=== PATIENT | female | born 1945 | race Caucasian/White ===

== ENCOUNTER 2016-08-09 09:58 | Inpatient (IN) | payer BC, OTHER ==
[~2016-08-09] VITALS: Ht 172.7 cm; Wt 69.5 kg
[~2016-08-09 09:58] MED LIST: ALBU1AER9 INH; ALBUAER2 INH; CHOL100010 PO; CLRD/12 PO; DSY/150 PO; EPP3/2 IM; FLUO0.05 TOP; FLUO20CA37 PO; FLUT0.0529 NAE; MAGN250T22 PO; MELA1TAB3 PO; RANI300T PO; RIZA10TA19 PO; SIMV20TA5 PO; ZAFI1TAB10 PO
[2016-08-09] MEDS ORDERED: SODIUM CHLORIDE 0.9% 1000ML 1,000 ML IV STA (10:13)
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
[2016-08-09 10:23] LABS: HEMATOCRIT 36.3 % (37-47); MEAN CELL VOLUME 74.8 fL (80-100); MEAN CORPUSCULAR HEMOGLOBIN 27.8 pg (25-34); MEAN CORPUSCULAR HGB CONC 37.2 g/dl (32-36); MEAN PLATELET VOLUME 9.5 fL (7.4-10.4); PLATELET COUNT 260 K/uL (130-400); RED BLOOD COUNT 4.85 M/uL (4.2-5.4); WHITE BLOOD COUNT 10.18 K/uL (4.8-10.8)
[2016-08-09] MEDS ORDERED: VNTHFA/IN INH (10:29)
--- NOTE | 2016-08-09 10:31 | DIAGNOSTIC IMAGING REPORT ---
CHEST ONE VIEW PORTABLE CLINICAL HISTORY: Weakness. Lightheaded. COMPARISON STUDY: Chest radiograph August 12, 2015. FINDINGS: No pneumothorax or pleural effusion is present. Pulmonary vascularity is normal. Cardiac size is normal. Mediastinal contours are normal. The appearance of the chest is unchanged. IMPRESSION: No acute cardiopulmonary findings. Electronically signed by: Wild Barreto M.D. 08/09/2016 10:29 AM Dictated Date/Time: 08/09/2016 10:29 AM
[2016-08-09 10:34] LABS: PROTHROMBIN TIME (PATIENT) 11.1 SECONDS (9.0-12.0)
[2016-08-09 10:39] LABS: CREATININE 2.7 mg/dl (0.60-1.20)
[2016-08-09 10:40] LABS: BUN/CREATININE RATIO 17.8 (10-20); CALCIUM 10.7 mg/dl (8.5-10.1); POTASSIUM 2.2 mmol/L (3.5-5.1)
[2016-08-09 10:46] LABS: ALB/GLOB RATIO 0.7 (0.9-2)
[2016-08-09] MEDS ORDERED: POTASSIUM CHLR 20 MEQ / WTR 20 MEQ in PREMIXED WATER 100 ML IV SCH (11:00)
[2016-08-09] MEDS ORDERED: POTASSIUM CHLORIDE 10 MEQ / 100ML WTR IV ONE (11:14)
[2016-08-09] MEDS ORDERED: MAGNESIUM HYDROXIDE SUSP 30 ML UDC PO PRN (13:30)
[2016-08-09] MEDS ORDERED: RIZATRIPTAN BENZOATE 10 MG TAB PO PRN (13:30)
[2016-08-09] MEDS: POTASSIUM CHLORIDE 10 MEQ / 100ML WTR IV SCH ×2 (13:30→13:31)
[2016-08-09] MEDS ORDERED: ONDANSETRON INJ 2 MG/ML 2 ML VIAL IV PRN (13:30)
[2016-08-09] MEDS ORDERED: ACETAMINOPHEN 325 MG TAB PO PRN (13:30)
[2016-08-09] MEDS ORDERED: ALBUTEROL 0.083% NEBU SOLN 3 ML VIAL INH PRN (13:30)
[2016-08-09] MEDS ORDERED: POLYETHYLENE (MIRALAX) 17 GM PACK PO PRN (13:30)
[2016-08-09] MEDS ORDERED: ALUMINUM/MAGNESIUM/SIMETH (MAALOX MAX) 30 ML UDC PO PRN (13:30)
[2016-08-09] MEDS ORDERED: NITROGLYCERIN 0.4 MG SL PER TAB CHARGE SL PRN (13:30)
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
[2016-08-09] MEDS: POTASSIUM CHLORIDE INJ 40 MEQ in SODIUM CHLORIDE 0.9% 1000ML 1,000 ML IV SCH (15:34)
[2016-08-09 17:27] VITALS: BP 111/75; PULSE 77; TEMP 37; O2SAT 97; Ht 172.7 cm; Wt 69.5 kg
[2016-08-09 18:49] VITALS: BP 118/73; PULSE 75; TEMP 36.9; O2SAT 100
[2016-08-09 20:00] VITALS: O2SAT 100
[2016-08-09] MEDS: BUDESONIDE/FORMOTEROL FUMARATE 80/4.5 60 PUFFS/INHALER INH SCH (21:00)
[2016-08-09] MEDS ORDERED: SIMVASTATIN 20 MG TAB PO SCH (21:00)
[2016-08-09] MEDS: HEPARIN SOD 5000 UNIT/0.5 ML CARP SQ SCH (21:06)
[2016-08-09 23:16] VITALS: BP 123/72; PULSE 75; TEMP 36.4; O2SAT 100
[2016-08-10] VITALS (10 sets, daily range): BP systolic 92–119; BP diastolic 55–70; PULSE 71–79; TEMP 36.6–37.1; O2SAT 98–100
[2016-08-10] MEDS: POTASSIUM CHLORIDE INJ 40 MEQ in SODIUM CHLORIDE 0.9% 1000ML 1,000 ML IV SCH (01:34)
[2016-08-10 06:16] LABS: BUN/CREATININE RATIO 18.1 (10-20); CREATININE 2.2 mg/dl (0.60-1.20); MAGNESIUM 2.3 mg/dl (1.8-2.4); POTASSIUM 2.4 mmol/L (3.5-5.1)
[2016-08-10] MEDS ORDERED: POTASSIUM CHLR 20 MEQ / WTR 40 MEQ in PREMIXED WATER 100 ML IV STA (06:20)
[2016-08-10] MEDS: POTASSIUM CHLR 10MEQ / WTR IV SCH ×4 (06:39→13:07)
[2016-08-10 07:20] LABS: HEMATOCRIT 27.6 % (37-47); MEAN CELL VOLUME 76.7 fL (80-100); MEAN CORPUSCULAR HEMOGLOBIN 27.5 pg (25-34); MEAN CORPUSCULAR HGB CONC 35.9 g/dl (32-36); MEAN PLATELET VOLUME 9.9 fL (7.4-10.4); PLATELET COUNT 179 K/uL (130-400); WHITE BLOOD COUNT 7.01 K/uL (4.8-10.8)
[2016-08-10 08:32] LABS: CALCIUM 8.6 mg/dl (8.5-10.1)
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
[2016-08-10] MEDS: BUDESONIDE/FORMOTEROL FUMARATE 80/4.5 60 PUFFS/INHALER INH SCH ×2 (09:38→20:54)
[2016-08-10] MEDS: PANTOprazole SOD 40 MG TAB PO SCH (09:39)
[2016-08-10] MEDS: FLUOXETINE HCL 20 MG CAP PO SCH (09:39)
[2016-08-10] MEDS: HEPARIN SOD 5000 UNIT/0.5 ML CARP SQ SCH ×2 (09:44→20:54)
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
[2016-08-10] MEDS: SODIUM BICARBONATE IV SCH ×2 (10:45→20:52)
[2016-08-10] MEDS: [UNRECOGNIZED DRUG - OTHER] IV SCH ×2 (10:45→20:52)
[2016-08-10] MEDS: POTASSIUM CHLORIDE IV SCH ×2 (10:45→20:52)
[2016-08-10 12:41] LABS: URINE APPEARANCE CLEAR (CLEAR); URINE BILIRUBIN NEG (NEG); URINE COLOR YELLOW; URINE EPITHELIAL CELL AUTO 20-30 /lpf (0-5); URINE NITRITE NEG (NEG); URINE SPECIFIC GRAVITY 1.005 (1.000-1.030); UROBILINOGEN NEG (NEG)
[2016-08-10 13:01] LABS: MANUAL MICROSCOPIC REQUIRED? NO; REVIEW REQ? NO
[2016-08-10 14:45] LABS: BUN/CREATININE RATIO 15.9 (10-20); CALCIUM 8.4 mg/dl (8.5-10.1); CREATININE 2.2 mg/dl (0.60-1.20); MAGNESIUM 2.2 mg/dl (1.8-2.4); POTASSIUM 2.5 mmol/L (3.5-5.1)
[2016-08-10 14:46] LABS: PHOSPHORUS 0.4 mg/dl (2.5-4.9)
[2016-08-10] MEDS ORDERED: POTASSIUM CHLORIDE 20 MEQ TABCR PO ONE (20:00)
[2016-08-10] MEDS ORDERED: NURSING VERBAL MED ORDER ONE (20:00)
[2016-08-11] VITALS (9 sets, daily range): BP systolic 93–111; BP diastolic 54–68; PULSE 72–78; TEMP 36.8–37; O2SAT 96–100
[2016-08-11 07:00] LABS: CALCIUM 9.1 mg/dl (8.5-10.1); CREATININE 2.2 mg/dl (0.60-1.20); MAGNESIUM 2.2 mg/dl (1.8-2.4); POTASSIUM 2.7 mmol/L (3.5-5.1)
[2016-08-11 07:13] LABS: HEMATOCRIT 25.5 % (37-47); MEAN CELL VOLUME 75.4 fL (80-100); MEAN CORPUSCULAR HEMOGLOBIN 28.1 pg (25-34); MEAN CORPUSCULAR HGB CONC 37.3 g/dl (32-36); MEAN PLATELET VOLUME 9.8 fL (7.4-10.4); PLATELET COUNT 186 K/uL (130-400); RED BLOOD COUNT 3.38 M/uL (4.2-5.4); WHITE BLOOD COUNT 6.76 K/uL (4.8-10.8)
[2016-08-11] MEDS: FLUOXETINE HCL 20 MG CAP PO SCH (07:29)
[2016-08-11] MEDS: BUDESONIDE/FORMOTEROL FUMARATE 80/4.5 60 PUFFS/INHALER INH SCH ×2 (07:30→20:43)
[2016-08-11] MEDS: PANTOprazole SOD 40 MG TAB PO SCH (07:30)
[2016-08-11] MEDS: HEPARIN SOD 5000 UNIT/0.5 ML CARP SQ SCH ×2 (07:31→20:44)
[2016-08-11] MEDS: POTASSIUM CHLORIDE IV SCH (07:33)
[2016-08-11] MEDS: SODIUM BICARBONATE IV SCH (07:33)
[2016-08-11] MEDS: [UNRECOGNIZED DRUG - OTHER] IV SCH (07:33)
[2016-08-11] MEDS ORDERED: POTASSIUM CHLORIDE 10 MEQ TABCR PO ONE (07:45)
[2016-08-11] MEDS ORDERED: POTASSIUM PHOS 3 MMOL/1 ML INFUSION IV STA (07:45)
[2016-08-11] MEDS ORDERED: POTASSIUM PHOSPHATE INJ 30 MMOL in SODIUM CHLORIDE 0.9% 500ML 500 ML IV ONE (08:15)
[2016-08-11 08:57] LABS: C-REACTIVE PROTEIN 0.38 mg/dl (0-0.29); THYROID STIMULATING HORMONE 2.03 uIu/ml (0.300-4.500)
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
[2016-08-11] MEDS ORDERED: POTASSIUM CHLORIDE 10 MEQ TABCR PO SCH (12:00)
[2016-08-11 15:57] LABS: BUN/CREATININE RATIO 9.4 (10-20); CALCIUM 8.5 mg/dl (8.5-10.1); CREATININE 2.2 mg/dl (0.60-1.20); PHOSPHORUS 2.1 mg/dl (2.5-4.9); POTASSIUM 3.2 mmol/L (3.5-5.1)
[2016-08-11] MEDS: SODIUM BICARBONATE 650 MG TAB PO SCH (20:44)
[2016-08-12 03:46] VITALS: BP 99/59; PULSE 73; TEMP 37; O2SAT 98
[2016-08-12 06:19] LABS: HEMATOCRIT 23.9 % (37-47); MEAN CELL VOLUME 75.9 fL (80-100); MEAN CORPUSCULAR HEMOGLOBIN 27.3 pg (25-34); MEAN PLATELET VOLUME 9.1 fL (7.4-10.4); PLATELET COUNT 148 K/uL (130-400); RED BLOOD COUNT 3.15 M/uL (4.2-5.4); WHITE BLOOD COUNT 5.01 K/uL (4.8-10.8)
[2016-08-12 06:57] LABS: BUN/CREATININE RATIO 10.2 (10-20); CALCIUM 8.3 mg/dl (8.5-10.1); MAGNESIUM 2.1 mg/dl (1.8-2.4); PHOSPHORUS 2.1 mg/dl (2.5-4.9); POTASSIUM 2.7 mmol/L (3.5-5.1)
[2016-08-12] MEDS ORDERED: POTASSIUM CHLORIDE 10 MEQ TABCR PO STA ×2 (07:10→08:01)
[2016-08-12 07:37] VITALS: BP 105/60; PULSE 79; TEMP 36.8; O2SAT 100
[2016-08-12] MEDS: BUDESONIDE/FORMOTEROL FUMARATE 80/4.5 60 PUFFS/INHALER INH SCH ×2 (08:24→20:48)
[2016-08-12] MEDS: PANTOprazole SOD 40 MG TAB PO SCH (08:24)
[2016-08-12] MEDS: FLUOXETINE HCL 20 MG CAP PO SCH (08:25)
[2016-08-12] MEDS: SODIUM BICARBONATE 650 MG TAB PO SCH ×2 (08:26→20:45)
[2016-08-12] MEDS: HEPARIN SOD 5000 UNIT/0.5 ML CARP SQ SCH ×2 (08:27→20:49)
[2016-08-12] MEDS: POTASSIUM CITRATE 10 MEQ TAB PO SCH ×2 (09:06→20:47)
[2016-08-12] MEDS: DEXTROSE 5% 1000ML 1,000 ML IV SCH ×2 (09:11→20:44)
[2016-08-12] MEDS ORDERED: POTASSIUM CHLORIDE 10 MEQ TABCR PO SCH (09:45)
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
--- NOTE | 2016-08-12 12:35 | Clinical Documentation Query ---
CLINICAL DOCUMENTATION QUERY Ms. DICKENS, In your clinical opinion is this patient being managed for: ( x ) Metabolic encephalopathy, treated and improving ( ) Other explanation of clinical findings (Please Explain) ( ) Unable to determine (Please Define) ( ) Need to Discuss ( ) Not Agree The medical record reflects the following clinical findings, treatment, and risk factors. Clinical Indicators: Progress note on 08/12 indicates pt with short term memory problems but appears more lucid compared to initial presentation-acute confusion related to electrolyte abnormalities Cr 2.70, K 2.3, phos 0.4, CO2 11 Treatment: IV K riders, IV bicarb, serial electrolytes q 12 hr initially, nephrology consult, sodium bicarb tabs, oral KCL, IV fluids, tele Risk Factors: metabolic acidosis, KENNEDY, hypokalemia Please clarify and document your clinical opinion in the progress notes and discharge summary. Terms such as "probable", "suspected", "likely", "questionable", "possible", or "still to be ruled out" are acceptable. IF IN AGREEMENT, YOU MUST DOCUMENT ABOVE DIAGNOSTIC STATEMENT IN DAILY PROGRESS NOTES AND DISCHARGE SUMMARY. This document is not part of the patient's record. Thank You, Verenice Acuna, RN [phone]
--- NOTE | 2016-08-12 12:36 | Clinical Documentation Query ---
CLINICAL DOCUMENTATION QUERY Dr. SUAREZ, In your clinical opinion is this patient being managed for: ( x ) Metabolic encephalopathy-treated and improving ( ) Other explanation of clinical findings (Please Explain) ( ) Unable to determine (Please Define) ( ) Need to Discuss ( ) Not Agree The medical record reflects the following clinical findings, treatment, and risk factors. Clinical Indicators: Progress note on 08/12 indicates pt with short term memory problems but appears more lucid compared to initial presentation-acute confusion related to electrolyte abnormalities Cr 2.70, K 2.3, phos 0.4, CO2 11 Treatment: IV K riders, IV bicarb, serial electrolytes q 12 hr initially, nephrology consult, sodium bicarb tabs, oral KCL, IV fluids, tele Risk Factors: metabolic acidosis, KENNEDY, hypokalemia Please clarify and document your clinical opinion in the progress notes and discharge summary. Terms such as "probable", "suspected", "likely", "questionable", "possible", or "still to be ruled out" are acceptable. IF IN AGREEMENT, YOU MUST DOCUMENT ABOVE DIAGNOSTIC STATEMENT IN DAILY PROGRESS NOTES AND DISCHARGE SUMMARY. This document is not part of the patient's record. Thank You, Verenice Acuna, RN [phone]
[2016-08-12 12:39] VITALS: BP 112/67; PULSE 73; TEMP 36.8; O2SAT 100
[2016-08-12 14:34] LABS: BUN/CREATININE RATIO 9.5 (10-20); POTASSIUM 3.1 mmol/L (3.5-5.1)
[2016-08-12 15:01] LABS: PHOSPHORUS 1.1 mg/dl (2.5-4.9)
[2016-08-12 15:27] VITALS: BP 136/76; PULSE 87; TEMP 37; O2SAT 100
[2016-08-12] MEDS ORDERED: POTASSIUM PHOS 3 MMOL/1 ML INFUSION IV STA (15:35)
[2016-08-12] MEDS ORDERED: POTASSIUM CHLORIDE 20 MEQ TABCR PO ONE (16:30)
[2016-08-12] MEDS ORDERED: POTASSIUM PHOSPHATE INJ 30 MMOL in SODIUM CHLORIDE 0.9% 500ML 500 ML IV SCH (16:30)
[2016-08-12 18:54] VITALS: BP 112/71; PULSE 82; TEMP 37.2; O2SAT 97
[2016-08-12 23:18] VITALS: BP 120/73; PULSE 83; TEMP 36.6; O2SAT 99
[2016-08-13 07:59] VITALS: BP 104/63; PULSE 75; TEMP 36.9; O2SAT 97
[2016-08-13 08:16] LABS: BUN/CREATININE RATIO 11.5 (10-20); CALCIUM 8.1 mg/dl (8.5-10.1); CREATININE 1.7 mg/dl (0.60-1.20); MAGNESIUM 1.8 mg/dl (1.8-2.4); POTASSIUM 3.5 mmol/L (3.5-5.1)
[2016-08-13 08:38] LABS: PHOSPHORUS 2.9 mg/dl (2.5-4.9)
[2016-08-13] MEDS: SODIUM BICARBONATE 650 MG TAB PO SCH ×2 (08:41→20:55)
[2016-08-13] MEDS: PANTOprazole SOD 40 MG TAB PO SCH (08:41)
[2016-08-13] MEDS: BUDESONIDE/FORMOTEROL FUMARATE 80/4.5 60 PUFFS/INHALER INH SCH ×2 (08:41→21:32)
[2016-08-13] MEDS: POTASSIUM CITRATE 10 MEQ TAB PO SCH ×2 (08:42→20:54)
[2016-08-13] MEDS: FLUOXETINE HCL 20 MG CAP PO SCH (08:42)
[2016-08-13] MEDS: HEPARIN SOD 5000 UNIT/0.5 ML CARP SQ SCH ×2 (08:44→20:54)
[2016-08-13] MEDS ORDERED: NURSING VERBAL MED ORDER ONE (11:00)
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
[2016-08-13 15:34] LABS: BUN/CREATININE RATIO 10.2 (10-20); CALCIUM 7.7 mg/dl (8.5-10.1); CREATININE 1.9 mg/dl (0.60-1.20); PHOSPHORUS 1.8 mg/dl (2.5-4.9); POTASSIUM 3.6 mmol/L (3.5-5.1)
[2016-08-13 16:15] VITALS: BP 130/81; PULSE 80; TEMP 36.8; O2SAT 95
[2016-08-13] MEDS ORDERED: SODIUM PHOSPHATE 3 MMOL/1 ML INFUSION IV STA (18:35)
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
[2016-08-13] MEDS ORDERED: SODIUM PHOSPHATE INJ 9 MMOL in SODIUM CHLORIDE 0.9% 250ML 250 ML IV ONE (19:00)
[2016-08-13 23:21] VITALS: BP 102/62; PULSE 73; TEMP 36.9; O2SAT 98
[2016-08-14 07:36] VITALS: BP 113/72; PULSE 68; TEMP 36.7; O2SAT 100
[2016-08-14 07:40] LABS: CALCIUM 8.2 mg/dl (8.5-10.1); CREATININE 1.8 mg/dl (0.60-1.20)
[2016-08-14] MEDS: PANTOprazole SOD 40 MG TAB PO SCH (08:04)
[2016-08-14] MEDS: BUDESONIDE/FORMOTEROL FUMARATE 80/4.5 60 PUFFS/INHALER INH SCH ×2 (08:04→22:04)
[2016-08-14] MEDS: FLUOXETINE HCL 20 MG CAP PO SCH (08:05)
[2016-08-14] MEDS: SODIUM BICARBONATE 650 MG TAB PO SCH ×2 (08:06→22:03)
[2016-08-14] MEDS: POTASSIUM CITRATE 10 MEQ TAB PO SCH ×2 (08:06→22:03)
[2016-08-14] MEDS: HEPARIN SOD 5000 UNIT/0.5 ML CARP SQ SCH ×2 (08:11→22:08)
[2016-08-14 08:14] LABS: FERRITIN 277.1 ng/ml (8.0-388.0); PHOSPHORUS 2.5 mg/dl (2.5-4.9)
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
[2016-08-14 15:37] VITALS: BP 118/75; PULSE 77; TEMP 36.6; O2SAT 99
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
[2016-08-14] MEDS ORDERED: ZCR20 PO (15:48)
[2016-08-14] MEDS ORDERED: SYMIN8045 INH (15:48)
[2016-08-14] MEDS ORDERED: URC10 PO (15:48)
[2016-08-14] MEDS ORDERED: SODI650T9 PO (15:48)
[2016-08-14] MEDS ORDERED: FLUO20CA36 PO (15:48)
[2016-08-14] MEDS ORDERED: MRLP17X PO (15:48)
[2016-08-14] MEDS ORDERED: RIZA10TA21 PO (15:48)
--- NOTE | 2016-08-14 15:50 | Discharge Instructions ---
Discharge Instructions Date of Service Aug 14, 2016. Admission Reason for Admission: Hypokalemia Discharge Discharge Diagnosis / Problem: ARF and hypokalemia Discharge Goals Goal(s): Diagnostic testing, Therapeutic intervention Activity Recommendations Activity Level: Assistance Required Therapies: Physical Therapy, Occupational Therapy . Additional Information Patient informed of condition: Yes Advance Directives: No DNR: No Level of Care: Acute Rehab Communicable Disease: Yes Prognosis: Improving Instructions / Follow-Up Instructions / Follow-Up Please check bi-weekly basic metabolic panel, magnesium, and phosphorus starting on 08/18/16. Results to Dr Mcfarlane, [facility] re: ARF, hypokalemia, suspicion of RTA. Fax results to Dr. Mcfarlane and Dr. Betancourt at [phone]. PATIENT WILL NEED TO SEE DR. MCFARLANE (OR DR. BETANCOURT IF DR. MCFARLANE IS NOT AVAILABLE ) WITHIN 10-14 DAYS. LASTLY, UPON DISCHARGE FROM [facility], PATIENT NEEDS A NEW PRIMARY CARE PHYSICIAN (PREVIOUS MD WAS DR. BERNADINE RINCON). Current Hospital Diet Patient's current hospital diet: AHA Diet (Heart Healthy) Discharge Diet Recommended Diet: AHA Diet (Heart Healthy) Pending Studies Studies pending at discharge: no Physician Orders On Transfer POLST Discussion: Not Applicable Laboratory Results Last 24 Hours Test 08/14/16 00:00 08/14/16 06:57 Urine Osmolality 206 mOms/kg Sodium Level 144 mmol/L Potassium Level 4.0 mmol/L Chloride Level 113 mmol/L Carbon Dioxide Level 24 mmol/L Anion Gap 7.0 mmol/L Blood Urea Nitrogen 18 mg/dl Creatinine 1.80 mg/dl Est Creatinine Clear Calc Drug Dose 29.7 ml/min Estimated GFR () 32.7 Estimated GFR (Non- 28.2 BUN/Creatinine Ratio 10.0 Random Glucose 96 mg/dl Calcium Level 8.2 mg/dl Phosphorus Level 2.5 mg/dl Magnesium Level 2.0 mg/dl Iron Level 49 mcg/dl Total Iron Binding Capacity 177 mcg/dl Transferrin 146 mg/dl Transferrin % Saturation 24 % Ferritin 277.1 ng/ml Albumin 2.9 gm/dl Medical Emergencies . Who to Call and When: Medical Emergencies: If at any time you feel your situation is an emergency, please call 911 immediately. . Non-Emergent Contact Non-Emergency issues call your: Primary Care Provider Call Non-Emergent contact if: temperature is above 100.5, your pain is concerning you, you have any medication questions . . "Provider Documentation" section prepared by Adebayo Melgar. Core Measure Problem Core Measures: None
[2016-08-14 16:00] VITALS: O2SAT 99
[2016-08-15 00:04] VITALS: BP 127/63; PULSE 77; TEMP 36.6; O2SAT 99
[2016-08-15 07:43] VITALS: BP 106/63; PULSE 73; TEMP 37.1; O2SAT 99
[2016-08-15 07:53] LABS: BUN/CREATININE RATIO 10.3 (10-20); CALCIUM 8.3 mg/dl (8.5-10.1); CREATININE 1.8 mg/dl (0.60-1.20); MAGNESIUM 2.1 mg/dl (1.8-2.4); PHOSPHORUS 2.4 mg/dl (2.5-4.9); POTASSIUM 3.9 mmol/L (3.5-5.1)
[2016-08-15] MEDS: BUDESONIDE/FORMOTEROL FUMARATE 80/4.5 60 PUFFS/INHALER INH SCH (08:27)
[2016-08-15] MEDS: FLUOXETINE HCL 20 MG CAP PO SCH (08:28)
[2016-08-15] MEDS: PANTOprazole SOD 40 MG TAB PO SCH (08:28)
[2016-08-15] MEDS: SODIUM BICARBONATE 650 MG TAB PO SCH (08:29)
[2016-08-15] MEDS: POTASSIUM CITRATE 10 MEQ TAB PO SCH (08:30)
[2016-08-15] MEDS: HEPARIN SOD 5000 UNIT/0.5 ML CARP SQ SCH (08:35)
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
[2016-08-15 13:49] VITALS: BP 106/63; PULSE 73; TEMP 37.1; O2SAT 99
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
== END 2016-08-15 14:25 | DRG 640 ==
LOC: ENRESERVDT → ENRESERVTM → EDBD 09:58 → C.EDB 09:59 → C.EDINP 13:37 → EDBEDREQ 14:25 → C.2T 17:15 → C.MED 08-12 18:35
PROVIDERS: ADMIT Internal Medicine; ATTEND Internal Medicine
DX: E87.6 Hypokalemia (principal); G93.41 Metabolic encephalopathy; N17.9 Acute kidney failure, unspecified; N18.4 Chronic kidney disease, stage 4 (severe); J45.909 Unspecified asthma, uncomplicated; G43.909 Migraine, unspecified, not intractable, without status migrainosus; E87.2 Acidosis; E78.00 Pure hypercholesterolemia, unspecified; G31.84 Mild cognitive impairment of uncertain or unknown etiology; Z51.5 Encounter for palliative care; E83.39 Other disorders of phosphorus metabolism

== ENCOUNTER → 2016-09-21 | Outpatient (CLI) | payer BC ==
[~2016-09-21] MED LIST changes: -ALBU1AER9 INH; -ALBUAER2 INH; -CHOL100010 PO; -CLRD/12 PO; -DSY/150 PO; -EPP3/2 IM; -FLUO0.05 TOP; +FLUO20CA36 PO; -FLUO20CA37 PO; -FLUT0.0529 NAE; -MAGN250T22 PO; -MELA1TAB3 PO; +MRLP17X PO; -RANI300T PO; -RIZA10TA19 PO; +RIZA10TA21 PO; -SIMV20TA5 PO; +SODI650T9 PO; +SYMIN8045 INH; +URC10 PO; -ZAFI1TAB10 PO; +ZCR20 PO
[2016-09-21 15:14] LABS: BLOOD UREA NITROGEN 19 mg/dl (7-18); BUN/CREATININE RATIO 12.9 (10-20); CALCIUM 8.5 mg/dl (8.5-10.1); CARBON DIOXIDE 19 mmol/L (21-32); CHLORIDE 117 mmol/L (98-107); GLUCOSE 97 mg/dl (70-99); MAGNESIUM 2.6 mg/dl (1.8-2.4); PHOSPHORUS 2.8 mg/dl (2.5-4.9); POTASSIUM 3.1 mmol/L (3.5-5.1); SODIUM 144 mmol/L (136-145)
--- NOTE | 2016-09-26 10:46 | CODING QUERY MEDICAL NECESSITY ---
SUPPORTING DIAGNOSIS NEEDED Dr. Betancourt, A supporting diagnosis is required for the test/procedure performed on this patient in order for us to be reimbursed by the patient's insurance. Please provide a supporting diagnosis for the following test/procedure listed below next to the test name along with your signature. *If there is no additional diagnosis for this patient that would support the following test/procedure please document that below next to the test/procedure. Test(s)/Procedure(s) that require a supporting diagnosis: * ([id number]) VITAMIN D ASSAY DIAGNOSIS: DATE OF SERVICE: 09/21/16 Provider Signature: Date: Thank you Nigel Goodman [facility] Information Management Once completed, please kindly fax back to [phone] For questions please call [phone]
== END | disposition home or self-care (01) ==
LOC: C.LAB1850 12:11
PROVIDERS: ATTEND Internal Medicine Nephrology
DX: E87.8 Other disorders of electrolyte and fluid balance, not elsewhere classified (principal); E55.9 Vitamin D deficiency, unspecified

== ENCOUNTER → 2016-10-27 | Outpatient (CLI) | payer BC, OTHER ==
[2016-10-27 14:03] LABS: BLOOD UREA NITROGEN 18 mg/dl (7-18); CARBON DIOXIDE 17 mmol/L (21-32); CHLORIDE 116 mmol/L (98-107); GLUCOSE 85 mg/dl (70-99); MAGNESIUM 2.9 mg/dl (1.8-2.4); POTASSIUM 2.8 mmol/L (3.5-5.1); SODIUM 143 mmol/L (136-145)
[2016-10-27 14:04] LABS: PHOSPHORUS 2.9 mg/dl (2.5-4.9)
== END | disposition home or self-care (01) ==
LOC: C.LAB1850 12:13
PROVIDERS: ATTEND Internal Medicine Nephrology
DX: E87.8 Other disorders of electrolyte and fluid balance, not elsewhere classified (principal)

== ENCOUNTER → 2016-11-22 | Outpatient (CLI) | payer BC, OTHER ==
[~2016-11-22] MED LIST changes: +MXL10 PO; -RIZA10TA21 PO
[2016-11-22 14:00] LABS: BLOOD UREA NITROGEN 17 mg/dl (7-18); BUN/CREATININE RATIO 11.6 (10-20); CALCIUM 9.6 mg/dl (8.5-10.1); CARBON DIOXIDE 22 mmol/L (21-32); CHLORIDE 112 mmol/L (98-107); GLUCOSE 80 mg/dl (70-99); MAGNESIUM 2.6 mg/dl (1.8-2.4); PHOSPHORUS 2.8 mg/dl (2.5-4.9); POTASSIUM 3.7 mmol/L (3.5-5.1); SODIUM 140 mmol/L (136-145)
== END | disposition home or self-care (01) ==
LOC: C.LAB1850 11:52
PROVIDERS: ATTEND Internal Medicine Nephrology
DX: E87.8 Other disorders of electrolyte and fluid balance, not elsewhere classified (principal)

== ENCOUNTER → 2016-12-23 | Outpatient (CLI) | payer BC, OTHER ==
[2016-12-23 16:36] LABS: BASO % 0.6 %; BASO ABS # 0.02 K/uL (0-0.2); COMPLETE YES; HEMATOCRIT 37.3 % (37-47); IG% 0.3 %; LYMPH % 18.4 %; LYMPH ABS # 0.59 K/uL (1.2-3.4); MEAN CELL VOLUME 91.2 fL (80-100); MEAN CORPUSCULAR HEMOGLOBIN 28.9 pg (25-34); MEAN CORPUSCULAR HGB CONC 31.6 g/dl (32-36); MEAN PLATELET VOLUME 10.6 fL (7.4-10.4); MONO % 12.5 %; NEUT % 64.2 %; PLATELET COUNT 191 K/uL (130-400); RED BLOOD COUNT 4.09 M/uL (4.2-5.4); WHITE BLOOD COUNT 3.21 K/uL (4.8-10.8)
[2016-12-23 16:45] LABS: ALT/SGPT 18 U/L (12-78); AST/SGOT 20 U/L (15-37); BLOOD UREA NITROGEN 16 mg/dl (7-18); BUN/CREATININE RATIO 11.5 (10-20); CALCIUM 9.4 mg/dl (8.5-10.1); CARBON DIOXIDE 30 mmol/L (21-32); CHLORIDE 106 mmol/L (98-107); GLUCOSE 81 mg/dl (70-99); POTASSIUM 4.5 mmol/L (3.5-5.1); SODIUM 139 mmol/L (136-145)
[2016-12-23 16:55] LABS: ALKALINE PHOSPHATASE 102 U/L (45-117)
[2016-12-23 17:01] LABS: CHOLESTEROL/HDL RATIO 2.9
[2016-12-23 17:18] LABS: LYME DISEASE AB IGG NEG (NEG); LYME DISEASE AB IGM NEG (NEG)
--- NOTE | 2017-01-03 08:12 | CODING QUERY MEDICAL NECESSITY ---
CQSUPPORTING DIAGNOSIS NEEDED A supporting diagnosis is required for the test/procedure performed on this patient in order for us to be reimbursed by the patient's insurance. Please provide a supporting diagnosis for the following test/procedure listed below next to the test name along with your signature. *If there is no additional diagnosis for this patient that would support the following test/procedure please document that below next to the test/procedure. Test(s)/Procedure(s) that require a supporting diagnosis: DOS 12/23/16 VITAMIN B12 TEST VITAMIN D TEST Provider Signature: Date: Thank you Jeny Martin [facility] Information Management Once completed, please kindly fax back to [phone] For questions please call [phone]
== END | disposition home or self-care (01) ==
LOC: C.LABBC 12:06
PROVIDERS: ATTEND Psychiatry & Neurology Neurology
DX: E78.00 Pure hypercholesterolemia, unspecified (principal); F03.90 Unspecified dementia, unspecified severity, without behavioral disturbance, psychotic disturbance, mood disturbance, and anxiety; R41.2 Retrograde amnesia; R41.3 Other amnesia

== ENCOUNTER → 2017-01-05 | Outpatient (CLI) | payer BC, OTHER ==
[~2017-01-05] MED LIST changes: +GADAVIST IV PRN
--- NOTE | 2017-01-05 11:19 | DIAGNOSTIC IMAGING REPORT ---
MRI OF THE BRAIN WITHOUT AND WITH IV CONTRAST CLINICAL HISTORY: F03.90 Dementia without behavioral disturbance, unspecified kirit COMPARISON STUDY: CT scan dated 05/05/2014 TECHNIQUE: MRI of the brain was performed from the vertex to the skull base utilizing various T1 and T2 weighted sequences. Following the IV administration of 6.5 mL of Gadavist contrast, additional enhanced images were obtained. FINDINGS: Sagittal T1, axial diffusion, proton density and T2 weighted axial, coronal FLAIR, and pre and post axial T1-weighted images were acquired. These were supplemented with post gadolinium coronal T1 weighted images. No intra or extra-axial mass lesions are visualized. Axial diffusion-weighted images reveal no evidence of acute or subacute infarction. There is no evidence of ventricular dilatation. Proton density T2-weighted and FLAIR images reveal scattered foci of increased T2 signal within the white matter, likely on a small vessel basis. There are also foci of increased T2 and FLAIR signal within the stella, likely a small vessel basis. There are no abnormal flow voids. There is no evidence of pathologic enhancement. There is a partially empty sella. IMPRESSION: 1. No evidence of intracranial mass 2. No evidence of acute or subacute infarction 3. Scattered foci of increased T2 signal within the white matter likely on a small vessel basis Electronically signed by: Venkat Rodriguez M.D. 01/05/2017 11:18 AM Dictated Date/Time: 01/05/2017 11:16 AM
== END | disposition home or self-care (01) ==
LOC: C.MRI 10:27
PROVIDERS: ATTEND Psychiatry & Neurology Neurology
DX: F03.90 Unspecified dementia, unspecified severity, without behavioral disturbance, psychotic disturbance, mood disturbance, and anxiety (principal)

== ENCOUNTER → 2017-02-16 | Outpatient (CLI) | payer BC, OTHER ==
[~2017-02-16] MED LIST changes: -GADAVIST IV PRN
[2017-02-16 12:28] LABS: BASO % 0.3 %; BASO ABS # 0.01 K/uL (0-0.2); COMPLETE YES; EOS % 3.5 %; HEMATOCRIT 37.1 % (37-47); LYMPH % 13.8 %; LYMPH ABS # 0.43 K/uL (1.2-3.4); MEAN CELL VOLUME 89.2 fL (80-100); MEAN CORPUSCULAR HEMOGLOBIN 27.9 pg (25-34); MEAN CORPUSCULAR HGB CONC 31.3 g/dl (32-36); MEAN PLATELET VOLUME 9.5 fL (7.4-10.4); MONO % 10.3 %; NEUT % 72.1 %; PLATELET COUNT 176 K/uL (130-400); RED BLOOD COUNT 4.16 M/uL (4.2-5.4); WHITE BLOOD COUNT 3.11 K/uL (4.8-10.8)
[2017-02-16 13:05] LABS: BLOOD UREA NITROGEN 24 mg/dl (7-18); BUN/CREATININE RATIO 18.7 (10-20); CALCIUM 9.2 mg/dl (8.5-10.1); CARBON DIOXIDE 28 mmol/L (21-32); CHLORIDE 104 mmol/L (98-107); GLUCOSE 82 mg/dl (70-99); MAGNESIUM 2.5 mg/dl (1.8-2.4); PHOSPHORUS 2.9 mg/dl (2.5-4.9); SODIUM 138 mmol/L (136-145)
== END | disposition home or self-care (01) ==
LOC: C.LAB1850 11:17
PROVIDERS: ATTEND Internal Medicine Nephrology
DX: E87.6 Hypokalemia (principal); D64.9 Anemia, unspecified

== ENCOUNTER 2022-08-19 15:24 | Inpatient (IN) ==
[2022-08-19] MEDS ORDERED: SODIUM CHLORIDE 0.9% 1000ML 1,000 ML IV SCH (15:45)
[2022-08-19 16:15] LABS: Basophils # (auto) 0.02 K/uL (0-0.2); Basophils % (auto) 0.2 %; Eosinophils # (auto) 0.02 K/uL (0-0.50); Eosinophils % (auto) 0.2 %; Hematocrit (blood only) 32.9 % (37.0-47.0); Hemoglobin 10.7 g/dl (12.0-16.0); Immature Granulocytes # (auto) 0.05 K/uL (0.01-0.20); Immature Granulocytes % (auto) 0.6 %; Lymphocytes # (auto) 0.33 K/uL (1.2-3.4); Lymphocytes % (auto) 3.9 %; Mean Corpuscular Hemoglobin 27.9 pg (25.0-34.0); Mean Corpuscular Hgb Conc 32.5 g/dL (32.0-36.0); Mean Corpuscular Volume 85.7 fL (80.0-100.0); Mean Platelet Volume 10.1 fL (9.4-12.4); Monocytes # (auto) 0.58 K/uL (0.11-0.59); Monocytes % (auto) 6.8 %; Neutrophils # (auto) 7.47 K/uL (1.40-6.50); Neutrophils % (auto) 88.3 %; Platelet Count 187 K/uL (130-400); RDW Coefficient of Variation 13.5 % (11.5-14.5); Red Blood Count 3.84 M/uL (4.20-5.40); White Blood Count 8.47 K/ul (4.8-10.8)
--- NOTE | 2022-08-19 16:16 | Emergency Department Note ---
Impression & Plan Weakness, Major neurocognitive disorder, LLL pneumonia, Cough ED Provider Note Provider: Blair Flower MD DATE OF SERVICE: 08/19/2022 CHIEF COMPLAINT: Weak HISTORY OF PRESENT ILLNESS: Patient is a 76-year-old female past medical history including CKD, GERD, migraine, neurocognitive disorder presenting here via ambulance from her home. Report the patient's more confused and weak than norm al. Patient states she just feels she does not have energy today. Reports a slight cough. Denies significant headache, chest pain, or abdominal pain. Denies falling. Unsure if she is the best historian. Later talked with the patient's brother via phone who reports that she has had decline in the last several years. Did review recent PCPs note with concerns for her safety at home. PAST MEDICAL HISTORY: As noted above MEDICATIONS: Reviewed home medication list SOCIAL HISTORY: Resides at home by her report PHYSICAL EXAM: GENERAL: alert in no acute distress on stretcher but not the best historian Head: normocephalic and atraumatic EYES: No injection, discharge or icterus. NECK: Trachea midline. Supple. ENT: Mucous membranes pink and moist. LUNGS: Airway patent. No retractions. Breath sounds clear HEART: Regular rate and rhythm. No chest wall tenderness ABDOMEN: Soft and non-tender, without guarding or rebound. SKIN: Acyanotic, warm, dry, without rashes EXTREMITIES: Without swelling, tenderness or deformity NEUROLOGICAL: No focal deficits. No aphasia. No facial droop or slurred speech. Normal strength and tone in the extremities. Sensation to gross touch normal. P oor memory EK bpm normal sinus rhythm. No PVC or PAC. No acute ST segment elevation or depression with a QTc of 418. CONTINUOUS CARDIAC MONITORING: was ordered and showed a heart rate of 70s-80s bpm in normal sinus rhythm Patient's laboratory studies and imaging reviewed. Differential includes Infection, dehydration, metabolic abnormality, hypo/hyperglycemia, electrolyte disturbance, anemia, hypoxia, cardiac sources, intracerebral event, toxicologic, neurologic, as well as other pathologies. IMPRESSION/MEDICAL DECISION MAKING: Patient with some increased weakness or confusion. Not the best historian has a history of some memory issues at baseline. No trauma reported. No evidence of trauma on her person. Basic blood work obtained here. CT of the head obtained given reported increased confusion. Slight anemia. No leukocytosis. No severe electrolyte abnormalities noted. Normal CK and normal troponin. No evidence of acute hepatitis. TSH within normal limits. CT head per radiology without acute intracranial bleed noted. Chest x-ray however questions possible left lung base finding and she does report a bit of a cough. On reassessment the patient resting in bed. She is unsure why she is here or what is going on. Seems to have some significant short-term memory issues. Discussed with her brother via phone reports that she is currently in an apartment with assistance several hours a day but that things have been declining recently. Reports that she is more confused and does not eat and drink well. Does not appear significantly dehydrated on exam here. Sons are around but live in [place] in [place]. Brother believes she likely needs placement services. Discussion with the patient she is not so sure on this given that she has a dog. She does however state that she would like treatment. Do not feel she safe for discharge home alone at this time. Mother is of advanced age as well and has limited ability provide significant assistance. Discussed with hospitalist. Did discuss with pharmacist and given her history of pseudomonal infection in the past recommended starting on cefepime and doxycycline pending sputum and MRSA testing DIAGNOSIS: Left lower lobe pneumonia, weak, memory issues DISPOSITION: Hospitalist will evaluate Patient was agreeable with this plan. Patient will likely need placement services. Past Med/Surg History Medical History Anxiety Asthma Contusion of left forearm Depression Facial laceration Facial laceration Metabolic acidosis with normal anion gap and failure of bicarbonate regeneration Right hip pain Right lumbar radiculitis Short-term memory loss Surgical History S/P hysterectomy with oophorectomy S/P shoulder surgery S/P total knee arthroplasty Family History Mother Congestive heart failure Diabetes Heart disease Other Family history non-contributory Denies family history of Ovarian cancer Prostate cancer Myocardial infarction Breast cancer Colorectal cancer Social History Smoking Status: Unknown if ever smoked Second Hand Exposure: No; Hx Alcohol Use: Yes (social) Alcohol Intake Frequency: Monthly or Less Hx Substance Use: No Preferred Language: Slovak Hearing Ability: Normal marital status: Current Living Situation: Alone current occupational status: retired Feels Safe at Home: Yes Childhood Exposure to Second-Hand Smoke: No Dental Care, Regularly: No Physical Activity Frequency: 3-4 Times per Week Seatbelt Use: always Sunscreen Use: Yes Allergies Allergies Allergy/AdvReac Type Severity Reaction Status Date / Time Bactrim Allergy Severe SHORTNESS Verified 08/11/16 07:44 OF BREATH blue dye Allergy Severe UNKNOWN Verified 06/27/22 08:11 duloxetine Allergy Severe UNKNOWN Verified 06/27/22 08:11 erythromycin base Allergy Severe UNKNOWN Verified 06/27/22 08:11 naproxen Allergy Severe Verified 06/27/22 08:11 quetiapine Allergy Severe UNKNOWN Verified 06/27/22 08:11 shellfish derived Allergy Severe UNKNOWN Verified 06/27/22 08:11 Sulfa (Sulfonamide Allergy Severe Shortness Verified 06/27/22 08:11 Antibiotics) of Breath sulfamethoxazole Allergy Severe SHORTNESS Verified 06/27/22 08:11 OF BREATH trimethoprim Allergy Severe SHORTNESS Verified 06/27/22 08:11 OF BREATH venlafaxine Allergy Severe UNKNOWN Verified 06/27/22 08:11 zolpidem Allergy Severe UNKNOWN Verified 06/27/22 08:11 Penicillins Allergy Mild Verified 06/27/22 08:11 bee venom protein (honey bee) Allergy Unknown ANAPHYLAXIS Verified 06/27/22 08:11 hornet venom Allergy Unknown ANAPHYLAXIS Verified 06/27/22 08:11 Iodinated Contrast Media Allergy Unknown UNKNOWN Verified 06/27/22 08:11 NSAIDS (Non-Steroidal Allergy Unknown UNKNOWN Verified 06/27/22 08:11 Anti-Inflamma Home Meds Home Medications Medication Instructions Recorded Confirmed Calma Capsules 0 cap PO UD 02/22/20 06/27/22 acetaminophen 650 mg 650 mg PO Q8H PRN Pain 02/22/20 06/27/22 tablet,extended release (Tylenol 8 Hour) diphenhydramine HCl 25 mg capsule 25 mg PO HS PRN . 02/22/20 06/27/22 (Benadryl) multivitamin 1 tab PO DAILY 02/22/20 06/27/22 Previous Rx's Medication Instructions Recorded Saccharomyces boulardii 250 mg 250 mg PO BID #20 caps 12/29/20 capsule (Florastor) aspirin 81 mg tablet,delayed 81 mg PO DAILY #90 tabs 06/27/22 release fluoxetine 20 mg capsule 40 mg PO DAILY 30 days #60 caps 06/27/22 potassium citrate 15 mEq (1,620 15 meq PO BID #60 tabs 06/27/22 mg) tablet,extended release simvastatin 20 mg tablet 20 mg PO DAILY #90 tabs 06/27/22 Results & Data (ED) Vital Signs Vital Signs - 24 hr 08/19/22 15:33 08/19/22 15:44 08/19/22 16:06 Temperature 38.3 C H Temperature Source Oral Pulse Rate 89 84 Pulse Rate from SpO2 Sensor Pulse Rhythm Regular Respiratory Rate 19 Respiratory Effort / Characteristics Non-Labored Spontaneous Respiratory Depth Normal Blood Pressure 137/67 Blood Pressure Mean 90 Blood Pressure Position Sitting Pulse Oximetry 99 96 Oxygen Delivery Method Room Air Room Air Sepsis Recent Fever Within 48 Hours Yes Sepsis New/Unexplained Change in Mental Status Yes Sepsis Action Taken by Nursing No Action Required 08/19/22 15:38 08/19/22 16:00 08/19/22 16:00 Temperature Temperature Source Pulse Rate 83 83 Pulse Rate from SpO2 Sensor 83 83 Pulse Rhythm Respiratory Rate 20 21 Respiratory Effort / Characteristics Respiratory Depth Blood Pressure 123/70 Blood Pressure Mean 87 Blood Pressure Position Pulse Oximetry 98 98 Oxygen Delivery Method Sepsis Recent Fever Within 48 Hours Sepsis New/Unexplained Change in Mental Status Sepsis Action Taken by Nursing 08/19/22 16:30 08/19/22 16:30 08/19/22 17:00 Temperature Temperature Source Pulse Rate 85 Pulse Rate from SpO2 Sensor 84 Pulse Rhythm Respiratory Rate 20 Respiratory Effort / Characteristics Respiratory Depth Blood Pressure 137/69 128/70 Blood Pressure Mean 91 89 Blood Pressure Position Pulse Oximetry 98 Oxygen Delivery Method Sepsis Recent Fever Within 48 Hours Sepsis New/Unexplained Change in Mental Status Sepsis Action Taken by Nursing 08/19/22 17:00 08/19/22 17:39 08/19/22 18:00 Temperature Temperature Source Pulse Rate 82 92 H Pulse Rate from SpO2 Sensor Pulse Rhythm Respiratory Rate 20 12 Respiratory Effort / Characteristics Respiratory Depth Blood Pressure 137/88 Blood Pressure Mean 104 Blood Pressure Position Pulse Oximetry Oxygen Delivery Method Sepsis Recent Fever Within 48 Hours Sepsis New/Unexplained Change in Mental Status Sepsis Action Taken by Nursing 08/19/22 18:00 08/19/22 19:23 Temperature Temperature Source Pulse Rate 83 83 Pulse Rate from SpO2 Sensor 83 Pulse Rhythm Respiratory Rate 20 19 Respiratory Effort / Characteristics Respiratory Depth Blood Pressure 131/64 Blood Pressure Mean 86 Blood Pressure Position Pulse Oximetry 99 97 Oxygen Delivery Method Room Air Sepsis Recent Fever Within 48 Hours Sepsis New/Unexplained Change in Mental Status Sepsis Action Taken by Nursing Laboratory Data 08/19/22 15:39 08/19/22 15:39 Lab Results 08/19/22 08/19/22 08/19/22 Range/Units 15:39 15:39 15:39 WBC 8.47 (4.8-10.8) K/ul RBC 3.84 L (4.20-5.40) M/uL Hgb 10.7 L (12.0-16.0) g/dl Hct 32.9 L (37.0-47.0) % MCV 85.7 (80.0-100.0) fL MCH 27.9 (25.0-34.0) pg MCHC 32.5 (32.0-36.0) g/dL RDW Std Deviation 42.0 (36.4-46.3) fL RDW Coeff of Alycia 13.5 (11.5-14.5) % Plt Count 187 (130-400) K/uL MPV 10.1 (9.4-12.4) fL Immature Gran % (Auto) 0.6 % Neut % (Auto) 88.3 % Lymph % (Auto) 3.9 % Chambers % (Auto) 6.8 % Eos % (Auto) 0.2 % Baso % (Auto) 0.2 % Neut # (Auto) 7.47 H (1.40-6.50) K/uL Lymph # (Auto) 0.33 L (1.2-3.4) K/uL Chambers # (Auto) 0.58 (0.11-0.59) K/uL Eos # (Auto) 0.02 (0-0.50) K/uL Baso # (Auto) 0.02 (0-0.2) K/uL Immature Gran # (Auto) 0.05 (0.01-0.20) K/uL Sodium 134 L (136-145) mmol/L Potassium 3.5 (3.5-5.1) mmol/L Chloride 106 (98-107) mmol/L Carbon Dioxide 23 (21-32) mmol/L Anion Gap 5 (3-11) BUN 17 (6-23) mg/dl Creatinine 1.01 (0.6-1.2) mg/dl Est Cr Clr Drug Dosing 44.4 ml/min Est GFR ( Amer) 63.1 ml/min Est GFR (Non-Af Amer) 54.4 ml/min BUN/Creatinine Ratio 16.8 (10-20) Glucose 112 H (70-99(Fasting)) mg/dl Lactate (0.4-2.0) mmol/L Calcium 8.9 (8.6-10.3) mg/dl Magnesium 2.0 (1.7-2.4) mg/dl Total Bilirubin 1.6 H (0.2-1.0) mg/dl AST 17 (13-39) U/L ALT 9 (7-52) U/L Alkaline Phosphatase 103 (34-104) U/L Total Creatine Kinase 50 (26-192) U/L Troponin I High Sens 7.3 (0-14) pg/ml Total Protein 8.3 (6.0-8.3) gm/dl Albumin 3.9 (3.4-5.0) gm/dl Globulin 4.4 H (2.5-4.0) gm/dl Albumin/Globulin Ratio 0.9 (0.9-2) TSH 1.260 (0.300-4.500) uIu/ml Urine Color Urine Appearance (Clear) Urine pH (4.5-7.5) Ur Specific Redfield (1.000-1.030) Urine Protein (Negative) Urine Glucose (UA) (Negative) Urine Ketones (Negative) Urine Blood (Negative) Urine Nitrite (Negative) Urine Bilirubin (Negative) Urine Urobilinogen (Negative) Ur Leukocyte Esterase (Negative) Urine WBC (Auto) (0-5) /hpf Urine RBC (Auto) (0-4) /hpf U Hyaline Cast (Auto) (0-5) /lpf U Epithel Cells (Auto) (0-5) /lpf Urine Bacteria (Auto) (Negative) Nasal Screen MRSA (PCR) (Negative) 08/19/22 08/19/22 08/19/22 Range/Units 16:23 16:42 18:17 WBC (4.8-10.8) K/ul RBC (4.20-5.40) M/uL Hgb (12.0-16.0) g/dl Hct (37.0-47.0) % MCV (80.0-100.0) fL MCH (25.0-34.0) pg MCHC (32.0-36.0) g/dL RDW Std Deviation (36.4-46.3) fL RDW Coeff of Alycia (11.5-14.5) % Plt Count (130-400) K/uL MPV (9.4-12.4) fL Immature Gran % (Auto) % Neut % (Auto) % Lymph % (Auto) % Chambers % (Auto) % Eos % (Auto) % Baso % (Auto) % Neut # (Auto) (1.40-6.50) K/uL Lymph # (Auto) (1.2-3.4) K/uL Chambers # (Auto) (0.11-0.59) K/uL Eos # (Auto) (0-0.50) K/uL Baso # (Auto) (0-0.2) K/uL Immature Gran # (Auto) (0.01-0.20) K/uL Sodium (136-145) mmol/L Potassium (3.5-5.1) mmol/L Chloride (98-107) mmol/L Carbon Dioxide (21-32) mmol/L Anion Gap (3-11) BUN (6-23) mg/dl Creatinine (0.6-1.2) mg/dl Est Cr Clr Drug Dosing ml/min Est GFR ( Amer) ml/min Est GFR (Non-Af Amer) ml/min BUN/Creatinine Ratio (10-20) Glucose (70-99(Fasting)) mg/dl Lactate 0.7 (0.4-2.0) mmol/L Calcium (8.6-10.3) mg/dl Magnesium (1.7-2.4) mg/dl Total Bilirubin (0.2-1.0) mg/dl AST (13-39) U/L ALT (7-52) U/L Alkaline Phosphatase (34-104) U/L Total Creatine Kinase (26-192) U/L Troponin I High Sens (0-14) pg/ml Total Protein (6.0-8.3) gm/dl Albumin (3.4-5.0) gm/dl Globulin (2.5-4.0) gm/dl Albumin/Globulin Ratio (0.9-2) TSH (0.300-4.500) uIu/ml Urine Color Yellow Urine Appearance Clear (Clear) Urine pH 7.0 (4.5-7.5) Ur Specific Redfield 1.017 (1.000-1.030) Urine Protein 1+ H (Negative) Urine Glucose (UA) Negative (Negative) Urine Ketones Negative (Negative) Urine Blood Negative (Negative) Urine Nitrite Negative (Negative) Urine Bilirubin Negative (Negative) Urine Urobilinogen Negative (Negative) Ur Leukocyte Esterase Negative (Negative) Urine WBC (Auto) 1-5 (0-5) /hpf Urine RBC (Auto) 0-4 (0-4) /hpf U Hyaline Cast (Auto) 0 (0-5) /lpf U Epithel Cells (Auto) 5-10 H (0-5) /lpf Urine Bacteria (Auto) 1+ H (Negative) Nasal Screen MRSA (PCR) Negative (Negative) Administered Medications Discontinued Medications Acetaminophen (Acetaminophen 325 Mg Tab) 650 mg PO NOW STA Stop: 08/19/22 19:12 Last Admin: 08/19/22 19:25 Dose: 650 mg Documented By: NEPTALI Doxycycline Hyclate (Doxycycline Hyclate 100 Mg Cap) 100 mg PO NOW STA Stop: 08/19/22 19:12 Last Admin: 08/19/22 19:25 Dose: 100 mg Documented By: NEPTALI Sodium Chloride (Nss 1000ml) 1,000 mls @ 999 mls/hr IV .Q1H1M DUYEN Stop: 08/19/22 16:45 Last Infusion: 08/19/22 19:25 Dose: 0 mls/hr Documented By: Admin: 08/19/22 16:17 Dose: 999 mls/hr Documented By: JUDAH Cefepime HCl (Maxipime) 2,000 mg in 20 mls @ 5 mls/min IV NOW STA; Protocol Stop: 08/19/22 19:14 Last Admin: 08/19/22 19:25 Dose: 5 mls/min Documented By: NEPTALI Imaging Data Radiologist's Impression: Chest X-Ray 08/19/22 15:45 SINGLE VIEW CHEST CLINICAL HISTORY: Generalized weakness. FINDINGS: An AP, portable, upright chest radiograph is compared to study dated 07/06/2022. The cardiomediastinal silhouette is unremarkable. Chronic interstitial thickening similar to previous. Question mild airspace consolidation at the left lung base. No large pleural effusion or pneumothorax is seen. The skeletal structures are osteopenic. The bony thorax is grossly intact. IMPRESSION: Question mild airspace consolidation at the left lung base. Correlate clinically for evidence of an infectious/inflammatory pneumonitis. A PA and lateral examination is recommended for further assessment. ACT 112: Negative or not required by law. Electronically signed by: Galindo Lopez M.D. 08/19/2022 4:[address] 08/19/22 15:[address] DOSE: 691.05 mGy.cm HISTORY: weak, confused TECHNIQUE: Multiaxial CT images of the head were performed without the use of intravenous contrast. Automated exposure control was utilized for this study. A dose lowering technique was utilized adhering to the principles of ALARA. Comparison: Head CT 12/28/2020. Findings: Moderate mucosal thickening within the left maxillary sinus and left ethmoid air cells. The mastoid air cells are clear. The calvarium and skull base are intact. There is no mass, hematoma, midline shift, acute infarct. White matter hypodensity is nonspecific but suggestive of microvascular ischemic change. The ventricles and sulci demonstrate mild age-related involutional changes. Impression: No acute intracranial abnormality. Atrophy and microvascular ischemic changes. ACT 112: Negative or not required by law. Electronically signed by: Reese Connors M.D. 08/19/2022 5:00 PM Discharge Plan Visit Data Chief Complaint: Altered Mental Status ED Provider: Blair Flower Discharge Problem: Weakness, Major neurocognitive disorder, LLL pneumonia, Cough Patient Disposition: Being Evaluated by Hospitalist Forms Stand Alone Forms: My [facility] Prescriptions Prescriptions: No Action simvastatin 20 mg tablet 20 mg PO DAILY Qty: 90 3RF potassium citrate 15 mEq tablet extended release 15 meq PO BID Qty: 60 0RF fluoxetine 20 mg capsule 40 mg PO DAILY 30 Days Qty: 60 4RF aspirin 81 mg tablet,delayed release (DR/EC) 81 mg PO DAILY Qty: 90 1RF multivitamin Tablet 1 tab PO DAILY acetaminophen [Tylenol 8 Hour] 650 mg Tablet Extended Release 650 mg PO Q8H PRN (Reason: Pain) diphenhydramine HCl [Benadryl] 25 mg Capsule 25 mg PO HS PRN (Reason: .) Calma Capsules 0 cap PO UD Saccharomyces boulardii [Florastor] 250 mg capsule 250 mg PO BID Qty: 20 0RF Rx Instructions: swallow whole Referrals Referrals: Yamil Zimmerman MD [Primary Care Provider] - [facility] pneumonia Qualifiers: Pneumonia type: due to unspecified organism Qualified Code(s): J18.9 - Pneumonia, unspecified organism
--- NOTE | 2022-08-19 16:23 | XRay Report ---
SINGLE VIEW CHEST CLINICAL HISTORY: Generalized weakness. FINDINGS: An AP, portable, upright chest radiograph is compared to study dated 07/06/2022. The cardiome diastinal silhouette is unremarkable. Chronic interstitial thickening similar to previous. Question m ild airspace consolidation at the left lung base. No large pleural effusion or pneumothorax is seen. The skeletal structures are osteopenic. The bony thorax is grossly intact. IMPRESSION: Question mild airspace consolidation at the left lung base. Correlate clinically for evid ence of an infectious/inflammatory pneumonitis. A PA and lateral examination is recommended for [facility] assessment. ACT 112: Negative or not required by law. Electronically signed by: Galindo Lopez M.D. 08/19/2022 4:21 PM
[2022-08-19 16:32] LABS: Albumin Globulin Ratio 0.9 (0.9-2); Albumin Level 3.9 gm/dl (3.4-5.0); BUN Creatinine Ratio 16.8 (10-20); Bilirubin,Total 1.6 mg/dl (0.2-1.0); Calcium 8.9 mg/dl (8.6-10.3); Creatinine Clr Calc Pharmacy 44.4 ml/min; Est GFR (African American) 63.1 ml/min; Est GFR (Non-African American) 54.4 ml/min; Globulin 4.4 gm/dl (2.5-4.0); Potassium 3.5 mmol/L (3.5-5.1); Total Protein 8.3 gm/dl (6.0-8.3)
[2022-08-19 16:40] LABS: Troponin I High Sensitivity 7.3 pg/ml (0-14)
[2022-08-19 16:58] LABS: Appearance Urine Clear (Clear); Bacteria Urine Automated 1+ (Negative); Bilirubin Urine Negative (Negative); Blood Urine Negative (Negative); Cast Urine Automated 0 /lpf (0-5); Color Urine Yellow; Glucose Urine UA Negative (Negative); Ketones Urine Negative (Negative); Leukocyte Esterase Urine Negative (Negative); Nitrite Urine Negative (Negative); Protein Urine 1+ (Negative); RBC Urine Automated 0-4 /hpf (0-4); Specific Gravity Urine 1.017 (1.000-1.030); Urobilinogen Urine Negative (Negative)
--- NOTE | 2022-08-19 17:01 | CT Scan Report ---
HEAD CT NONCONTRAST CT DOSE: 691.05 mGy.cm HISTORY: weak, confused TECHNIQUE: Multiaxial CT images of the head were performed without the use of intravenous contrast. A utomated exposure control was utilized for this study. A dose lowering technique was utilized adheri ng to the principles of ALARA. Comparison: Head CT 12/28/2020. Findings: Moderate mucosal thickening within the left maxillary sinus and left ethmoid air cells. The mastoid air cells are clear. The calvarium and skull base are intact. There is no mass, hematoma, mi dline shift, acute infarct. White matter hypodensity is nonspecific but suggestive of microvascular i schemic change. The ventricles and sulci demonstrate mild age-related involutional changes. Impression: No acute intracranial abnormality. Atrophy and microvascular ischemic changes. ACT 112: Negative or not required by law. Electronically signed by: Reese Connors M.D. 08/19/2022 5:00 PM
[2022-08-19] MEDS ORDERED: ACETAMINOPHEN 325 MG TAB PO STA (19:11)
[2022-08-19] MEDS ORDERED: CEFEPIME 2,000 MG/20 ML VIAL IV STA (19:11)
[2022-08-19] MEDS ORDERED: DOXYCYCLINE HYCLATE 100 MG CAP PO STA (19:11)
--- NOTE | 2022-08-19 20:34 | History & Physical Report ---
Date of Service August 19, 2022 Assessment & Plan (1) Weakness: (2) LLL pneumonia: (3) Unsatisfactory living conditions: (4) Poor personal hygiene: (5) At risk for unsafe behavior: (6) Anxiety: (7) Asthma: (8) Depression: (9) Major neurocognitive disorder: (10) Hypercholesterolemia: (11) Chronic cerebral ischemia: (12) Depression: (13) GERD without esophagitis: (14) Vitamin D deficiency: (15) Short-term memory loss: Plan Left lower lobe pneumonia with hypoxia- Patient febrile in ED with temperature 38.3 Admit to monitored bed Cefepime 2 g IV every 12 hours Azithromycin 500 mg IV daily Albuterol HFA 2 puffs 4 times daily as needed Guaifenesin extended release 600 mg p.o. twice daily Methylprednisolone 20 mg IV every 8 hours Does not appear to be an aspiration issue Short-term memory loss/major cognitive disorder/unsatisfactory living conditions/poor personal hygiene/at risk for unsafe behavior- Noted his issues in the outpatient setting Patient has had maximum of 80 hours and home health, and is still needing further assistance She should be considered for a SNF Anxiety with depression- Continue fluoxetine 40 mg daily Hyperlipidemia- Continue simvastatin 20 mg daily DVT prophylaxis- SCDs, Lovenox subcu History of Present Illness Chief Complaint: The patient is brought to the emergency department via EMS, due to concerns regarding increased confusion, worsening generalized weakness, worsening cough, and generalized malaise. Primary Care Provider: Yamil Zimmerman MD The patient is a 76-year-old female with a past medical history including unsatisfactory living conditions, poor personal hygiene, high risk for unsafe behavior, progressive major neurocognitive disorder, anxiety, asthma, depression, right lumbar radiculitis, CKD, chronic cerebral ischemia, GERD, vitamin D deficiency and short-term memory loss. The patient presents to the emergency department with symptoms as noted above. There have been attempts in the outpatient setting to maximize patient's assistance within the home care, however, the max has been 80 hours/week, and the patient needs more than that. Allergies Allergy/AdvReac Type Severity Reaction Status Date / Time Bactrim Allergy Severe SHORTNESS Verified 08/11/16 07:44 OF BREATH blue dye Allergy Severe UNKNOWN Verified 06/27/22 08:11 duloxetine Allergy Severe UNKNOWN Verified 06/27/22 08:11 erythromycin base Allergy Severe UNKNOWN Verified 06/27/22 08:11 naproxen Allergy Severe Verified 06/27/22 08:11 quetiapine Allergy Severe UNKNOWN Verified 06/27/22 08:11 shellfish derived Allergy Severe UNKNOWN Verified 06/27/22 08:11 Sulfa (Sulfonamide Allergy Severe Shortness Verified 06/27/22 08:11 Antibiotics) of Breath sulfamethoxazole Allergy Severe SHORTNESS Verified 06/27/22 08:11 OF BREATH trimethoprim Allergy Severe SHORTNESS Verified 06/27/22 08:11 OF BREATH venlafaxine Allergy Severe UNKNOWN Verified 06/27/22 08:11 zolpidem Allergy Severe UNKNOWN Verified 06/27/22 08:11 Penicillins Allergy Mild Verified 06/27/22 08:11 bee venom protein (honey bee) Allergy Unknown ANAPHYLAXIS Verified 06/27/22 08:11 hornet venom Allergy Unknown ANAPHYLAXIS Verified 06/27/22 08:11 Iodinated Contrast Media Allergy Unknown UNKNOWN Verified 06/27/22 08:11 NSAIDS (Non-Steroidal Allergy Unknown UNKNOWN Verified 06/27/22 08:11 Anti-Inflamma Home Medications Medication Instructions Recorded Confirmed Type Calma Capsules 0 cap PO UD 02/22/20 06/27/22 History acetaminophen 650 mg 650 mg PO Q8H PRN Pain 02/22/20 06/27/22 History tablet,extended release (Tylenol 8 Hour) diphenhydramine HCl 25 mg capsule 25 mg PO HS PRN . 02/22/20 06/27/22 History (Benadryl) multivitamin 1 tab PO DAILY 02/22/20 06/27/22 History Saccharomyces boulardii 250 mg 250 mg PO BID #20 caps 12/29/20 06/27/22 Rx capsule (Florastor) aspirin 81 mg tablet,delayed 81 mg PO DAILY #90 tabs 06/27/22 06/27/22 Rx release fluoxetine 20 mg capsule 40 mg PO DAILY 30 days #60 caps 06/27/22 06/27/22 Rx potassium citrate 15 mEq (1,620 15 meq PO BID #60 tabs 06/27/22 06/27/22 Rx mg) tablet,extended release simvastatin 20 mg tablet 20 mg PO DAILY #90 tabs 06/27/22 06/27/22 Rx Past Med/Surg History Medical History Anxiety Asthma Contusion of left forearm Depression Facial laceration Facial laceration Metabolic acidosis with normal anion gap and failure of bicarbonate regeneration Right hip pain Right lumbar radiculitis Short-term memory loss Surgical History S/P hysterectomy with oophorectomy S/P shoulder surgery S/P total knee arthroplasty Family History Mother Congestive heart failure Diabetes Heart disease Other Family history non-contributory Denies family history of Ovarian cancer Prostate cancer Myocardial infarction Breast cancer Colorectal cancer Social History Smoking Status: Unknown if ever smoked Second Hand Exposure: No; Hx Alcohol Use: Yes (social) Alcohol Intake Frequency: Monthly or Less Hx Substance Use: No Preferred Language: Thai Hearing Ability: Normal marital status: Current Living Situation: Alone current occupational status: retired Feels Safe at Home: Yes Childhood Exposure to Second-Hand Smoke: No Dental Care, Regularly: No Physical Activity Frequency: 3-4 Times per Week Seatbelt Use: always Sunscreen Use: Yes Review of Systems Review of Systems: The patient denies chest pain, palpitations, lower extremity swelling, sore throat, fevers, chills, sweats, nausea, vomiting, diarrhea , constipation, abdominal pain, pelvic pain, blood in urine or stool, dysuria, urinary frequency or urgency, lightheadedness, dizziness, headache, loss of consciousness, rash, abnormal bruising or bleeding, imbalance, focal weakness, numbness or tingling in arms or legs, back or neck pain, or night sweats. The review of systems is otherwise negative other than for that already noted above, and at least 10 systems have been reviewed. Physical Exam Physical Exam: The patient is awake, alert, normocephalic and atraumatic, lying in bed and in no acute distress. HEENT--PERRL, EOMI, mucous membranes and oropharynx dry. Neck--supple. No JVD. No bruits. Thyroid normal, trachea midline, no adenopathy. Heart--normal S1 and S2. No murmurs, rubs or gallops. Lungs--coarse breath sounds left base. No respiratory distress, no accessory muscle use. Abdomen--normal bowel sounds and soft. Nontender. Nondistended, no hernias or masses, no organomegaly. Extremities--no cyanosis or clubbing. No edema. Dermatologic--normal skin turgor, normal color, no abnormal lymph nodes, no rash. Neurologic--cranial nerves II through XII grossly intact. Rheumatologic--normal range of motion. Psychiatric--normal affect. Results & Data Results & Data Vital Signs (Past 12 Hours) Vital Signs Temp Pulse Resp BP Pulse Ox O2 Del Method 08/19/22 19:23 83 19 131/64 97 Room Air 08/19/22 18:00 83 20 99 08/19/22 18:00 137/88 08/19/22 17:39 92 H 12 08/19/22 17:00 82 20 08/19/22 17:00 128/70 08/19/22 16:30 85 20 98 08/19/22 16:30 137/69 08/19/22 16:00 83 21 98 08/19/22 16:00 123/70 08/19/22 15:38 83 20 98 08/19/22 16:06 96 Room Air 08/19/22 15:44 84 08/19/22 15:33 38.3 C H 89 19 137/67 99 Room Air Laboratory Results Laboratory Results WBC 8.47 K/ul (4.8-10.8) 08/19/22 15:39 RBC 3.84 M/uL (4.20-5.40) L 08/19/22 15:39 Hgb 10.7 g/dl (12.0-16.0) L 08/19/22 15:39 Hct 32.9 % (37.0-47.0) L 08/19/22 15:39 MCV 85.7 fL (80.0-100.0) 08/19/22 15:39 MCH 27.9 pg (25.0-34.0) 08/19/22 15:39 MCHC 32.5 g/dL (32.0-36.0) 08/19/22 15:39 RDW Std Deviation 42.0 fL (36.4-46.3) 08/19/22 15:39 RDW Coeff of Alycia 13.5 % (11.5-14.5) 08/19/22 15:39 Plt Count 187 K/uL (130-400) 08/19/22 15:39 MPV 10.1 fL (9.4-12.4) 08/19/22 15:39 Immature Gran % (Auto) 0.6 % 08/19/22 15:39 Neut % (Auto) 88.3 % 08/19/22 15:39 Lymph % (Auto) 3.9 % 08/19/22 15:39 Aiken % (Auto) 6.8 % 08/19/22 15:39 Eos % (Auto) 0.2 % 08/19/22 15:39 Baso % (Auto) 0.2 % 08/19/22 15:39 Neut # (Auto) 7.47 K/uL (1.40-6.50) H 08/19/22 15:39 Lymph # (Auto) 0.33 K/uL (1.2-3.4) L 08/19/22 15:39 Aiken # (Auto) 0.58 K/uL (0.11-0.59) 08/19/22 15:39 Eos # (Auto) 0.02 K/uL (0-0.50) 08/19/22 15:39 Baso # (Auto) 0.02 K/uL (0-0.2) 08/19/22 15:39 Immature Gran # (Auto) 0.05 K/uL (0.01-0.20) 08/19/22 15:39 Sodium 134 mmol/L (136-145) L 08/19/22 15:39 Potassium 3.5 mmol/L (3.5-5.1) 08/19/22 15:39 Chloride 106 mmol/L (98-107) 08/19/22 15:39 Carbon Dioxide 23 mmol/L (21-32) 08/19/22 15:39 Anion Gap 5 (3-11) 08/19/22 15:39 BUN 17 mg/dl (6-23) 08/19/22 15:39 Creatinine 1.01 mg/dl (0.6-1.2) 08/19/22 15:39 Est Cr Clr Drug Dosing 44.4 ml/min 08/19/22 15:39 Est GFR ( Amer) 63.1 ml/min 08/19/22 15:39 Est GFR (Non-Af Amer) 54.4 ml/min 08/19/22 15:39 BUN/Creatinine Ratio 16.8 (10-20) 08/19/22 15:39 Glucose 112 mg/dl (70-99(Fasting)) H 08/19/22 15:39 Lactate 0.7 mmol/L (0.4-2.0) 08/19/22 16:23 Calcium 8.9 mg/dl (8.6-10.3) 08/19/22 15:39 Magnesium 2.0 mg/dl (1.7-2.4) 08/19/22 15:39 Total Bilirubin 1.6 mg/dl (0.2-1.0) H 08/19/22 15:39 AST 17 U/L (13-39) 08/19/22 15:39 ALT 9 U/L (7-52) 08/19/22 15:39 Alkaline Phosphatase 103 U/L (34-104) 08/19/22 15:39 Total Creatine Kinase 50 U/L (26-192) 08/19/22 15:39 Troponin I High Sens 7.3 pg/ml (0-14) 08/19/22 15:39 Total Protein 8.3 gm/dl (6.0-8.3) 08/19/22 15:39 Albumin 3.9 gm/dl (3.4-5.0) 08/19/22 15:39 Globulin 4.4 gm/dl (2.5-4.0) H 08/19/22 15:39 Albumin/Globulin Ratio 0.9 (0.9-2) 08/19/22 15:39 TSH 1.260 uIu/ml (0.300-4.500) 08/19/22 15:39 Urine Color Yellow 08/19/22 16:42 Urine Appearance Clear (Clear) 08/19/22 16:42 Urine pH 7.0 (4.5-7.5) 08/19/22 16:42 Ur Specific Celina 1.017 (1.000-1.030) 08/19/22 16:42 Urine Protein 1+ (Negative) H 08/19/22 16:42 Urine Glucose (UA) Negative (Negative) 08/19/22 16:42 Urine Ketones Negative (Negative) 08/19/22 16:42 Urine Blood Negative (Negative) 08/19/22 16:42 Urine Nitrite Negative (Negative) 08/19/22 16:42 Urine Bilirubin Negative (Negative) 08/19/22 16:42 Urine Urobilinogen Negative (Negative) 08/19/22 16:42 Ur Leukocyte Esterase Negative (Negative) 08/19/22 16:42 Urine WBC (Auto) 1-5 /hpf (0-5) 08/19/22 16:42 Urine RBC (Auto) 0-4 /hpf (0-4) 08/19/22 16:42 U Hyaline Cast (Auto) 0 /lpf (0-5) 08/19/22 16:42 U Epithel Cells (Auto) 5-10 /lpf (0-5) H 08/19/22 16:42 Urine Bacteria (Auto) 1+ (Negative) H 08/19/22 16:42 Nasal Screen MRSA (PCR) Negative (Negative) 08/19/22 18:17 SARS-CoV-2, RNA, NAAT NEGATIVE (NEGATIVE) 08/19/22 16:17 Impressions Chest X-Ray 08/19/22 15:45 SINGLE VIEW CHEST CLINICAL HISTORY: Generalized weakness. FINDINGS: An AP, portable, upright chest radiograph is compared to study dated 07/06/2022. The cardiomediastinal silhouette is unremarkable. Chronic interstitial thickening similar to previous. Question mild airspace consolidation at the left lung base. No large pleural effusion or pneumothorax is seen. The skeletal structures are osteopenic. The bony thorax is grossly intact. IMPRESSION: Question mild airspace consolidation at the left lung base. Correlate clinically for evidence of an infectious/inflammatory pneumonitis. A PA and lateral examination is recommended for further assessment. ACT 112: Negative or not required by law. Electronically signed by: Galindo Lopez M.D. 08/19/2022 4:[address] 08/19/22 15:[address] DOSE: 691.05 mGy.cm HISTORY: weak, confused TECHNIQUE: Multiaxial CT images of the head were performed without the use of intravenous contrast. Automated exposure control was utilized for this study. A dose lowering technique was utilized adhering to the principles of ALARA. Comparison: Head CT 12/28/2020. Findings: Moderate mucosal thickening within the left maxillary sinus and left ethmoid air cells. The mastoid air cells are clear. The calvarium and skull base are intact. There is no mass, hematoma, midline shift, acute infarct. White matter hypodensity is nonspecific but suggestive of microvascular ischemic change. The ventricles and sulci demonstrate mild age-related involutional changes. Impression: No acute intracranial abnormality. Atrophy and microvascular ischemic changes. ACT 112: Negative or not required by law. Electronically signed by: Reese Connors M.D. 08/19/2022 5:00 PM Code Status & VTE Plan Code Status Full code VTE Prophylaxis Plan VTE Prophylaxis will be ordered: Yes PG Care Time/CCT Total # of Minutes Spent Total Time Spent with Patient: Total time spent is greater than 50% in coordination of care (as documented) at patient's floor/unit and/or counseling patient: Coding Level of Care Code 97338 INT INP/OBS CARE 3/75MIN Diagnoses Weakness R53.1 LLL pneumonia J18.9 Pneumonia type: due to unspecified organism Unsatisfactory living conditions Z59.1 Poor personal hygiene R46.0 At risk for unsafe behavior Z91.89 Anxiety F41.9 Asthma J45.909 Depression F32.9 Major neurocognitive disorder F01.50 Hypercholesterolemia E78.00 Chronic cerebral ischemia I67.82 GERD without esophagitis K21.9 Vitamin D deficiency E55.9 Short-term memory loss R41.3 (2) LLL pneumonia Pneumonia type: due to unspecified organism Qualified Code(s): J18.9 - Pneumonia, unspecified organism
[2022-08-19] MEDS ORDERED: NSS + 20MEQ KCL 20 MEQ/1,000 ML BAG IV SCH (22:08)
[2022-08-19] MEDS ORDERED: NON-FORMULARY MEDICATION (Acetaminophen [Tylenol 8 Hour] 650 mg Tablet Extended Release) PO PRN (22:08)
[2022-08-19] MEDS ORDERED: ALBUTEROL HFA 8 GM INHALER INH PRN (22:08)
[2022-08-19] MEDS ORDERED: ONDANSETRON INJ 2 MG/ML 2 ML VIAL IV PRN (22:08)
[2022-08-20] MEDS: guaiFENesin 600 MG TABCR PO SCH ×3 (00:57→20:00)
[2022-08-20] MEDS: POTASSIUM CITRATE 10 MEQ TAB PO SCH ×3 (00:58→20:00)
[2022-08-20] MEDS: methylPREDNISolone 20 MG in SYRINGE 0 ML IV SCH ×5 (00:59→22:07)
[2022-08-20] MEDS: ENOXAPARIN INJ 30 MG/0.3 ML SYR SQ SCH ×2 (00:59→20:00)
[2022-08-20] MEDS: SACCHAROMYCES BOULARDII 250 MG CAP PO SCH ×3 (00:59→20:00)
--- NOTE | 2022-08-20 07:43 | Electrocardiogram Report ---
Test Reason : Blood Pressure : / mmHG Vent. Rate : 083 BPM Atrial Rate : 083 BPM P-R Int : 178 ms QRS Dur : 078 ms QT Int : 356 ms P-R-T Axes : 079 047 063 degrees QTc Int : 418 ms Normal sinus rhythm When compared with ECG of 06-JUL-2022 10:13, Premature atrial complexes are no longer Present Inverted T waves have replaced nonspecific T wave abnormality in Anterior leads Confirmed by Simon Schmidt ([id number] on 08/20/2022 7:43:37 AM Referred By: REFERRED SELF Confirmed By:Zaid Schmidt
[2022-08-20 07:53] LABS: Hematocrit (blood only) 35.2 % (37.0-47.0); Hemoglobin 11.2 g/dl (12.0-16.0); Mean Corpuscular Hemoglobin 27.8 pg (25.0-34.0); Mean Corpuscular Hgb Conc 31.8 g/dL (32.0-36.0); Mean Corpuscular Volume 87.3 fL (80.0-100.0); Mean Platelet Volume 10.3 fL (9.4-12.4); Platelet Count 161 K/uL (130-400); RDW Coefficient of Variation 13.3 % (11.5-14.5); RDW Standard Deviation 42.6 fL (36.4-46.3); Red Blood Count 4.03 M/uL (4.20-5.40)
[2022-08-20 08:10] LABS: Albumin Level 3.8 gm/dl (3.4-5.0); Basophils # (auto) 0.01 K/uL (0-0.2); Basophils % (auto) 0.1 %; Calcium 9.2 mg/dl (8.6-10.3); Creatinine Clr Calc Pharmacy 53.4 ml/min; Est GFR (African American) 78.8 ml/min; Immature Granulocytes # (auto) 0.06 K/uL (0.01-0.20); Immature Granulocytes % (auto) 0.6 %; Lymphocytes # (auto) 0.28 K/uL (1.2-3.4); Lymphocytes % (auto) 2.8 %; Magnesium 2.2 mg/dl (1.7-2.4); Monocytes # (auto) 0.18 K/uL (0.11-0.59); Monocytes % (auto) 1.8 %; Neutrophils # (auto) 9.37 K/uL (1.40-6.50); Neutrophils % (auto) 94.7 %; Phosphorus 2.8 mg/dl (2.5-4.9); Potassium 3.7 mmol/L (3.5-5.1); RBC Morphology Unremarkable
--- NOTE | 2022-08-20 08:43 | Hospitalist Progress Note ---
Date of Service August 20, 2022 Assessment & Plan (1) LLL pneumonia: Plan: acute pneumonia with systemic complications Left lower lobe pneumonia with acute hypoxic resppiratory failrue-consider CAP Cefepime 2 g IV every 12 hours,Azithromycin 500 mg IV daily Albuterol HFA 2 puffs 4 times daily as needed Guaifenesin extended release 600 mg p.o. twice daily Methylprednisolone 20 mg IV every 8 hours, taper to po prednisone (2) Depression: Plan: chronic unclear if unstable (3) Major neurocognitive disorder: Plan: chronic progressive moderate risk Short-term memory loss/major cognitive disorder/unsatisfactory living conditions/poor personal hygiene/at risk for unsafe behavior- Noted his issues in the outpatient setting Patient has had maximum of 80 hours and home health, and is still needing further assistance She should be considered for a SNF (4) Unsatisfactory living conditions: (5) GERD without esophagitis: (6) Vitamin D deficiency: Plan DVT prophylaxis- SCDs, Lovenox subcu Admission and Anticipated Discharge Date Admission Date: August 19, 2022 Subjective Patient is pleasant and conversant she is oriented x2 very clear documentation she is unable to care for herself at home however she is very stable and doing well at the present time Physical Exam Physical Exam: Awake alert appropriate casual conversation but only oriented x2 Lung exam shows likely changes of COPD no focal deficits wheezes or air loss Cardiac exam is regular Results & Data Results & Data Vital Signs (Past 12 Hours) Vital Signs Temp Pulse Pulse Resp BP BP Pulse Ox 08/20/22 07:00 66 08/20/22 07:54 97.7 F 65 18 127/71 96 08/20/22 03:14 97.9 F 87 18 128/74 97 08/20/22 01:25 71 08/19/22 23:08 98.2 F 68 18 117/70 97 08/19/22 22:00 78 21 103/58 L 98 08/19/22 21:30 81 22 123/63 98 08/19/22 21:00 21 113/60 97 O2 Del Method 08/20/22 07:00 08/20/22 07:54 Room Air 08/20/22 03:14 Room Air 08/20/22 01:25 08/19/22 23:08 Room Air 08/19/22 22:00 08/19/22 21:30 08/19/22 21:00 Laboratory Results Reviewed CBC reviewed PRP PG Care Time/CCT Total # of Minutes Spent Total Time Spent with Patient: Total time spent is greater than 50% in coordination of care (as documented) at patient's floor/unit and/or counseling patient: Coding Level of Care Code 62373 SUB INP/OBS CARE 2/35MIN Diagnoses LLL pneumonia J18.9 Pneumonia type: due to unspecified organism Depression F32.9 Major neurocognitive disorder F01.50 Unsatisfactory living conditions Z59.1 GERD without esophagitis K21.9 Vitamin D deficiency E55.9 (1) LLL pneumonia Pneumonia type: due to unspecified organism Qualified Code(s): J18.9 - Pneumonia, unspecified organism
[2022-08-20] MEDS ORDERED: SIMVASTATIN 20 MG TAB PO SCH (09:00)
[2022-08-20] MEDS: AZITHROMYCIN 500 MG in DEXTROSE 5% 250 ML IV SCH (09:35)
[2022-08-20] MEDS: CEFEPIME 2,000 MG in SYRINGE 0 ML IV SCH ×2 (09:36→19:49)
[2022-08-20] MEDS: FLUoxetine HCL 20 MG CAP PO SCH (09:43)
[2022-08-20] MEDS: ASPIRIN 81 MG ECTAB PO SCH (09:43)
[2022-08-20] MEDS: MULTIVITAMIN TAB PO SCH (09:43)
[2022-08-20] MEDS: SIMVASTATIN 20 MG TAB PO SCH (20:00)
[2022-08-21 07:28] LABS: Basophils # (auto) 0.01 K/uL (0-0.2); Basophils % (auto) 0.1 %; Hematocrit (blood only) 35.3 % (37.0-47.0); Hemoglobin 11.6 g/dl (12.0-16.0); Immature Granulocytes # (auto) 0.07 K/uL (0.01-0.20); Immature Granulocytes % (auto) 0.5 %; Lymphocytes # (auto) 0.65 K/uL (1.2-3.4); Mean Corpuscular Hemoglobin 27.8 pg (25.0-34.0); Mean Corpuscular Hgb Conc 32.9 g/dL (32.0-36.0); Mean Corpuscular Volume 84.7 fL (80.0-100.0); Mean Platelet Volume 10.2 fL (9.4-12.4); Monocytes # (auto) 0.88 K/uL (0.11-0.59); Monocytes % (auto) 6.8 %; Neutrophils # (auto) 11.31 K/uL (1.40-6.50); Neutrophils % (auto) 87.6 %; Platelet Count 243 K/uL (130-400); RDW Coefficient of Variation 13.4 % (11.5-14.5); RDW Standard Deviation 41.4 fL (36.4-46.3); Red Blood Count 4.17 M/uL (4.20-5.40); White Blood Count 12.92 K/ul (4.8-10.8)
[2022-08-21 07:49] LABS: Albumin Level 3.8 gm/dl (3.4-5.0); BUN Creatinine Ratio 25.3 (10-20); Calcium 9.5 mg/dl (8.6-10.3); Creatinine Clr Calc Pharmacy 45.3 ml/min; Est GFR (African American) 64.6 ml/min; Est GFR (Non-African American) 55.7 ml/min; Magnesium 2.2 mg/dl (1.7-2.4); Phosphorus 2.1 mg/dl (2.5-4.9); Potassium 3.9 mmol/L (3.5-5.1)
--- NOTE | 2022-08-21 08:06 | Hospitalist Progress Note ---
Date of Service August 21, 2022 Assessment & Plan (1) LLL pneumonia: Plan: acute pneumonia with systemic complications Left lower lobe pneumonia with acute hypoxic resppiratory failrue-consider CAP Cefepime 2 g IV every 12 hours,Azithromycin 500 mg IV daily, changed to azithromycin po Albuterol HFA 2 puffs 4 times daily as needed Guaifenesin extended release 600 mg p.o. twice daily Methylprednisolone 20 mg IV every 8 hours, taper to po prednisone, reduce dose to 20 mg (2) Depression: Plan: chronic unclear if unstable (3) Major neurocognitive disorder: Plan: chronic progressive moderate risk Short-term memory loss/major cognitive disorder/unsatisfactory living conditions/poor personal hygiene/at risk for unsafe behavior- Noted his issues in the outpatient setting Patient has had maximum of 80 hours and home health, and is still needing further assistance She should be considered for a SNF (4) Unsatisfactory living conditions: (5) GERD without esophagitis: (6) Vitamin D deficiency: Plan DVT prophylaxis- SCDs, Lovenox subcu Admission and Anticipated Discharge Date Admission Date: August 19, 2022 Subjective Patient is pleasant and conversant she is oriented x2 very clear documentation she is unable to care for herself at home however she is very stable and doing well at the present time Physical Exam Physical Exam: Awake alert appropriate casual conversation but only oriented x2 Lung exam shows likely changes of COPD no focal deficits wheezes or air loss Cardiac exam is regular Results & Data Results & Data Vital Signs (Past 12 Hours) Vital Signs Temp Pulse Pulse Resp BP Pulse Ox O2 Del Method 08/21/22 08:03 97.7 F 76 18 155/76 H 98 Room Air 08/21/22 03:29 97.9 F 80 20 148/72 H 97 Room Air 08/21/22 00:45 91 H 08/20/22 22:58 98.4 F 77 16 139/69 97 Room Air 08/20/22 20:22 98.6 F 75 18 123/64 96 Room Air PG Care Time/CCT Total # of Minutes Spent Total Time Spent with Patient: Total time spent is greater than 50% in coordination of care (as documented) at patient's floor/unit and/or counseling patient: Coding Level of Care Code 43411 SUB INP/OBS CARE 2/35MIN Diagnoses LLL pneumonia J18.9 Pneumonia type: due to unspecified organism Depression F32.9 Major neurocognitive disorder F01.50 Unsatisfactory living conditions Z59.1 GERD without esophagitis K21.9 Vitamin D deficiency E55.9 (1) LLL pneumonia Pneumonia type: due to unspecified organism Qualified Code(s): J18.9 - Pneumonia, unspecified organism
[2022-08-21] MEDS ORDERED: predniSONE 20 MG TAB PO SCH (09:00)
[2022-08-21] MEDS: CEFEPIME 2,000 MG in SYRINGE 0 ML IV SCH (09:42)
[2022-08-21] MEDS: ASPIRIN 81 MG ECTAB PO SCH (09:42)
[2022-08-21] MEDS: guaiFENesin 600 MG TABCR PO SCH ×2 (09:43→19:25)
[2022-08-21] MEDS: MULTIVITAMIN TAB PO SCH (09:43)
[2022-08-21] MEDS: SACCHAROMYCES BOULARDII 250 MG CAP PO SCH ×2 (09:43→19:25)
[2022-08-21] MEDS: FLUoxetine HCL 20 MG CAP PO SCH (09:43)
[2022-08-21] MEDS: AZITHROMYCIN 500 MG in DEXTROSE 5% 250 ML IV SCH (09:44)
[2022-08-21] MEDS: POTASSIUM CITRATE 10 MEQ TAB PO SCH ×2 (09:45→19:25)
[2022-08-21] MEDS: ENOXAPARIN INJ 40 MG/0.4 ML SYR SQ SCH (19:24)
[2022-08-21] MEDS: SIMVASTATIN 20 MG TAB PO SCH (19:26)
[2022-08-21] MEDS: ACETAMINOPHEN 325 MG TAB PO PRN (19:35)
[2022-08-22] MEDS ORDERED: OLANZapine 10 MG/2.1 ML SDV IM STA (02:52)
--- NOTE | 2022-08-22 02:56 | Communication Note ---
Date of Service: August 22, 2022 Notified by nursing about patient agitation and hallucination. Went to bedside and witnessed patient actively hallucinating about snakes in the corner (ap peared to be pointing at IV pole). Patient attempted to get out of bed multiple occasions and was nonredirectable. Gave Zyprexa 5 mg. Resident Activity Tracking Resident Involvement: Resident Care Provided and Puppet Maker Coverage Note Care Provided: Adult Hospital Medicine
[2022-08-22] MEDS: predniSONE 20 MG TAB PO SCH (07:46)
[2022-08-22] MEDS: FLUoxetine HCL 20 MG CAP PO SCH (07:47)
[2022-08-22] MEDS: ASPIRIN 81 MG ECTAB PO SCH (07:48)
[2022-08-22] MEDS: SACCHAROMYCES BOULARDII 250 MG CAP PO SCH ×2 (07:48→23:00)
[2022-08-22] MEDS: MULTIVITAMIN TAB PO SCH (07:48)
[2022-08-22] MEDS: POTASSIUM CITRATE 10 MEQ TAB PO SCH ×2 (07:49→23:00)
[2022-08-22] MEDS: guaiFENesin 600 MG TABCR PO SCH ×2 (07:50→23:00)
[2022-08-22] MEDS: AZITHROMYCIN 250 MG TAB PO SCH (07:50)
[2022-08-22 08:58] LABS: Basophils # (auto) 0.01 K/uL (0-0.2); Basophils % (auto) 0.1 %; Eosinophils # (auto) 0.01 K/uL (0-0.50); Eosinophils % (auto) 0.1 %; Hematocrit (blood only) 34.6 % (37.0-47.0); Hemoglobin 11.4 g/dl (12.0-16.0); Immature Granulocytes # (auto) 0.05 K/uL (0.01-0.20); Immature Granulocytes % (auto) 0.5 %; Lymphocytes # (auto) 0.99 K/uL (1.2-3.4); Lymphocytes % (auto) 10.9 %; Mean Corpuscular Hemoglobin 27.7 pg (25.0-34.0); Mean Corpuscular Hgb Conc 32.9 g/dL (32.0-36.0); Mean Corpuscular Volume 84.2 fL (80.0-100.0); Mean Platelet Volume 10.4 fL (9.4-12.4); Monocytes # (auto) 0.98 K/uL (0.11-0.59); Monocytes % (auto) 10.7 %; Neutrophils # (auto) 7.08 K/uL (1.40-6.50); Neutrophils % (auto) 77.7 %; Platelet Count 244 K/uL (130-400); RDW Coefficient of Variation 13.6 % (11.5-14.5); RDW Standard Deviation 42.2 fL (36.4-46.3); Red Blood Count 4.11 M/uL (4.20-5.40); White Blood Count 9.12 K/ul (4.8-10.8)
[2022-08-22 10:09] LABS: Albumin Level 4.1 gm/dl (3.4-5.0); BUN Creatinine Ratio 21.1 (10-20); Calcium 10.2 mg/dl (8.6-10.3); Creatinine Clr Calc Pharmacy 41.1 ml/min; Est GFR (African American) 57.5 ml/min; Est GFR (Non-African American) 49.6 ml/min; Magnesium 2.3 mg/dl (1.7-2.4); Phosphorus 1.9 mg/dl (2.5-4.9); Potassium 3.7 mmol/L (3.5-5.1)
--- NOTE | 2022-08-22 13:10 | Hospitalist Progress Note ---
Date of Service August 22, 2022 Assessment & Plan (1) LLL pneumonia: Plan: acute pneumonia with systemic complications Left lower lobe pneumonia with acute hypoxic resppiratory failrue-consider CAP Cefepime 2 g IV every 12 hours,Azithromycin 500 mg IV daily, changed to azithromycin po Albuterol HFA 2 puffs 4 times daily as needed Guaifenesin extended release 600 mg p.o. twice daily Methylprednisolone 20 mg IV every 8 hours, taper to po prednisone, reduce dose to 20 mg (2) Depression: Plan: chronic unclear if unstable (3) Major neurocognitive disorder: Plan: chronic progressive moderate risk Short-term memory loss/major cognitive disorder/unsatisfactory living conditions/poor personal hygiene/at risk for unsafe behavior- Noted his issues in the outpatient setting Patient has had maximum of 80 hours and home health, and is still needing further assistance She should be considered for a SNF (4) Unsatisfactory living conditions: (5) GERD without esophagitis: (6) Vitamin D deficiency: Plan DVT prophylaxis- SCDs, Lovenox subcu Admission and Anticipated Discharge Date Admission Date: August 19, 2022 Subjective Patient is pleasant and conversant she is oriented x2 very clear documentation she is unable to care for herself at home however she is very stable and doing well at the present time Physical Exam Physical Exam: Awake alert appropriate casual conversation but only oriented x2 Lung exam shows likely changes of COPD no focal deficits wheezes or air loss Cardiac exam is regular Results & Data Results & Data Vital Signs (Past 12 Hours) Vital Signs Temp Pulse Resp BP Pulse Ox O2 Del Method 08/22/22 11:38 97.5 F L 72 16 136/76 99 Room Air 08/22/22 07:27 97.5 F L 79 16 148/66 H 94 Room Air PG Care Time/CCT Total # of Minutes Spent Total Time Spent with Patient: Total time spent is greater than 50% in coordination of care (as documented) at patient's floor/unit and/or counseling patient: Coding Level of Care Code 65778 SUB INP/OBS CARE 2/35MIN Diagnoses LLL pneumonia J18.9 Pneumonia type: due to unspecified organism Depression F32.9 Major neurocognitive disorder F01.50 Unsatisfactory living conditions Z59.1 GERD without esophagitis K21.9 Vitamin D deficiency E55.9 (1) LLL pneumonia Pneumonia type: due to unspecified organism Qualified Code(s): J18.9 - Pneumonia, unspecified organism
[2022-08-22] MEDS: SIMVASTATIN 20 MG TAB PO SCH (23:00)
[2022-08-22] MEDS: ENOXAPARIN INJ 40 MG/0.4 ML SYR SQ SCH (23:00)
[2022-08-23] MEDS: FLUoxetine HCL 20 MG CAP PO SCH (09:16)
[2022-08-23] MEDS: predniSONE 20 MG TAB PO SCH (09:16)
[2022-08-23] MEDS: SACCHAROMYCES BOULARDII 250 MG CAP PO SCH ×2 (09:16→20:40)
[2022-08-23] MEDS: ASPIRIN 81 MG ECTAB PO SCH (09:16)
[2022-08-23] MEDS: AZITHROMYCIN 250 MG TAB PO SCH (09:17)
[2022-08-23] MEDS: POTASSIUM CITRATE 10 MEQ TAB PO SCH ×2 (09:17→20:41)
[2022-08-23] MEDS: guaiFENesin 600 MG TABCR PO SCH ×2 (09:17→20:41)
[2022-08-23] MEDS: MULTIVITAMIN TAB PO SCH (09:36)
[2022-08-23] MEDS: ACETAMINOPHEN 325 MG TAB PO PRN (15:31)
--- NOTE | 2022-08-23 18:02 | Hospitalist Progress Note ---
Date of Service August 23, 2022 Assessment & Plan (1) LLL pneumonia: Plan: acute pneumonia with systemic complications Left lower lobe pneumonia with acute hypoxic resppiratory failrue-consider CAP Cefepime 2 g IV every 12 hours,Azithromycin 500 mg IV daily, changed to azithromycin po Albuterol HFA 2 puffs 4 times daily as needed Guaifenesin extended release 600 mg p.o. twice daily Methylprednisolone 20 mg IV every 8 hours, taper to po prednisone, reduce dose to 10 mg (2) Depression: Plan: chronic unclear if unstable (3) Major neurocognitive disorder: Plan: chronic progressive moderate risk Short-term memory loss/major cognitive disorder/unsatisfactory living conditions/poor personal hygiene/at risk for unsafe behavior- Noted his issues in the outpatient setting Patient has had maximum of 80 hours and home health, and is still needing further assistance She should be considered for a SNF (4) Unsatisfactory living conditions: (5) GERD without esophagitis: (6) Vitamin D deficiency: Plan DVT prophylaxis- SCDs, Lovenox subcu Admission and Anticipated Discharge Date Admission Date: August 19, 2022 Subjective Patient is pleasant and conversant she is oriented x2 very clear documentation she is unable to care for herself at home however she is very stable and doing well at the present time no new changes 08/23/22 Physical Exam Physical Exam: Awake alert appropriate casual conversation but only oriented x2 Lung exam shows likely changes of COPD no focal deficits wheezes or air loss Cardiac exam is regular Results & Data Results & Data Vital Signs (Past 12 Hours) Vital Signs Temp Pulse Resp BP BP Pulse Ox O2 Del Method 08/23/22 15:28 98.2 F 73 18 107/64 97 Room Air 08/23/22 11:31 98.2 F 96 H 18 107/67 96 Room Air 08/23/22 07:59 Room Air PG Care Time/CCT Total # of Minutes Spent Total Time Spent with Patient: Total time spent is greater than 50% in coordination of care (as documented) at patient's floor/unit and/or counseling patient: Coding Level of Care Code 76310 SUB INP/OBS CARE 1/25MIN Diagnoses LLL pneumonia J18.9 Pneumonia type: due to unspecified organism Depression F32.9 Major neurocognitive disorder F01.50 Unsatisfactory living conditions Z59.1 GERD without esophagitis K21.9 Vitamin D deficiency E55.9 (1) LLL pneumonia Pneumonia type: due to unspecified organism Qualified Code(s): J18.9 - Pneumonia, unspecified organism
[2022-08-23] MEDS: ENOXAPARIN INJ 40 MG/0.4 ML SYR SQ SCH (20:38)
[2022-08-23] MEDS: SIMVASTATIN 20 MG TAB PO SCH (20:41)
[2022-08-24] MEDS: AZITHROMYCIN 250 MG TAB PO SCH (08:58)
[2022-08-24] MEDS: ASPIRIN 81 MG ECTAB PO SCH (08:58)
[2022-08-24] MEDS: guaiFENesin 600 MG TABCR PO SCH ×2 (08:59→20:17)
[2022-08-24] MEDS: FLUoxetine HCL 20 MG CAP PO SCH (08:59)
[2022-08-24] MEDS: MULTIVITAMIN TAB PO SCH (08:59)
[2022-08-24] MEDS: predniSONE 10 MG TABLET PO SCH (09:00)
[2022-08-24] MEDS: POTASSIUM CITRATE 10 MEQ TAB PO SCH ×2 (09:00→20:17)
[2022-08-24] MEDS: SACCHAROMYCES BOULARDII 250 MG CAP PO SCH ×2 (09:00→20:16)
--- NOTE | 2022-08-24 19:47 | Hospitalist Progress Note ---
Date of Service August 24, 2022 Assessment & Plan (1) LLL pneumonia: Plan: acute pneumonia with systemic complications Left lower lobe pneumonia with acute hypoxic resppiratory failrue-consider CAP Cefepime 2 g IV every 12 hours,Azithromycin 500 mg IV daily, changed to azithromycin po Albuterol HFA 2 puffs 4 times daily as needed Guaifenesin extended release 600 mg p.o. twice daily Methylprednisolone 20 mg IV every 8 hours, taper to po prednisone, reduce dose to 10 mg (2) Depression: Plan: chronic unclear if unstable (3) Major neurocognitive disorder: Plan: chronic progressive moderate risk Short-term memory loss/major cognitive disorder/unsatisfactory living conditions/poor personal hygiene/at risk for unsafe behavior- Noted his issues in the outpatient setting Patient has had maximum of 80 hours and home health, and is still needing further assistance She should be considered for a SNF (4) Unsatisfactory living conditions: (5) GERD without esophagitis: (6) Vitamin D deficiency: Plan DVT prophylaxis- SCDs, Lovenox subcu Admission and Anticipated Discharge Date Admission Date: August 19, 2022 Subjective Patient is pleasant and conversant she is oriented x2 very clear documentation she is unable to care for herself at home however she is very stable and doing well at the present time no new changes 08/24/22 Physical Exam Physical Exam: Awake alert appropriate casual conversation but only oriented x2 Lung exam shows likely changes of COPD no focal deficits wheezes or air loss Cardiac exam is regular Results & Data Results & Data Vital Signs (Past 12 Hours) Vital Signs Temp Pulse Resp BP Pulse Ox O2 Del Method 08/24/22 15:20 97.5 F L 70 16 122/70 98 Room Air PG Care Time/CCT Total # of Minutes Spent Total Time Spent with Patient: Total time spent is greater than 50% in coordination of care (as documented) at patient's floor/unit and/or counseling patient: Coding Level of Care Code 36283 SUB INP/OBS CARE 06/01MIN Diagnoses LLL pneumonia J18.9 Pneumonia type: due to unspecified organism Depression F32.9 Major neurocognitive disorder F01.50 Unsatisfactory living conditions Z59.1 GERD without esophagitis K21.9 Vitamin D deficiency E55.9 (1) LLL pneumonia Pneumonia type: due to unspecified organism Qualified Code(s): J18.9 - Pneumonia, unspecified organism
[2022-08-24] MEDS: SIMVASTATIN 20 MG TAB PO SCH (20:16)
[2022-08-24] MEDS: ENOXAPARIN INJ 40 MG/0.4 ML SYR SQ SCH (20:16)
[2022-08-25 07:32] LABS: Creatinine Clr Calc Pharmacy 42.7 ml/min; Est GFR (African American) 60.2 ml/min; Est GFR (Non-African American) 51.9 ml/min
[2022-08-25] MEDS: ASPIRIN 81 MG ECTAB PO SCH (08:04)
[2022-08-25] MEDS: POTASSIUM CITRATE 10 MEQ TAB PO SCH ×2 (08:04→20:07)
[2022-08-25] MEDS: AZITHROMYCIN 250 MG TAB PO SCH (08:04)
[2022-08-25] MEDS: predniSONE 10 MG TABLET PO SCH (08:05)
[2022-08-25] MEDS: MULTIVITAMIN TAB PO SCH (08:05)
[2022-08-25] MEDS: FLUoxetine HCL 20 MG CAP PO SCH (08:05)
[2022-08-25] MEDS: guaiFENesin 600 MG TABCR PO SCH ×2 (08:05→20:08)
[2022-08-25] MEDS: SACCHAROMYCES BOULARDII 250 MG CAP PO SCH ×2 (08:06→20:08)
[2022-08-25 17:43] LABS: Basophils # (auto) 0.01 K/uL (0-0.2); Basophils % (auto) 0.2 %; Eosinophils # (auto) 0.02 K/uL (0-0.50); Eosinophils % (auto) 0.3 %; Hematocrit (blood only) 37.5 % (37.0-47.0); Immature Granulocytes # (auto) 0.03 K/uL (0.01-0.20); Immature Granulocytes % (auto) 0.5 %; Lymphocytes # (auto) 0.57 K/uL (1.2-3.4); Mean Corpuscular Hemoglobin 27.6 pg (25.0-34.0); Mean Corpuscular Volume 86.4 fL (80.0-100.0); Mean Platelet Volume 9.6 fL (9.4-12.4); Monocytes # (auto) 0.43 K/uL (0.11-0.59); Monocytes % (auto) 6.8 %; Neutrophils # (auto) 5.25 K/uL (1.40-6.50); Neutrophils % (auto) 83.2 %; Platelet Count 355 K/uL (130-400); RDW Coefficient of Variation 13.4 % (11.5-14.5); RDW Standard Deviation 41.8 fL (36.4-46.3); Red Blood Count 4.34 M/uL (4.20-5.40); White Blood Count 6.31 K/ul (4.8-10.8)
--- NOTE | 2022-08-25 18:07 | Hospitalist Progress Note ---
Date of Service August 25, 2022 Assessment & Plan (1) LLL pneumonia: Plan: acute pneumonia with systemic complications Left lower lobe pneumonia with acute hypoxic resppiratory failrue-consider CAP Cefepime 2 g IV every 12 hours,Azithromycin 500 mg IV daily, changed to azithromycin po Albuterol HFA 2 puffs 4 times daily as needed Guaifenesin extended release 600 mg p.o. twice daily Methylprednisolone 20 mg IV every 8 hours, taper to po prednisone, reduce dose to 10 mg (2) Depression: Plan: chronic unclear if unstable (3) Major neurocognitive disorder: Plan: chronic progressive moderate risk Short-term memory loss/major cognitive disorder/unsatisfactory living conditions/poor personal hygiene/at risk for unsafe behavior- Noted his issues in the outpatient setting Patient has had maximum of 80 hours and home health, and is still needing further assistance She should be considered for a SNF Agree with previous provider. Likely would need dementia unit SNF. (4) Unsatisfactory living conditions: (5) GERD without esophagitis: (6) Vitamin D deficiency: Plan DVT prophylaxis- SCDs, Lovenox subcu Admission and Anticipated Discharge Date Admission Date: August 19, 2022 Subjective 76 yo female is pleasantly demented. Review of Systems Review of Systems: All systems reviewed & are unremarkable except as noted in HPI & below Physical Exam Physical Exam: Awake alert appropriate casual conversation but only oriented x2 Lung exam shows likely changes of COPD no focal deficits wheezes or air loss Cardiac exam is regular Results & Data Results & Data Vital Signs (Past 12 Hours) Vital Signs Temp Pulse Resp BP Pulse Ox O2 Del Method 08/25/22 15:32 37.0 C 78 16 115/66 96 Room Air 08/25/22 07:32 36.9 C 77 14 128/73 95 Room Air PG Care Time/CCT Total # of Minutes Spent Total Time Spent with Patient: Total time spent is greater than 50% in coordination of care (as documented) at patient's floor/unit and/or counseling patient: Coding Level of Care Code 21699 SUB INP/OBS CARE 2/35MIN Diagnoses LLL pneumonia J18.9 Pneumonia type: due to unspecified organism Depression F32.9 Major neurocognitive disorder F01.50 Unsatisfactory living conditions Z59.1 GERD without esophagitis K21.9 Vitamin D deficiency E55.9 (1) LLL pneumonia Pneumonia type: due to unspecified organism Qualified Code(s): J18.9 - Pneumonia, unspecified organism
[2022-08-25] MEDS: ENOXAPARIN INJ 40 MG/0.4 ML SYR SQ SCH (20:07)
[2022-08-25] MEDS: SIMVASTATIN 20 MG TAB PO SCH (20:08)
[2022-08-26] MEDS: ACETAMINOPHEN 325 MG TAB PO PRN ×2 (03:26→19:35)
[2022-08-26] MEDS: AZITHROMYCIN 250 MG TAB PO SCH ×2 (08:00→08:33)
[2022-08-26] MEDS: ASPIRIN 81 MG ECTAB PO SCH ×2 (08:00→08:33)
[2022-08-26] MEDS: POTASSIUM CITRATE 10 MEQ TAB PO SCH ×3 (08:01→19:36)
[2022-08-26] MEDS: MULTIVITAMIN TAB PO SCH ×2 (08:01→08:33)
[2022-08-26] MEDS: guaiFENesin 600 MG TABCR PO SCH ×3 (08:01→19:36)
[2022-08-26] MEDS: FLUoxetine HCL 20 MG CAP PO SCH ×2 (08:01→08:33)
[2022-08-26] MEDS: SACCHAROMYCES BOULARDII 250 MG CAP PO SCH ×3 (08:02→19:35)
[2022-08-26] MEDS: predniSONE 10 MG TABLET PO SCH ×2 (08:02→08:33)
[2022-08-26] MEDS: SIMVASTATIN 20 MG TAB PO SCH (19:36)
[2022-08-26] MEDS: ENOXAPARIN INJ 40 MG/0.4 ML SYR SQ SCH (19:36)
--- NOTE | 2022-08-26 22:44 | Hospitalist Progress Note ---
Date of Service August 26, 2022 Assessment & Plan (1) LLL pneumonia: Plan: acute pneumonia with systemic complications Left lower lobe pneumonia with acute hypoxic resppiratory failrue-consider CAP Cefepime 2 g IV every 12 hours,Azithromycin 500 mg IV daily, changed to azithromycin po Albuterol HFA 2 puffs 4 times daily as needed Guaifenesin extended release 600 mg p.o. twice daily Methylprednisolone 20 mg IV every 8 hours, taper to po prednisone, reduce dose to 10 mg Updated kerri on phone on 08/26 reviewed blood work. continue azithromycin. Patient has advanced vascular dementia with delirium likely attributed to her dementia, pnuemonia, and hospital stay. (2) Depression: Plan: chronic unclear if unstable (3) Major neurocognitive disorder: Plan: chronic progressive moderate risk Short-term memory loss/major cognitive disorder/unsatisfactory living conditions/poor personal hygiene/at risk for unsafe behavior- Noted his issues in the outpatient setting Patient has had maximum of 80 hours and home health, and is still needing further assistance She should be considered for a SNF Agree with previous provider. Likely would need dementia unit SNF. Personal care facility will accept patient on Monday. Will monitor. (4) Unsatisfactory living conditions: (5) GERD without esophagitis: (6) Vitamin D deficiency: Plan DVT prophylaxis- SCDs, Lovenox subcu Admission and Anticipated Discharge Date Admission Date: August 19, 2022 Subjective Patient is a poor historian. Updated kerri on phone Review of Systems Review of Systems: All systems reviewed & are unremarkable except as noted in HPI & below Physical Exam Physical Exam: Awake alert appropriate casual conversation but only oriented x2 Lung exam shows likely changes of COPD no focal deficits wheezes or air loss Cardiac exam is regular Results & Data Results & Data Vital Signs (Past 12 Hours) Vital Signs Temp Pulse Resp BP Pulse Ox O2 Del Method 08/26/22 20:18 36.7 C 80 16 125/73 98 Room Air 08/26/22 19:50 Room Air 08/26/22 16:29 36.8 C 86 16 134/73 96 Room Air PG Care Time/CCT Total # of Minutes Spent Total Time Spent with Patient: Total time spent is greater than 50% in coordination of care (as documented) at patient's floor/unit and/or counseling patient: Coding Level of Care Code 97595 SUB INP/OBS CARE 2/35MIN Diagnoses LLL pneumonia J18.9 Pneumonia type: due to unspecified organism Depression F32.9 Major neurocognitive disorder F01.50 Unsatisfactory living conditions Z59.1 GERD without esophagitis K21.9 Vitamin D deficiency E55.9 (1) LLL pneumonia Pneumonia type: due to unspecified organism Qualified Code(s): J18.9 - Pneumonia, unspecified organism
[2022-08-27] MEDS: MULTIVITAMIN TAB PO SCH (08:39)
[2022-08-27] MEDS: POTASSIUM CITRATE 10 MEQ TAB PO SCH ×2 (08:39→19:50)
[2022-08-27] MEDS: FLUoxetine HCL 20 MG CAP PO SCH (08:39)
[2022-08-27] MEDS: predniSONE 10 MG TABLET PO SCH (08:39)
[2022-08-27] MEDS: ASPIRIN 81 MG ECTAB PO SCH (08:39)
[2022-08-27] MEDS: SACCHAROMYCES BOULARDII 250 MG CAP PO SCH ×2 (08:39→19:50)
[2022-08-27] MEDS: guaiFENesin 600 MG TABCR PO SCH ×2 (08:39→19:50)
[2022-08-27 10:23] LABS: Hematocrit (blood only) 35.4 % (37.0-47.0); Hemoglobin 11.4 g/dl (12.0-16.0); Mean Corpuscular Hemoglobin 27.6 pg (25.0-34.0); Mean Corpuscular Hgb Conc 32.2 g/dL (32.0-36.0); Mean Corpuscular Volume 85.7 fL (80.0-100.0); Mean Platelet Volume 9.5 fL (9.4-12.4); Platelet Count 303 K/uL (130-400); RDW Coefficient of Variation 13.7 % (11.5-14.5); RDW Standard Deviation 42.7 fL (36.4-46.3); Red Blood Count 4.13 M/uL (4.20-5.40); White Blood Count 3.73 K/ul (4.8-10.8)
[2022-08-27 10:43] LABS: BUN Creatinine Ratio 27.7 (10-20); Calcium 9.4 mg/dl (8.6-10.3); Est GFR (African American) 55.6 ml/min; Potassium 3.8 mmol/L (3.5-5.1)
--- NOTE | 2022-08-27 18:52 | XRay Report ---
KUB HISTORY: Acute generalized abdominal pain with constipation constipation COMPARISON: None. FINDINGS: Moderate colonic fecal retention. Cholecystectomy. No renal calculi identified. No renal c alculi. No ureteral calculi. No pneumoperitoneum or pneumatosis. Osteoarthritis of the hips. No fract ure. IMPRESSION: 1. Nonobstructive bowel gas pattern. 2. Moderate colonic fecal retention. 3. Cholecystectomy. ACT 112: Negative or not required by law. The above report was generated using voice recognition software. It may contain grammatical, syntax o r spelling errors. Electronically signed by: Enrique Lilly M.D. 08/27/2022 6:51 PM
[2022-08-27] MEDS: ACETAMINOPHEN 325 MG TAB PO PRN (19:49)
[2022-08-27] MEDS: SIMVASTATIN 20 MG TAB PO SCH (19:50)
[2022-08-27] MEDS: ENOXAPARIN INJ 40 MG/0.4 ML SYR SQ SCH (19:50)
--- NOTE | 2022-08-27 20:42 | Hospitalist Progress Note ---
Date of Service August 27, 2022 Assessment & Plan (1) LLL pneumonia: Plan: acute pneumonia with systemic complications Left lower lobe pneumonia with acute hypoxic resppiratory failrue-consider CAP Cefepime 2 g IV every 12 hours,Azithromycin 500 mg IV daily, changed to azithromycin po Albuterol HFA 2 puffs 4 times daily as needed Guaifenesin extended release 600 mg p.o. twice daily Methylprednisolone 20 mg IV every 8 hours, taper to po prednisone, reduce dose to 10 mg Updated sons on phone on 08/26 reviewed blood work. completed azithromycin on 08/27 Patient has advanced vascular dementia with delirium likely attributed to her dementia, pnuemonia, and hospital stay. (2) Depression: Plan: chronic unclear if unstable (3) Major neurocognitive disorder: Plan: chronic progressive moderate risk Short-term memory loss/major cognitive disorder/unsatisfactory living conditions/poor personal hygiene/at risk for unsafe behavior- Noted his issues in the outpatient setting Patient has had maximum of 80 hours and home health, and is still needing further assistance She should be considered for a SNF Agree with previous provider. Likely would need dementia unit SNF. Personal care facility will accept patient on Monday. Will monitor. (4) Unsatisfactory living conditions: (5) GERD without esophagitis: (6) Vitamin D deficiency: Plan DVT prophylaxis- SCDs, Lovenox subcu Admission and Anticipated Discharge Date Admission Date: August 19, 2022 Subjective 76 yo female is a poor historian. No new symptoms. Review of Systems Review of Systems: All systems reviewed & are unremarkable except as noted in HPI & below Physical Exam Physical Exam: Awake alert appropriate casual conversation but only oriented x2 Lung exam shows likely changes of COPD no focal deficits wheezes or air loss Cardiac exam is regular Results & Data Results & Data Vital Signs (Past 12 Hours) Vital Signs Temp Pulse Resp BP BP Pulse Ox O2 Del Method 08/27/22 20:21 36.8 C 75 16 143/77 H 98 Room Air 08/27/22 14:55 37.3 C 79 16 111/71 96 Room Air 08/27/22 09:34 37.3 C 86 16 125/71 97 Room Air PG Care Time/CCT Total # of Minutes Spent Total Time Spent with Patient: Total time spent is greater than 50% in coordination of care (as documented) at patient's floor/unit and/or counseling patient: Coding Level of Care Code 55877 SUB INP/OBS CARE MIN Diagnoses LLL pneumonia J18.9 Pneumonia type: due to unspecified organism Depression F32.9 Major neurocognitive disorder F01.50 Unsatisfactory living conditions Z59.1 GERD without esophagitis K21.9 Vitamin D deficiency E55.9 (1) LLL pneumonia Pneumonia type: due to unspecified organism Qualified Code(s): J18.9 - Pneumonia, unspecified organism
[2022-08-28] MEDS: POTASSIUM CITRATE 10 MEQ TAB PO SCH ×2 (08:07→19:23)
[2022-08-28] MEDS: predniSONE 10 MG TABLET PO SCH (08:07)
[2022-08-28] MEDS: FLUoxetine HCL 20 MG CAP PO SCH (08:07)
[2022-08-28] MEDS: ASPIRIN 81 MG ECTAB PO SCH (08:07)
[2022-08-28] MEDS: SACCHAROMYCES BOULARDII 250 MG CAP PO SCH ×2 (08:07→19:23)
[2022-08-28] MEDS: guaiFENesin 600 MG TABCR PO SCH ×2 (08:07→19:23)
[2022-08-28] MEDS: MULTIVITAMIN TAB PO SCH (08:07)
[2022-08-28 08:14] LABS: Creatinine Clr Calc Pharmacy 42.3 ml/min; Est GFR (African American) 59.5 ml/min; Est GFR (Non-African American) 51.3 ml/min
[2022-08-28] MEDS: ENOXAPARIN INJ 40 MG/0.4 ML SYR SQ SCH (19:22)
[2022-08-28] MEDS: SIMVASTATIN 20 MG TAB PO SCH (19:24)
[2022-08-28] MEDS: ACETAMINOPHEN 325 MG TAB PO PRN (20:25)
--- NOTE | 2022-08-28 21:20 | Hospitalist Progress Note ---
Date of Service August 28, 2022 Assessment & Plan (1) LLL pneumonia: Plan: acute pneumonia with systemic complications Left lower lobe pneumonia with acute hypoxic resppiratory failrue-consider CAP Cefepime 2 g IV every 12 hours,Azithromycin 500 mg IV daily, changed to azithromycin po Albuterol HFA 2 puffs 4 times daily as needed Guaifenesin extended release 600 mg p.o. twice daily Methylprednisolone 20 mg IV every 8 hours, taper to po prednisone, reduce dose to 10 mg Updated sons on phone on 08/26 reviewed blood work. completed azithromycin on 08/27 Patient has advanced vascular dementia with delirium likely attributed to her dementia, pnuemonia, and hospital stay. (2) Depression: Plan: chronic unclear if unstable (3) Major neurocognitive disorder: Plan: chronic progressive moderate risk Short-term memory loss/major cognitive disorder/unsatisfactory living conditions/poor personal hygiene/at risk for unsafe behavior- Noted his issues in the outpatient setting Patient has had maximum of 80 hours and home health, and is still needing further assistance She should be considered for a SNF Agree with previous provider. Likely would need dementia unit SNF. Personal care facility will accept patient on Monday. Will monitor. (4) Unsatisfactory living conditions: (5) GERD without esophagitis: (6) Vitamin D deficiency: Plan DVT prophylaxis- SCDs, Lovenox subcu Admission and Anticipated Discharge Date Admission Date: August 19, 2022 Subjective Patient appears comfortable. Poor historian Review of Systems Review of Systems: All systems reviewed & are unremarkable except as noted in HPI & below Physical Exam Physical Exam: Awake alert appropriate casual conversation but only oriented x2 Lung exam shows likely changes of COPD no focal deficits wheezes or air loss Cardiac exam is regular Results & Data Results & Data Vital Signs (Past 12 Hours) Vital Signs Temp Pulse Resp BP Pulse Ox O2 Del Method 08/28/22 20:05 36.7 C 72 16 146/73 H 97 Room Air 08/28/22 15:58 37.1 C 78 16 126/76 98 Room Air PG Care Time/CCT Total # of Minutes Spent Total Time Spent with Patient: Total time spent is greater than 50% in coordination of care (as documented) at patient's floor/unit and/or counseling patient: Coding Level of Care Code 72597 SUB INP/OBS CARE 2/35MIN Diagnoses LLL pneumonia J18.9 Pneumonia type: due to unspecified organism Depression F32.9 Major neurocognitive disorder F01.50 Unsatisfactory living conditions Z59.1 GERD without esophagitis K21.9 Vitamin D deficiency E55.9 (1) LLL pneumonia Pneumonia type: due to unspecified organism Qualified Code(s): J18.9 - Pneumonia, unspecified organism
[2022-08-29] MEDS: POTASSIUM CITRATE 10 MEQ TAB PO SCH (08:18)
[2022-08-29] MEDS: ASPIRIN 81 MG ECTAB PO SCH (08:18)
[2022-08-29] MEDS: SACCHAROMYCES BOULARDII 250 MG CAP PO SCH (08:18)
[2022-08-29] MEDS: guaiFENesin 600 MG TABCR PO SCH (08:18)
[2022-08-29] MEDS: MULTIVITAMIN TAB PO SCH (08:19)
[2022-08-29] MEDS: predniSONE 10 MG TABLET PO SCH (08:19)
[2022-08-29] MEDS: FLUoxetine HCL 20 MG CAP PO SCH (08:19)
--- NOTE | 2022-09-08 16:48 | Discharge Summary ---
Date of Service August 29, 2022 Admission HPI Per Admitting Provider The patient is a 76-year-old female with a past medical history including unsatisfactory living conditions, poor personal hygiene, high risk for unsafe behavior, progressive major neurocognitive disorder, anxiety, asthma, depression, right lumbar radiculitis, CKD, chronic cerebral ischemia, GERD, vitamin D deficiency and short-term memory loss. The patient presents to the emergency department with symptoms as noted above. There have been attempts in the outpatient setting to maximize patient's assistance within the home care, however, the max has been 80 hours/week, and the patient needs more than that. Principal Diagnosis Left Lower Lobe pneumonia Discharge Exam Awake alert appropriate casual conversation but only oriented x2 Lung exam shows likely changes of COPD no focal deficits wheezes or air loss Cardiac exam is regular Discharge Data Allergies Allergy/AdvReac Type Severity Reaction Status Date / Time Bactrim Allergy Severe SHORTNESS Verified 08/11/16 07:44 OF BREATH blue dye Allergy Severe UNKNOWN Verified 06/27/22 08:11 duloxetine Allergy Severe UNKNOWN Verified 06/27/22 08:11 erythromycin base Allergy Severe UNKNOWN Verified 06/27/22 08:11 naproxen Allergy Severe Verified 06/27/22 08:11 quetiapine Allergy Severe UNKNOWN Verified 06/27/22 08:11 shellfish derived Allergy Severe UNKNOWN Verified 06/27/22 08:11 Sulfa (Sulfonamide Allergy Severe Shortness Verified 06/27/22 08:11 Antibiotics) of Breath sulfamethoxazole Allergy Severe SHORTNESS Verified 06/27/22 08:11 OF BREATH trimethoprim Allergy Severe SHORTNESS Verified 06/27/22 08:11 OF BREATH venlafaxine Allergy Severe UNKNOWN Verified 06/27/22 08:11 zolpidem Allergy Severe UNKNOWN Verified 06/27/22 08:11 Penicillins Allergy Mild Verified 06/27/22 08:11 bee venom protein (honey bee) Allergy Unknown ANAPHYLAXIS Verified 06/27/22 08:11 hornet venom Allergy Unknown ANAPHYLAXIS Verified 06/27/22 08:11 Iodinated Contrast Media Allergy Unknown UNKNOWN Verified 06/27/22 08:11 NSAIDS (Non-Steroidal Allergy Unknown UNKNOWN Verified 06/27/22 08:11 Anti-Inflamma Consultations 08/19/22 19:13 ED Decision to Admit Stat Ordered Studies 08/19/22 15:45 CT head/brain wo con Stat Hospital Course (1) LLL pneumonia: acute pneumonia with systemic complications Left lower lobe pneumonia with acute hypoxic resppiratory failrue-consider CAP Cefepime 2 g IV every 12 hours,Azithromycin 500 mg IV daily, changed to azithromycin po Albuterol HFA 2 puffs 4 times daily as needed Guaifenesin extended release 600 mg p.o. twice daily Methylprednisolone 20 mg IV every 8 hours, taper to po prednisone, reduce dose to 10 mg Updated sons on phone on 08/26 reviewed blood work. completed azithromycin on 08/27 Patient has advanced vascular dementia with delirium likely attributed to her dementia, pnuemonia, and hospital stay. Patient was discharged on 08/29 (2) Depression: chronic unclear if unstable (3) Major neurocognitive disorder: chronic progressive moderate risk Short-term memory loss/major cognitive disorder/unsatisfactory living conditions/poor personal hygiene/at risk for unsafe behavior- Noted his issues in the outpatient setting Patient has had maximum of 80 hours and home health, and is still needing further assistance Patient discharged as noted below to [facility]. (4) Unsatisfactory living conditions: (5) GERD without esophagitis: (6) Vitamin D deficiency: Plan DVT prophylaxis- SCDs, Lovenox subcu Total Time Total Time Spent Total Time Spent (In Minutes): 32 Discharge Plan Discharge Items Patient Disposition: Personal Skilled Nursing Reason For Visit: PNEUMONIA, ALTERED MENTAL STATE Discharge Diagnosis: Pneumonia Activity: Resume your previous activity Non-emergency contact: Primary Care Provider Call non-emergency contact if: you have any medication questions Follow-up/Referrals: Yamil Zimmerman MD [Primary Care Provider] - Diet: Regular Addtl Attending Provider Instructions: followup with PCP in 1-2 weeks. Pending Studies at Discharge: No Stand-Alone Forms: [employer], Smoking Cessation Skilled Items Patient informed of condition?: No DNR: No Discharge Level of Care: Other Communicable Disease: No Discharge Prognosis: Stable Lines: None Urinary Catheter: No Medications and DC Order Prescriptions: New potassium citrate 10 mEq (1,080 mg) Tablet Extended Release 10 meq PO BID Qty: 60 0RF prednisone 1 mg tablet 1 mg PO DAILY Qty: 30 0RF Rx Instructions: Take 5 tabs once daily for 2 days then 4 tabs for 2 days then 3 tabs for 2 days 2 tabs for 2 days 1 tab for 2 days Continued multivitamin Tablet 1 tab PO DAILY Calma Capsules 0 cap PO UD aspirin 81 mg tablet,delayed release (DR/EC) 81 mg PO DAILY Qty: 90 1RF acetaminophen 650 mg Tablet Extended Release 650 mg PO Q8H PRN (Reason: Pain) Qty: 30 0RF simvastatin 20 mg tablet 20 mg PO DAILY Qty: 90 3RF fluoxetine 20 mg capsule 40 mg PO DAILY 30 Days Qty: 60 4RF Saccharomyces boulardii 250 mg capsule 250 mg PO BID Qty: 20 0RF Rx Instructions: swallow whole Discontinued potassium citrate 15 mEq tablet extended release 15 meq PO BID Qty: 60 0RF diphenhydramine HCl [Benadryl] 25 mg Capsule 25 mg PO HS PRN (Reason: .) Discharge Orders: Discharge Order (Routine); Ordered 08/29/22 Ordered By: David Arauz Admission Data Admit Date/Time: 08/19/22 20:13 Attending Provider: David Arauz Admit Provider: Manny Benoit Primary Care Provider: Yamil Zimmerman V. Other Providers: Manny Benoit Other Interventions: Discharge Summary Assessment (RN) Last Done: 08/29/22 12:15 Coding Level of Care Code 07404 INP/OBS DISCH >30 MIN Diagnoses LLL pneumonia J18.9 Pneumonia type: due to unspecified organism Depression F32.9 Major neurocognitive disorder F01.50 Unsatisfactory living conditions Z59.1 GERD without esophagitis K21.9 Vitamin D deficiency E55.9
== END 2022-08-29 13:33 | disposition home or self-care (01) | DRG 193 ==
LOC: ED 15:24 → EDINP 20:13 → SUATTDRO 20:13 → 2N 22:08 → 3N 08-23 23:22

== ENCOUNTER 2022-09-13 17:30 | Inpatient (IN) ==
--- NOTE | 2022-09-13 18:04 | Emergency Department Note ---
Impression & Plan Short-term memory loss, Fall, Contusion of face, Facial droop ED Provider Note Provider: Blair Flower MD DATE OF SERVICE: 09/13/2022 CHIEF COMPLAINT: Fall, facial contusion, facial droop, vision change HISTORY OF PRESENT ILLNESS: Patient is a 76-year-old female history of vascular dementia on low-dose aspirin presenting here with caregiver referred from outpatient clinic. Patient evidently sometime between 5 PM and Monday and 7 AM on Monday fell at home. He is unable to give me details of what happened. Caregivers state that she was found on for Monday and assisted up. Developed b ruising to the left face as well as today some bruising to her left upper arm. Has been complaining of little pain in the right hip region. States that her right vision is a bit off towards the left. Not eating so well but denies any URI symptoms or fever according to patient or caregiver. Seen in the outpatient clinic referred here today as she has left-sided facial droop and may be a bit of left weakness by report. Has had difficulty ambulating. PAST MEDICAL HISTORY: As noted above MEDICATIONS: Reviewed home medications includes low-dose aspirin SOCIAL HISTORY: Resides at home with caregivers during the day PHYSICAL EXAM: GENERAL: alert and oriented in no acute distress on stretcher but not a great historian to the events of the fall earlier. Head: Patient with significant healing contusion to the left face on the maxilla to the jawline to the left eye. EYES: No injection, discharge or icterus. Pupils round and reactive to light slight dilation of the left 4 mm to 3 mm on the left. EOMI. NECK: Trachea midline. Supple no significant cervical tenderness. ENT: Mucous membranes pink and moist. LUNGS: Airway patent. No retractions. Breath sounds clear with good air entry bilaterally. HEART: Regular rate and rhythm. No chest wall tenderness ABDOMEN: Soft and non-tender, without guarding or rebound. BACK: No bilateral flank tenderness. SKIN: Acyanotic, warm, dry, without rashes EXTREMITIES: Without swelling, tenderness or deformity except for some slight contusions left upper arm minimally tender but no significant bony tenderness good range of motion left upper arm. Good range of motion of the lower extremities particularly the right lower extremity involving the right knee and hip without significant joint line tenderness of the right knee. Soft compar tments of the extremities. NEUROLOGICAL: Not best short-term memory. No aphasia. No slurred speech. Left facial droop appreciated. Normal strength and tone in the extremities. Sensation to gross touch normal. No pronator drift. Ambulatory. EK bpm sinus bradycardia. No PVC or PAC. No acute ST segment elevation with some nonspecific T wave changes. QTc 392. CONTINUOUS CARDIAC MONITORING: was ordered and showed a heart rate of 50s-60s bpm in sinus bradycardia normal sinus rhythm GCS 15. Patient's laboratory studies and imaging reviewed. Differential includes Fracture, dislocation, contusion, intra-abdominal, pneumothorax, intrathoracic, intracranial, neurologic, rhabdomyolysis, as well as other pathologies. IMPRESSION/MEDICAL DECISION MAKING: Patient Monday night experienced a fall unclear etiology. Basic labs and EKG obtained. Having contusion to the left upper arm but no significant bony tenderness and doubt underlying fracture here. No significant pelvic pain and good range of motion of the lower extremities with good straight leg raise. Pelvis x-ray obtained but I doubt fracture here. Did complete a CT of the head as well as cervical spine and face given the trauma to the left side of the face with contusion. Is having some left facial droop here. Not having significant pronator drift on exam or significant focal weakness on my exam. Does report some visual change. Could possibly represent stroke precipitating the fall will be more incidental to the trauma. Given her IV contrast allergy listed in her poor memory do not feel we can proceed with CT angiograms of the head or neck. Outside the window for thrombolytics or acute intervention in any event. Soft compartments elsewhere and lower suspicion given the time course as she is suffering from rhabdomyolysis but CK and basic labs again were sent. Benign abdomen and no significant chest wall tenderness or shortness of breath appreciated low suspicion for acute intrathoracic or intra-abdominal injury. Slight anemia today slightly worse than recent at 10.3 from baseline in the 11's. However again doubt significant internal bleeding at this point. Slight hyponatremia of 131 with recent's around 135. No other significant electrolyte abnormality. No troponin elevation. No CK elevation doubt rhabdomyolysis. No evidence of LFT abnormality. Denies any URI symptoms or respiratory symptoms but was recently hospitalized for pneumonia. Slightly worsened leukopenia today. Is on aspirin 81mg. COVID-negative. X-rays per radiology without acute findings noted. CT report per radiology without evidence of acute intracranial hemorrhage, evidence of acute territorial infarct per CT or other acute abnormality with chronic small vessel disease noted. CT of the face and cervical spine per radiology report without significant acute bony injuries or fractures with some left facial contusion noted. Discussed with the patient and caregiver at bedside. Question if she could still have an underlying CVA component given the visual deficits in the left field of the right eye as well as a left facial droop. Again limitations due to history from the patient due to her underlying vascular dementia. She does have some significant ambulatory dysfunction is a fall risk. Discussed doing for further stroke work-up and she was agreeable with this. DIAGNOSIS: Fall, left facial droop and contusion, dementia DISPOSITION: Hospitalist will evaluate. Past Med/Surg History Medical History Anxiety Asthma Contusion of left forearm Depression Facial laceration Facial laceration Metabolic acidosis with normal anion gap and failure of bicarbonate regeneration Right hip pain Right lumbar radiculitis Short-term memory loss Surgical History S/P hysterectomy with oophorectomy S/P shoulder surgery S/P total knee arthroplasty Family History Mother Congestive heart failure Diabetes Heart disease Other Family history non-contributory Denies family history of Ovarian cancer Prostate cancer Myocardial infarction Breast cancer Colorectal cancer Social History Smoking Status: Never smoker Second Hand Exposure: No; Do You Dip or Chew Tobacco: No; Hx Alcohol Use: Yes Alcohol type: wine Alcohol Intake Frequency: Monthly or Less Hx Substance Use: No Preferred Language: French Communication Ability: Effective Hearing Ability: Normal Sign Installer Required: No Beliefs That Will Affect Care: None marital status: Current Living Situation: Alone current occupational status: retired Feels Safe at Home: Yes Childhood Exposure to Second-Hand Smoke: No Dental Care, Regularly: No Physical Activity Frequency: 3-4 Times per Week Seatbelt Use: always Sunscreen Use: Yes Assistive Devices: Walker Allergies Allergies Allergy/AdvReac Type Severity Reaction Status Date / Time blue dye Allergy Severe UNKNOWN Verified 09/13/22 16:43 duloxetine Allergy Severe UNKNOWN Verified 09/13/22 16:43 erythromycin base Allergy Severe UNKNOWN Verified 09/13/22 16:43 naproxen Allergy Severe Unknown Verified 09/13/22 19:12 quetiapine Allergy Severe UNKNOWN Verified 09/13/22 16:43 shellfish derived Allergy Severe UNKNOWN Verified 09/13/22 16:43 Sulfa (Sulfonamide Allergy Severe Shortness Verified 09/13/22 16:43 Antibiotics) of Breath sulfamethoxazole Allergy Severe SHORTNESS Verified 09/13/22 16:43 OF BREATH trimethoprim Allergy Severe SHORTNESS Verified 09/13/22 16:43 OF BREATH venlafaxine Allergy Severe UNKNOWN Verified 09/13/22 16:43 zolpidem Allergy Severe UNKNOWN Verified 09/13/22 16:43 Penicillins Allergy Mild Unknown Verified 09/13/22 19:12 bee venom protein (honey bee) Allergy Unknown ANAPHYLAXIS Verified 09/13/22 16:43 hornet venom Allergy Unknown ANAPHYLAXIS Verified 09/13/22 16:43 Iodinated Contrast Media Allergy Unknown UNKNOWN Verified 09/13/22 16:43 NSAIDS (Non-Steroidal Allergy Unknown UNKNOWN Verified 09/13/22 16:43 Anti-Inflamma Home Meds Home Medications Medication Instructions Recorded Confirmed multivitamin 1 tab PO DAILY 02/22/20 09/13/22 Saccharomyces boulardii 250 mg 250 mg PO DAILY 09/13/22 09/13/22 capsule fluoxetine 40 mg capsule 40 mg PO DAILY 09/13/22 09/13/22 Previous Rx's Medication Instructions Recorded acetaminophen 650 mg 650 mg PO Q8H PRN Pain #30 tabs 08/29/22 tablet,extended release aspirin 81 mg tablet,delayed 81 mg PO DAILY #90 tabs 08/29/22 release potassium citrate 10 mEq (1,080 10 meq PO BID #60 tabs 08/29/22 mg) tablet,extended release simvastatin 20 mg tablet 20 mg PO DAILY #90 tabs 08/29/22 Results & Data (ED) Vital Signs Vital Signs - 24 hr 09/13/22 17:40 09/13/22 17:58 09/13/22 17:57 Temperature 37 C Temperature Source Temporal Artery Scan Pulse Rate 66 65 67 Pulse Rate from SpO2 Sensor 63 Pulse Rhythm Regular Pulse Strength Normal Respiratory Rate 16 16 Respiratory Effort / Characteristics Non-Labored Spontaneous Respiratory Depth Normal Respiratory Pattern Regular Blood Pressure 132/74 Blood Pressure Mean 93 Blood Pressure Position Sitting Pulse Oximetry 99 99 Oxygen Delivery Method Room Air Sepsis Recent Fever Within 48 Hours No Sepsis New/Unexplained Change in Mental Status N/A Sepsis Action Taken by Nursing No Action Required 09/13/22 18:00 09/13/22 18:17 09/13/22 18:17 Temperature Temperature Source Pulse Rate 60 60 Pulse Rate from SpO2 Sensor 60 60 Pulse Rhythm Pulse Strength Respiratory Rate 17 13 Respiratory Effort / Characteristics Respiratory Depth Respiratory Pattern Blood Pressure 127/69 Blood Pressure Mean 88 Blood Pressure Position Pulse Oximetry 100 100 Oxygen Delivery Method Sepsis Recent Fever Within 48 Hours Sepsis New/Unexplained Change in Mental Status Sepsis Action Taken by Nursing 09/13/22 18:30 09/13/22 18:30 09/13/22 18:56 Temperature Temperature Source Pulse Rate 59 L 59 L Pulse Rate from SpO2 Sensor 59 L 59 L Pulse Rhythm Pulse Strength Respiratory Rate 14 13 Respiratory Effort / Characteristics Respiratory Depth Respiratory Pattern Blood Pressure Blood Pressure Mean 98 Blood Pressure Position Pulse Oximetry 100 99 Oxygen Delivery Method Sepsis Recent Fever Within 48 Hours Sepsis New/Unexplained Change in Mental Status Sepsis Action Taken by Nursing 09/13/22 18:56 09/13/22 19:00 09/13/22 19:00 Temperature Temperature Source Pulse Rate 61 Pulse Rate from SpO2 Sensor 61 Pulse Rhythm Pulse Strength Respiratory Rate 18 Respiratory Effort / Characteristics Respiratory Depth Respiratory Pattern Blood Pressure 133/69 141/66 H Blood Pressure Mean 90 91 Blood Pressure Position Pulse Oximetry 100 Oxygen Delivery Method Sepsis Recent Fever Within 48 Hours Sepsis New/Unexplained Change in Mental Status Sepsis Action Taken by Nursing 09/13/22 19:30 09/13/22 20:00 09/13/22 20:30 Temperature Temperature Source Pulse Rate 60 61 61 Pulse Rate from SpO2 Sensor 60 61 61 Pulse Rhythm Pulse Strength Respiratory Rate 18 18 19 Respiratory Effort / Characteristics Respiratory Depth Respiratory Pattern Blood Pressure 127/68 126/68 125/72 Blood Pressure Mean 87 87 89 Blood Pressure Position Pulse Oximetry 100 100 100 Oxygen Delivery Method Sepsis Recent Fever Within 48 Hours Sepsis New/Unexplained Change in Mental Status Sepsis Action Taken by Nursing 09/13/22 21:00 09/13/22 21:30 09/13/22 21:30 Temperature Temperature Source Pulse Rate 61 62 Pulse Rate from SpO2 Sensor 62 62 Pulse Rhythm Pulse Strength Respiratory Rate 14 18 Respiratory Effort / Characteristics Respiratory Depth Respiratory Pattern Blood Pressure 128/65 127/68 Blood Pressure Mean 86 87 Blood Pressure Position Pulse Oximetry 99 99 Oxygen Delivery Method Sepsis Recent Fever Within 48 Hours Sepsis New/Unexplained Change in Mental Status Sepsis Action Taken by Nursing 09/13/22 22:00 09/13/22 22:00 Temperature Temperature Source Pulse Rate 64 Pulse Rate from SpO2 Sensor 63 Pulse Rhythm Pulse Strength Respiratory Rate 19 Respiratory Effort / Characteristics Respiratory Depth Respiratory Pattern Blood Pressure 128/68 Blood Pressure Mean 88 Blood Pressure Position Pulse Oximetry 99 Oxygen Delivery Method Sepsis Recent Fever Within 48 Hours Sepsis New/Unexplained Change in Mental Status Sepsis Action Taken by Nursing Laboratory Data 09/13/22 18:04 09/13/22 18:04 Lab Results 09/13/22 09/13/22 09/13/22 Range/Units 18:04 18:04 18:04 WBC 2.66 L (4.8-10.8) K/ul RBC 3.67 L (4.20-5.40) M/uL Hgb 10.3 L (12.0-16.0) g/dl Hct 32.0 L (37.0-47.0) % MCV 87.2 (80.0-100.0) fL MCH 28.1 (25.0-34.0) pg MCHC 32.2 (32.0-36.0) g/dL RDW Std Deviation 47.9 H (36.4-46.3) fL RDW Coeff of Alycia 14.9 H (11.5-14.5) % Plt Count 185 (130-400) K/uL MPV 9.3 L (9.4-12.4) fL Immature Gran % (Auto) 0.0 % Neut % (Auto) 61.7 % Lymph % (Auto) 21.4 % Amelia % (Auto) 13.9 % Eos % (Auto) 2.6 % Baso % (Auto) 0.4 % Neut # (Auto) 1.64 (1.40-6.50) K/uL Lymph # (Auto) 0.57 L (1.2-3.4) K/uL Amelia # (Auto) 0.37 (0.11-0.59) K/uL Eos # (Auto) 0.07 (0-0.50) K/uL Baso # (Auto) 0.01 (0-0.2) K/uL Immature Gran # (Auto) 0.00 L (0.01-0.20) K/uL PT 10.8 (9.0-12.0) Seconds INR 1.0 (0.9-1.1) APTT 23.8 (21.0-31.0) Seconds PTT Ratio 0.8 Sodium 131 L (136-145) mmol/L Potassium 4.1 (3.5-5.1) mmol/L Chloride 102 (98-107) mmol/L Carbon Dioxide 24 (21-32) mmol/L Anion Gap 5 (3-11) BUN 15 (6-23) mg/dl Creatinine 0.93 (0.6-1.2) mg/dl Est Cr Clr Drug Dosing 46.2 ml/min Est GFR ( Amer) 69.7 ml/min Est GFR (Non-Af Amer) 60.1 ml/min BUN/Creatinine Ratio 16.1 (10-20) Glucose 90 (70-99(Fasting)) mg/dl POC Glucose (70-99) mg/dl Calcium 8.7 (8.6-10.3) mg/dl Magnesium 2.2 (1.7-2.4) mg/dl Total Bilirubin 0.7 (0.2-1.0) mg/dl AST 19 (13-39) U/L ALT 14 (7-52) U/L Alkaline Phosphatase 86 (34-104) U/L Total Creatine Kinase 44 (26-192) U/L Troponin I High Sens 2.8 (0-14) pg/ml Total Protein 7.1 (6.0-8.3) gm/dl Albumin 3.9 (3.4-5.0) gm/dl Globulin 3.2 (2.5-4.0) gm/dl Albumin/Globulin Ratio 1.2 (0.9-2) SARS-CoV-2, RNA, NAAT (NEGATIVE) 09/13/22 09/13/22 Range/Units 18:04 18:23 WBC (4.8-10.8) K/ul RBC (4.20-5.40) M/uL Hgb (12.0-16.0) g/dl Hct (37.0-47.0) % MCV (80.0-100.0) fL MCH (25.0-34.0) pg MCHC (32.0-36.0) g/dL RDW Std Deviation (36.4-46.3) fL RDW Coeff of Alycia (11.5-14.5) % Plt Count (130-400) K/uL MPV (9.4-12.4) fL Immature Gran % (Auto) % Neut % (Auto) % Lymph % (Auto) % Amelia % (Auto) % Eos % (Auto) % Baso % (Auto) % Neut # (Auto) (1.40-6.50) K/uL Lymph # (Auto) (1.2-3.4) K/uL Amelia # (Auto) (0.11-0.59) K/uL Eos # (Auto) (0-0.50) K/uL Baso # (Auto) (0-0.2) K/uL Immature Gran # (Auto) (0.01-0.20) K/uL PT (9.0-12.0) Seconds INR (0.9-1.1) APTT (21.0-31.0) Seconds PTT Ratio Sodium (136-145) mmol/L Potassium (3.5-5.1) mmol/L Chloride (98-107) mmol/L Carbon Dioxide (21-32) mmol/L Anion Gap (3-11) BUN (6-23) mg/dl Creatinine (0.6-1.2) mg/dl Est Cr Clr Drug Dosing ml/min Est GFR ( Amer) ml/min Est GFR (Non-Af Amer) ml/min BUN/Creatinine Ratio (10-20) Glucose (70-99(Fasting)) mg/dl POC Glucose 84 (70-99) mg/dl Calcium (8.6-10.3) mg/dl Magnesium (1.7-2.4) mg/dl Total Bilirubin (0.2-1.0) mg/dl AST (13-39) U/L ALT (7-52) U/L Alkaline Phosphatase (34-104) U/L Total Creatine Kinase (26-192) U/L Troponin I High Sens (0-14) pg/ml Total Protein (6.0-8.3) gm/dl Albumin (3.4-5.0) gm/dl Globulin (2.5-4.0) gm/dl Albumin/Globulin Ratio (0.9-2) SARS-CoV-2, RNA, NAAT NEGATIVE (NEGATIVE) Imaging Data Radiologist's Impression: Cervical Spine CT 09/13/22 17:58 CT cervical spine wo con CLINICAL HISTORY: fall TECHNIQUE: Multidetector row helical CT of the cervical spine was performed without administration of intravenous contrast. Coronal and sagittal re formations were obtained. Automated dose lowering techniques and/or adjustment according to patient size were utilized for this exam. Comparison: Comparison is made to CT cervical spine 02/12/2020 FINDINGS: No acute fractures or subluxations are identified. Degenerative changes are seen in the visualized spine. The alignment is normal. Subcentimeter thyroid nodules are seen which do not require follow-up by ACR criteria. Biapical scarring is seen. IMPRESSION: Degenerative changes without evidence of acute bony injury. ACT 112: Negative or not required by law. Electronically signed by: Jose Tipton M.D. 09/13/2022 6:43 PM Chest X-Ray 09/13/22 17:58 XR chest 1V portable CLINICAL HISTORY: fall, L facial droop TECHNIQUE: Single frontal radiograph of the chest was obtained. Comparison: Comparison is made to chest radiograph 08/19/2022 FINDINGS: No lines and tubes are seen. The cardiomediastinal silhouette is normal. The lungs are clear. No evidence of pleural effusion or pneumothorax. IMPRESSION: No acute chest disease. ACT 112: Negative or not required by law. Electronically signed by: Jose Tipton M.D. 09/13/2022 7:[address] 09/13/22 17:58 CT facial bones wo con CLINICAL HISTORY: fall, L facial contusion, vision changes TECHNIQUE: Multidetector row helical CT of the maxillofacial bones was performed without administration of intravenous contrast, and processed with bone and soft tissue algorithms. Coronal and sagittal reformations were obtained. Automated dose lowering techniques and/or adjustment according to patient size were utilized for this exam. Comparison: None available at the time of this dictation. FINDINGS: Nasal bones are normal. The mandible is intact. The temporomandibular joints are anatomically aligned. Pterygoid plates are intact. Zygomatic arches are intact. The globes are normal and symmetric, without proptosis, obvious disruption or lens dislocation. There is no orbital radiopaque foreign body. The orbital song are intact. The retrobulbar fat is without evidence of disruption. Extraocular muscles are normal and symmetric. Optic nerve sheath complexes are normal in course and caliber. Imaged portions of the paranasal sinuses and mastoid air cells are clear. Soft tissue swelling is seen in the left axilla and infraorbital region. IMPRESSION: Left facial contusion without evidence of underlying fractures. ACT 112: Negative or not required by law. Electronically signed by: Jose Tipton M.D. 09/13/2022 6:[address] 09/13/22 17:58 CT head/brain wo con CLINICAL HISTORY: fall, L facial trauma/droop, Vision changes Technique: Contiguous axial CT images of the head were acquired from the base of the skull to the vertex without intravenous contrast administration. Images were viewed in brain, subdural and bone windows. Automated dose lowering techniques and/or adjustment according to patient size were utilized for this exam. Comparison: Comparison is made to CT head 08/19/2022 Findings: Areas of decreased attenuation are present in the periventricular and subcortical white matter bilaterally consistent with small vessel ischemic disease. Generalized cerebral atrophy with commensurate enlargement of the ventricles, sulci, and cisterns is also present. There is no acute intracranial hemorrhage or evidence of acute territorial infarction. No shift of the midline structures, mass effect, or extra-axial abnormalities are shown. Atherosclerotic calcifications are present in the intracranial segments of the internal carotid arteries. 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 Imaged portions of the paranasal sinuses and mastoid air cells are clear. The orbits appear normal. There are no acute fractures of the calvaria or scalp swelling. Impression: No acute intracranial hemorrhage, no evidence of acute territorial infarction or other acute intracranial disease process. ACT 112: Negative or not required by law. Electronically signed by: Jose Tipton M.D. 09/13/2022 6:20 PM Hip/Pelvis X-Ray 09/13/22 18:00 XR hip RT 2V w pelvis CLINICAL HISTORY: fall, pain TECHNIQUE: 2 views of the right hip and single frontal view of the pelvis were obtained. Comparison: Comparison is made to right hip radiograph 12/28/2020 FINDINGS: There is no evidence of an acute fracture. Extensive degenerative changes are seen in the hip joint. No soft tissue abnormality is seen. IMPRESSION: Degenerative changes without evidence of acute abnormality. ACT 112: Negative or not required by law. Electronically signed by: Jose Tipton M.D. 09/13/2022 7:16 PM Brain MRI 09/13/22 21:59 Exam(s): MRI HEAD Without Contrast EXAM: MR Head Without Intravenous Contrast CLINICAL HISTORY: Reason for exam: syncope. TECHNIQUE: Magnetic resonance images of the head/brain without intravenous contrast in multiple planes. COMPARISON: CT head 09/13/2022. FINDINGS: Brain: Scattered foci of susceptibility artifact in the cerebral hemispheres likely represent chronic microhemorrhages. Global parenchymal volume loss with chronic microvascular ischemic changes. Ventricles: No ventriculomegaly. Bones/joints: Unremarkable. Sinuses: Unremarkable as visualized. Mastoid air cells: Unremarkable as visualized. No mastoid effusion. Orbits: Right lens replacement. IMPRESSION: 1. No evidence of acute infarction. 2. Global parenchymal volume loss with chronic microvascular ischemic changes. Electronically signed by: Choco Daniel MD 09/13/22 23:56 PM Discharge Plan Visit Data Chief Complaint: TIA Symptoms Stated Complaint: REF BY DOC,BRUSING ON FACE,BLURRY VISION,DROOPING ED Provider: Blair Flower Discharge Problem: Short-term memory loss, Fall, Contusion of face, Facial droop Patient Disposition: Admitted As Inpatient Discharge Instructions Interventions: ED Discharge Assessment Last Done: 09/13/22 23:51
--- NOTE | 2022-09-13 18:22 | CT Scan Report ---
CT head/brain wo con CLINICAL HISTORY: fall, L facial trauma/droop, Vision changes Technique: Contiguous axial CT images of the head were acquired from the base of the skull to the partha candace without intravenous contrast administration. Images were viewed in brain, subdural and bone windo ws. Automated dose lowering techniques and/or adjustment according to patient size were utilized for this exam. Comparison: Comparison is made to CT head 08/19/2022 Findings: Areas of decreased attenuation are present in the periventricular and subcortical white matter bilate rally consistent with small vessel ischemic disease. Generalized cerebral atrophy with commensurate e nlargement of the ventricles, sulci, and cisterns is also present. There is no acute intracranial hem orrhage or evidence of acute territorial infarction. No shift of the midline structures, mass effect, or extra-axial abnormalities are shown. Atherosclerotic calcifications are present in the intracran ial segments of the internal carotid arteries. 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 Imaged portions of the paranasal sinuses and mastoid air cells are clear. The orbits appear normal. There are no acute fractures of the calvaria or scalp swelling. Impression: No acute intracranial hemorrhage, no evidence of acute territorial infarction or other acute intracra nial disease process. ACT 112: Negative or not required by law. Electronically signed by: Jose Tipton M.D. 09/13/2022 6:20 PM
[2022-09-13 18:23] LABS: Basophils # (auto) 0.01 K/uL (0-0.2); Basophils % (auto) 0.4 %; Eosinophils # (auto) 0.07 K/uL (0-0.50); Eosinophils % (auto) 2.6 %; Hemoglobin 10.3 g/dl (12.0-16.0); Lymphocytes # (auto) 0.57 K/uL (1.2-3.4); Lymphocytes % (auto) 21.4 %; Mean Corpuscular Hemoglobin 28.1 pg (25.0-34.0); Mean Corpuscular Hgb Conc 32.2 g/dL (32.0-36.0); Mean Corpuscular Volume 87.2 fL (80.0-100.0); Mean Platelet Volume 9.3 fL (9.4-12.4); Monocytes # (auto) 0.37 K/uL (0.11-0.59); Monocytes % (auto) 13.9 %; Neutrophils # (auto) 1.64 K/uL (1.40-6.50); Neutrophils % (auto) 61.7 %; Platelet Count 185 K/uL (130-400); RDW Coefficient of Variation 14.9 % (11.5-14.5); RDW Standard Deviation 47.9 fL (36.4-46.3); Red Blood Count 3.67 M/uL (4.20-5.40); White Blood Count 2.66 K/ul (4.8-10.8)
[2022-09-13 18:35] LABS: Albumin Globulin Ratio 1.2 (0.9-2); Albumin Level 3.9 gm/dl (3.4-5.0); BUN Creatinine Ratio 16.1 (10-20); Bilirubin,Total 0.7 mg/dl (0.2-1.0); Calcium 8.7 mg/dl (8.6-10.3); Creatinine Clr Calc Pharmacy 46.2 ml/min; Est GFR (African American) 69.7 ml/min; Est GFR (Non-African American) 60.1 ml/min; Globulin 3.2 gm/dl (2.5-4.0); Magnesium 2.2 mg/dl (1.7-2.4); Potassium 4.1 mmol/L (3.5-5.1); Total Protein 7.1 gm/dl (6.0-8.3)
--- NOTE | 2022-09-13 18:39 | CT Scan Report ---
CT facial bones wo con CLINICAL HISTORY: fall, L facial contusion, vision changes TECHNIQUE: Multidetector row helical CT of the maxillofacial bones was performed without administrati on of intravenous contrast, and processed with bone and soft tissue algorithms. Coronal and sagittal reformations were obtained. Automated dose lowering techniques and/or adjustment according to patient size were utilized for this exam. Comparison: None available at the time of this dictation. FINDINGS: Nasal bones are normal. The mandible is intact. The temporomandibular joints are anatomically aligned . Pterygoid plates are intact. Zygomatic arches are intact. The globes are normal and symmetric, without proptosis, obvious disruption or lens dislocation. Ther e is no orbital radiopaque foreign body. The orbital song are intact. The retrobulbar fat is without evidence of disruption. Extraocular muscles are normal and symmetric. Optic nerve sheath complexes are normal in course and caliber. Imaged portions of the paranasal sinuses and mastoid air cells are clear. Soft tissue swelling is se en in the left axilla and infraorbital region. IMPRESSION: Left facial contusion without evidence of underlying fractures. ACT 112: Negative or not required by law. Electronically signed by: Jose Tipton M.D. 09/13/2022 6:37 PM
[2022-09-13 18:42] LABS: Troponin I High Sensitivity 2.8 pg/ml (0-14)
[2022-09-13 18:45] LABS: Partial Thromboplastin Ratio 0.8; Partial Thromboplastin Time 23.8 Seconds (21.0-31.0); Prothrombin Time 10.8 Seconds (9.0-12.0)
--- NOTE | 2022-09-13 18:45 | CT Scan Report ---
CT cervical spine wo con CLINICAL HISTORY: fall TECHNIQUE: Multidetector row helical CT of the cervical spine was performed without administration of intravenous contrast. Coronal and sagittal reformations were obtained. Automated dose lowering techn iques and/or adjustment according to patient size were utilized for this exam. Comparison: Comparison is made to CT cervical spine 02/12/2020 FINDINGS: No acute fractures or subluxations are identified. Degenerative changes are seen in the visualized sp ine. The alignment is normal. Subcentimeter thyroid nodules are seen which do not require follow-up b y ACR criteria. Biapical scarring is seen. IMPRESSION: Degenerative changes without evidence of acute bony injury. ACT 112: Negative or not required by law. Electronically signed by: Jose Tipton M.D. 09/13/2022 6:43 PM
--- NOTE | 2022-09-13 19:14 | XRay Report ---
XR chest 1V portable CLINICAL HISTORY: fall, L facial droop TECHNIQUE: Single frontal radiograph of the chest was obtained. Comparison: Comparison is made to chest radiograph 08/19/2022 FINDINGS: No lines and tubes are seen. The cardiomediastinal silhouette is normal. The lungs are clear. No evid ence of pleural effusion or pneumothorax. IMPRESSION: No acute chest disease. ACT 112: Negative or not required by law. Electronically signed by: Jose Tipton M.D. 09/13/2022 7:12 PM
--- NOTE | 2022-09-13 19:17 | XRay Report ---
XR hip RT 2V w pelvis CLINICAL HISTORY: fall, pain TECHNIQUE: 2 views of the right hip and single frontal view of the pelvis were obtained. Comparison: Comparison is made to right hip radiograph 12/28/2020 FINDINGS: There is no evidence of an acute fracture. Extensive degenerative changes are seen in the hip joint. No soft tissue abnormality is seen. IMPRESSION: Degenerative changes without evidence of acute abnormality. ACT 112: Negative or not required by law. Electronically signed by: Jose Tipton M.D. 09/13/2022 7:16 PM
--- NOTE | 2022-09-13 22:01 | History & Physical Report ---
Date of Service September 13, 2022 Assessment & Plan (1) Fall: (2) Contusion of face: (3) Facial droop: (4) Anxiety: (5) Asthma: (6) Depression: (7) Major neurocognitive disorder: (8) Hypercholesterolemia: (9) Common migraine without aura: (10) Chronic cerebral ischemia: (11) CKD (chronic kidney disease): (12) Depression: (13) GERD without esophagitis: (14) Vitamin D deficiency: (15) Short-term memory loss: Plan Status post fall/left facial droop/left facial contusion- CT scan head, CT scan cervical spine both negative CT face shows left facial contusion The patient will be admitted to telemetry for serial cardiac enzymes, serial EKG's, cardiac rhythm monitoring and a 2-D echocardiogram with Dopplers. NPO except meds No active signs of infection MRI brain without contrast does not show acute event, does show chronic microvascular ischemic changes Order EEG NSS + KCl 20 mEq at 80 mils per hour x1 L Hyperlipidemia- Check a fasting lipid panel Hold simvastatin until able to take p.o. Depression- Continue fluoxetine when able to take p.o. municipal services manager to assess present living situation History of Present Illness Chief Complaint: The patient is referred to the emergency department with her caregiver from the outpatient clinic, after having an unwitnessed fall early Monday morning, where she sustained facial bruising on the left, and was noted to have a facial droop. The patient herself was not able to contribute significantly to HPI or ROS due to dementia Primary Care Provider: Yamil Zimmerman MD The patient is a 76-year-old female with a past medical history including unsatisfactory living conditions, poor personal hygiene, high risk for unsafe behavior, anxiety, asthma, depression, major neurocognitive disorder, hypercholesterolemia,, common migraine without aura, depression, GERD without esophagitis, vitamin D deficiency, CKD, chronic cerebral ischemia and short-term memory loss. The patient presents to the emergency department for assessment of left facial droop and left facial bruising. Allergies Allergy/AdvReac Type Severity Reaction Status Date / Time blue dye Allergy Severe UNKNOWN Verified 09/13/22 16:43 duloxetine Allergy Severe UNKNOWN Verified 09/13/22 16:43 erythromycin base Allergy Severe UNKNOWN Verified 09/13/22 16:43 naproxen Allergy Severe Unknown Verified 09/13/22 19:12 quetiapine Allergy Severe UNKNOWN Verified 09/13/22 16:43 shellfish derived Allergy Severe UNKNOWN Verified 09/13/22 16:43 Sulfa (Sulfonamide Allergy Severe Shortness Verified 09/13/22 16:43 Antibiotics) of Breath sulfamethoxazole Allergy Severe SHORTNESS Verified 09/13/22 16:43 OF BREATH trimethoprim Allergy Severe SHORTNESS Verified 09/13/22 16:43 OF BREATH venlafaxine Allergy Severe UNKNOWN Verified 09/13/22 16:43 zolpidem Allergy Severe UNKNOWN Verified 09/13/22 16:43 Penicillins Allergy Mild Unknown Verified 09/13/22 19:12 bee venom protein (honey bee) Allergy Unknown ANAPHYLAXIS Verified 09/13/22 16:43 hornet venom Allergy Unknown ANAPHYLAXIS Verified 09/13/22 16:43 Iodinated Contrast Media Allergy Unknown UNKNOWN Verified 09/13/22 16:43 NSAIDS (Non-Steroidal Allergy Unknown UNKNOWN Verified 09/13/22 16:43 Anti-Inflamma Home Medications Medication Instructions Recorded Confirmed Type multivitamin 1 tab PO DAILY 02/22/20 09/13/22 History acetaminophen 650 mg 650 mg PO Q8H PRN Pain #30 tabs 08/29/22 09/13/22 Rx tablet,extended release aspirin 81 mg tablet,delayed 81 mg PO DAILY #90 tabs 08/29/22 09/13/22 Rx release potassium citrate 10 mEq (1,080 10 meq PO BID #60 tabs 08/29/22 09/13/22 Rx mg) tablet,extended release simvastatin 20 mg tablet 20 mg PO DAILY #90 tabs 08/29/22 09/13/22 Rx Saccharomyces boulardii 250 mg 250 mg PO DAILY 09/13/22 09/13/22 History capsule fluoxetine 40 mg capsule 40 mg PO DAILY 09/13/22 09/13/22 History Past Med/Surg History Medical History Anxiety Asthma Contusion of left forearm Depression Facial laceration Facial laceration Metabolic acidosis with normal anion gap and failure of bicarbonate regeneration Right hip pain Right lumbar radiculitis Short-term memory loss Surgical History S/P hysterectomy with oophorectomy S/P shoulder surgery S/P total knee arthroplasty Family History Mother Congestive heart failure Diabetes Heart disease Other Family history non-contributory Denies family history of Ovarian cancer Prostate cancer Myocardial infarction Breast cancer Colorectal cancer Social History Smoking Status: Never smoker Second Hand Exposure: No; Do You Dip or Chew Tobacco: No; Hx Alcohol Use: Yes Alcohol type: wine Alcohol Intake Frequency: Monthly or Less Hx Substance Use: No Preferred Language: Liberian Communication Ability: Effective Hearing Ability: Normal Associate Juvenile Court Judge Required: No Beliefs That Will Affect Care: None marital status: Current Living Situation: Alone current occupational status: retired Feels Safe at Home: Yes Safety Concerns: Feels Safe At This Time Childhood Exposure to Second-Hand Smoke: No Dental Care, Regularly: No Physical Activity Frequency: 3-4 Times per Week Seatbelt Use: always Sunscreen Use: Yes Assistive Devices: Denture - Upper Review of Systems Review of Systems: The patient is not able to consider contribute to review of systems due to underlying dementia, and is as noted from caregivers above Physical Exam Physical Exam: The patient is awake, alert, noted left facial droop, and ecchymoses left side of face from chin to eyebrow, otherwise lying in bed and in no acute distress. HEENT--PERRL, EOMI, mucous membranes and oropharynx dry. Neck--supple. No JVD. No bruits. Thyroid normal, trachea midline, no adenopathy. Heart--normal S1 and S2. No murmurs, rubs or gallops. Lungs--clear bilaterally, no respiratory distress, no accessory muscle use. Abdomen--normal bowel sounds and soft. Nontender. Nondistended, no hernias or masses, no organomegaly. Extremities--no cyanosis or clubbing. No edema. There are good distal pulses b/l. Dermatologic--normal skin turgor, normal color, no abnormal lymph nodes, no rash. Neurologic--cranial nerves II through XII normal except for left facial droop, but overall examination limited due to left facial bruising and swelling Rheumatologic--normal range of motion. Psychiatric--normal affect. Results & Data Results & Data Vital Signs (Past 12 Hours) Vital Signs Temp Pulse Resp BP Pulse Ox O2 Del Method 09/13/22 19:00 61 18 100 09/13/22 19:00 141/66 H 09/13/22 18:56 133/69 09/13/22 18:56 59 L 13 99 09/13/22 18:30 59 L 14 100 09/13/22 18:17 60 13 100 09/13/22 18:17 127/69 09/13/22 18:00 60 17 100 09/13/22 17:57 67 16 99 09/13/22 17:58 65 09/13/22 17:40 37 C 66 16 132/74 99 Room Air Laboratory Results Laboratory Results WBC 2.66 K/ul (4.8-10.8) L 09/13/22 18:04 RBC 3.67 M/uL (4.20-5.40) L 09/13/22 18:04 Hgb 10.3 g/dl (12.0-16.0) L 09/13/22 18:04 Hct 32.0 % (37.0-47.0) L 09/13/22 18:04 MCV 87.2 fL (80.0-100.0) 09/13/22 18:04 MCH 28.1 pg (25.0-34.0) 09/13/22 18:04 MCHC 32.2 g/dL (32.0-36.0) 09/13/22 18:04 RDW Std Deviation 47.9 fL (36.4-46.3) H 09/13/22 18:04 RDW Coeff of Alycia 14.9 % (11.5-14.5) H 09/13/22 18:04 Plt Count 185 K/uL (130-400) 09/13/22 18:04 MPV 9.3 fL (9.4-12.4) L 09/13/22 18:04 Immature Gran % (Auto) 0.0 % 09/13/22 18:04 Neut % (Auto) 61.7 % 09/13/22 18:04 Lymph % (Auto) 21.4 % 09/13/22 18:04 Martin % (Auto) 13.9 % 09/13/22 18:04 Eos % (Auto) 2.6 % 09/13/22 18:04 Baso % (Auto) 0.4 % 09/13/22 18:04 Neut # (Auto) 1.64 K/uL (1.40-6.50) 09/13/22 18:04 Lymph # (Auto) 0.57 K/uL (1.2-3.4) L 09/13/22 18:04 Martin # (Auto) 0.37 K/uL (0.11-0.59) 09/13/22 18:04 Eos # (Auto) 0.07 K/uL (0-0.50) 09/13/22 18:04 Baso # (Auto) 0.01 K/uL (0-0.2) 09/13/22 18:04 Immature Gran # (Auto) 0.00 K/uL (0.01-0.20) L 09/13/22 18:04 PT 10.8 Seconds (9.0-12.0) 09/13/22 18:04 INR 1.0 (0.9-1.1) 09/13/22 18:04 APTT 23.8 Seconds (21.0-31.0) 09/13/22 18:04 PTT Ratio 0.8 09/13/22 18:04 Sodium 131 mmol/L (136-145) L 09/13/22 18:04 Potassium 4.1 mmol/L (3.5-5.1) 09/13/22 18:04 Chloride 102 mmol/L (98-107) 09/13/22 18:04 Carbon Dioxide 24 mmol/L (21-32) 09/13/22 18:04 Anion Gap 5 (3-11) 09/13/22 18:04 BUN 15 mg/dl (6-23) 09/13/22 18:04 Creatinine 0.93 mg/dl (0.6-1.2) 09/13/22 18:04 Est Cr Clr Drug Dosing 46.2 ml/min 09/13/22 18:04 Est GFR ( Amer) 69.7 ml/min 09/13/22 18:04 Est GFR (Non-Af Amer) 60.1 ml/min 09/13/22 18:04 BUN/Creatinine Ratio 16.1 (10-20) 09/13/22 18:04 Glucose 90 mg/dl (70-99(Fasting)) 09/13/22 18:04 POC Glucose 84 mg/dl (70-99) 09/13/22 18:23 Calcium 8.7 mg/dl (8.6-10.3) 09/13/22 18:04 Magnesium 2.2 mg/dl (1.7-2.4) 09/13/22 18:04 Total Bilirubin 0.7 mg/dl (0.2-1.0) 09/13/22 18:04 AST 19 U/L (13-39) 09/13/22 18:04 ALT 14 U/L (7-52) 09/13/22 18:04 Alkaline Phosphatase 86 U/L (34-104) 09/13/22 18:04 Total Creatine Kinase 44 U/L (26-192) 09/13/22 18:04 Troponin I High Sens 2.8 pg/ml (0-14) 09/13/22 18:04 Total Protein 7.1 gm/dl (6.0-8.3) 09/13/22 18:04 Albumin 3.9 gm/dl (3.4-5.0) 09/13/22 18:04 Globulin 3.2 gm/dl (2.5-4.0) 09/13/22 18:04 Albumin/Globulin Ratio 1.2 (0.9-2) 09/13/22 18:04 SARS-CoV-2, RNA, NAAT NEGATIVE (NEGATIVE) 09/13/22 18:[address] 09/13/22 17:58 CT cervical spine wo con CLINICAL HISTORY: fall TECHNIQUE: Multidetector row helical CT of the cervical spine was performed without administration of intravenous contrast. Coronal and sagittal reformations were obtained. Automated dose lowering techniques and/or adjustment according to patient size were utilized for this exam. Comparison: Comparison is made to CT cervical spine 02/12/2020 FINDINGS: No acute fractures or subluxations are identified. Degenerative changes are seen in the visualized spine. The alignment is normal. Subcentimeter thyroid nodules are seen which do not require follow-up by ACR criteria. Biapical scarring is seen. IMPRESSION: Degenerative changes without evidence of acute bony injury. ACT 112: Negative or not required by law. Electronically signed by: Jose Tipton M.D. 09/13/2022 6:43 PM Chest X-Ray 09/13/22 17:58 XR chest 1V portable CLINICAL HISTORY: fall, L facial droop TECHNIQUE: Single frontal radiograph of the chest was obtained. Comparison: Comparison is made to chest radiograph 08/19/2022 FINDINGS: No lines and tubes are seen. The cardiomediastinal silhouette is normal. The lungs are clear. No evidence of pleural effusion or pneumothorax. IMPRESSION: No acute chest disease. ACT 112: Negative or not required by law. Electronically signed by: Jose Tipton M.D. 09/13/2022 7:[address] 09/13/22 17:58 CT facial bones wo con CLINICAL HISTORY: fall, L facial contusion, vision changes TECHNIQUE: Multidetector row helical CT of the maxillofacial bones was performed without administration of intravenous contrast, and processed with bone and soft tissue algorithms. Coronal and sagittal reformations were obtained. Automated dose lowering techniques and/or adjustment according to patient size were utilized for this exam. Comparison: None available at the time of this dictation. FINDINGS: Nasal bones are normal. The mandible is intact. The temporomandibular joints are anatomically aligned. Pterygoid plates are intact. Zygomatic arches are intact. The globes are normal and symmetric, without proptosis, obvious disruption or lens dislocation. There is no orbital radiopaque foreign body. The orbital song are intact. The retrobulbar fat is without evidence of disruption. Extraocular muscles are normal and symmetric. Optic nerve sheath complexes are normal in course and caliber. Imaged portions of the paranasal sinuses and mastoid air cells are clear. Soft tissue swelling is seen in the left axilla and infraorbital region. IMPRESSION: Left facial contusion without evidence of underlying fractures. ACT 112: Negative or not required by law. Electronically signed by: Jose Tipton M.D. 09/13/2022 6:[address] 09/13/22 17:58 CT head/brain wo con CLINICAL HISTORY: fall, L facial trauma/droop, Vision changes Technique: Contiguous axial CT images of the head were acquired from the base of the skull to the vertex without intravenous contrast administration. Images were viewed in brain, subdural and bone windows. Automated dose lowering techniques and/or adjustment according to patient size were utilized for this exam. Comparison: Comparison is made to CT head 08/19/2022 Findings: Areas of decreased attenuation are present in the periventricular and subcortical white matter bilaterally consistent with small vessel ischemic disease. Generalized cerebral atrophy with commensurate enlargement of the ventricles, sulci, and cisterns is also present. There is no acute intracranial hemorrhage or evidence of acute territorial infarction. No shift of the midline structures, mass effect, or extra-axial abnormalities are shown. Atherosclerotic calcifications are present in the intracranial segments of the internal carotid arteries. 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 Imaged portions of the paranasal sinuses and mastoid air cells are clear. The orbits appear normal. There are no acute fractures of the calvaria or scalp swelling. Impression: No acute intracranial hemorrhage, no evidence of acute territorial infarction or other acute intracranial disease process. ACT 112: Negative or not required by law. Electronically signed by: Jose Tipton M.D. 09/13/2022 6:20 PM Hip/Pelvis X-Ray 09/13/22 18:00 XR hip RT 2V w pelvis CLINICAL HISTORY: fall, pain TECHNIQUE: 2 views of the right hip and single frontal view of the pelvis were obtained. Comparison: Comparison is made to right hip radiograph 12/28/2020 FINDINGS: There is no evidence of an acute fracture. Extensive degenerative changes are seen in the hip joint. No soft tissue abnormality is seen. IMPRESSION: Degenerative changes without evidence of acute abnormality. ACT 112: Negative or not required by law. Electronically signed by: Jose Tipton M.D. 09/13/2022 7:16 PM Brain MRI 09/13/22 21:59 Exam(s): MRI HEAD Without Contrast EXAM: MR Head Without Intravenous Contrast CLINICAL HISTORY: Reason for exam: syncope. TECHNIQUE: Magnetic resonance images of the head/brain without intravenous contrast in multiple planes. COMPARISON: CT head 09/13/2022. FINDINGS: Brain: Scattered foci of susceptibility artifact in the cerebral hemispheres likely represent chronic microhemorrhages. Global parenchymal volume loss with chronic microvascular ischemic changes. Ventricles: No ventriculomegaly. Bones/joints: Unremarkable. Sinuses: Unremarkable as visualized. Mastoid air cells: Unremarkable as visualized. No mastoid effusion. Orbits: Right lens replacement. IMPRESSION: 1. No evidence of acute infarction. 2. Global parenchymal volume loss with chronic microvascular ischemic changes. Electronically signed by: Choco Daniel MD 09/13/22 23:56 PM Code Status & VTE Plan Code Status Full code VTE Prophylaxis Plan VTE Prophylaxis will be ordered: Yes PG Care Time/CCT Total # of Minutes Spent Total Time Spent with Patient: Total time spent is greater than 50% in coordination of care (as documented) at patient's floor/unit and/or counseling patient: Coding Level of Care Code 91015 INT INP/OBS CARE MIN Diagnoses Fall W19.XXXA Encounter type: initial encounter Contusion of face S00.83XA Encounter type: initial encounter Facial droop R29.810 Anxiety F41.9 Asthma J45.909 Depression F32.9 Major neurocognitive disorder F01.50 Hypercholesterolemia E78.00 Common migraine without aura G43.009 Chronic cerebral ischemia I67.82 CKD (chronic kidney disease) N18.9 GERD without esophagitis K21.9 Vitamin D deficiency E55.9 Short-term memory loss R41.3 (1) Fall Encounter type: initial encounter Qualified Code(s): W19.XXXA - Unspecified fall, initial encounter (2) Contusion of face Encounter type: initial encounter Qualified Code(s): S00.83XA - Contusion of other part of head, initial encounter
--- NOTE | 2022-09-13 23:56 | Magnetic Resonance Report ---
Exam(s): MRI HEAD Without Contrast EXAM: MR Head Without Intravenous Contrast CLINICAL HISTORY: Reason for exam: syncope. TECHNIQUE: Magnetic resonance images of the head/brain without intravenous contrast in multiple planes. COMPARISON: CT head 09/13/2022. FINDINGS: Brain: Scattered foci of susceptibility artifact in the cerebral hemispheres likely represent chronic microhemorrhages. Global parenchymal volume loss with chronic microvascular ischemic changes. Ventricles: No ventriculomegaly. Bones/joints: Unremarkable. Sinuses: Unremarkable as visualized. Mastoid air cells: Unremarkable as visualized. No mastoid effusion. Orbits: Right lens replacement. IMPRESSION: 1. No evidence of acute infarction. 2. Global parenchymal volume loss with chronic microvascular ischemic changes. Electronically signed by: Choco Daniel MD 09/13/22 23:56 PM
[2022-09-14] MEDS ORDERED: NSS + 20MEQ KCL 20 MEQ/1,000 ML BAG IV SCH (00:09)
[2022-09-14] MEDS ORDERED: ACETAMINOPHEN 325 MG TAB PO PRN (00:09)
[2022-09-14] MEDS ORDERED: ONDANSETRON INJ 2 MG/ML 2 ML VIAL IV PRN (00:09)
[2022-09-14 08:02] LABS: Basophils # (auto) 0.01 K/uL (0-0.2); Basophils % (auto) 0.6 %; Eosinophils # (auto) 0.07 K/uL (0-0.50); Eosinophils % (auto) 3.9 %; Hematocrit (blood only) 31.7 % (37.0-47.0); Hemoglobin 10.4 g/dl (12.0-16.0); Lymphocytes # (auto) 0.41 K/uL (1.2-3.4); Lymphocytes % (auto) 22.8 %; Mean Corpuscular Hemoglobin 28.3 pg (25.0-34.0); Mean Corpuscular Hgb Conc 32.8 g/dL (32.0-36.0); Mean Corpuscular Volume 86.1 fL (80.0-100.0); Mean Platelet Volume 8.8 fL (9.4-12.4); Monocytes # (auto) 0.23 K/uL (0.11-0.59); Monocytes % (auto) 12.8 %; Neutrophils # (auto) 1.08 K/uL (1.40-6.50); Neutrophils % (auto) 59.9 %; Platelet Count 159 K/uL (130-400); RDW Coefficient of Variation 14.7 % (11.5-14.5); Red Blood Count 3.68 M/uL (4.20-5.40)
[2022-09-14 08:15] LABS: Albumin Level 3.5 gm/dl (3.4-5.0); BUN Creatinine Ratio 13.1 (10-20); Calcium 8.4 mg/dl (8.6-10.3); Creatinine Clr Calc Pharmacy 49.8 ml/min; Est GFR (African American) 78.8 ml/min; Magnesium 2.1 mg/dl (1.7-2.4); Phosphorus 3.1 mg/dl (2.5-4.9); Potassium 4.1 mmol/L (3.5-5.1)
[2022-09-14 12:05] LABS: Appearance Urine Clear (Clear); Bilirubin Urine Negative (Negative); Blood Urine Negative (Negative); Color Urine Yellow; Glucose Urine UA Negative (Negative); Ketones Urine Negative (Negative); Leukocyte Esterase Urine Negative (Negative); Nitrite Urine Negative (Negative); Protein Urine Negative (Negative); Specific Gravity Urine 1.012 (1.000-1.030); Urobilinogen Urine Negative (Negative)
--- NOTE | 2022-09-14 16:29 | Electroencephalogram ---
EEG Procedure Note Date of Service September 14, 2022 Start / End Times Start Time: :09 End Time: 07:29 Referring Physician Manny Benoit MD History Syncope, memory loss Home Medication List Medication Instructions Recorded Confirmed Type multivitamin 1 tab PO DAILY 02/22/20 09/13/22 History acetaminophen 650 mg 650 mg PO Q8H PRN Pain #30 tabs 08/29/22 09/13/22 Rx tablet,extended release aspirin 81 mg tablet,delayed 81 mg PO DAILY #90 tabs 08/29/22 09/13/22 Rx release potassium citrate 10 mEq (1,080 10 meq PO BID #60 tabs 08/29/22 09/13/22 Rx mg) tablet,extended release simvastatin 20 mg tablet 20 mg PO DAILY #90 tabs 08/29/22 09/13/22 Rx Saccharomyces boulardii 250 mg 250 mg PO DAILY 09/13/22 09/13/22 History capsule fluoxetine 40 mg capsule 40 mg PO DAILY 09/13/22 09/13/22 History Inpatient Medication List Discontinued Medications Potassium Chloride/Sodium Chloride (Normal Saline W/20 Meq Kcl) 20 meq in 1,000 mls @ 80 mls/hr IV .[id number] Stop: 09/14/22 12:38 Last Infusion: 09/14/22 13:31 Dose: 0 mls/hr Documented By: Admin: 09/14/22 00:57 Dose: 80 mls/hr Documented By: ANETTE Description This is a 21 electrode EEG with a single channel dedicated to limited EKG. The electrodes were placed in accordance with the International 10-20 system. Interpretation The patient has state awake during this EEG study. There is no distinctive posterior wakeful activity. Background activity shows low amplitude, intermittent mostly frontal 2 to 3 Hz delta waveforms, intermixed with low amplitude, 4 to 7 Hz generalized theta. Left frontal and right occipital electrode and electrical artifacts are noticed, which obscure background rhythm during the study. Photic stimulations do not induce posterior driving responses. Hyperventilation is not attempted. There is no sleep-related pattern. There are no electrographic seizures or epileptogenic discharges. Impression: This EEG, recorded in wakefulness only, is abnormal due to diffuse slowing with low amplitude, consistent with bihemispheric dysfunction, as seen in encephalopathies and neurodegenerative disorders. There is no electrographic seizure or epileptogenic discharge. Clinical Correlation Normal routine EEG cannot rule out seizure disorders definitively. If clinically indicated, a long-term EEG monitoring might offer further information.
--- NOTE | 2022-09-14 22:08 | Hospitalist Progress Note ---
Date of Service September 14, 2022 Assessment & Plan (1) Fall: Plan: Status post fall/left facial droop/left facial contusion- CT scan head, CT scan cervical spine both negative CT face shows left facial contusion The patient will be admitted to telemetry for serial cardiac enzymes, serial EKG's, cardiac rhythm monitoring and a 2-D echocardiogram with Dopplers. NPO except meds No active signs of infection MRI brain without contrast does not show acute event, does show chronic microvascular ischemic changes EEG negative. On 09/14, family updated. (2) Contusion of face: (3) Depression: Plan: chronic unclear if unstable continue fluoxetine. (4) Short-term memory loss: (5) Major neurocognitive disorder: Plan: chronic progressive moderate risk Short-term memory loss/major cognitive disorder/unsatisfactory living conditions/poor personal hygiene/at risk for unsafe behavior- Noted his issues in the outpatient setting D/w son, patient was sent home as limited oversight at [facility] on weekends, felt that 12 hours of care during day would be better. Her sons are interested in other options, and will discuss with case management. An option could be a SNF with a dementia unit Another option, family stated was retrying [facility] but with private pay on weekends. Plan Hyperlipidemia- continue simvastatin. director of outpatient services to assess present living situation Admission and Anticipated Discharge Date Admission Date: September 13, 2022 Subjective Patient is a poor historian, she has no new complaints. She does not recall falling. Review of Systems Review of Systems: Unobtainable due to cognitive status Physical Exam Physical Exam: The patient is awake, alert, mild left facial droop, and ecchymoses left side of face from chin to eyebrow, otherwise lying in bed and in no acute distress. HEENT--PERRL, EOMI, mucous membranes and oropharynx dry. Neck--supple. No JVD. No bruits. Thyroid normal, trachea midline, no adenopathy. Heart--normal S1 and S2. No murmurs, rubs or gallops. Lungs--clear bilaterally, no respiratory distress, no accessory muscle use. Abdomen--normal bowel sounds and soft. Nontender. Nondistended, no hernias or masses, no organomegaly. Extremities--no cyanosis or clubbing. No edema. There are good distal pulses b/l. Dermatologic--normal skin turgor, normal color, no abnormal lymph nodes, no rash. Neurologic--cranial nerves II through XII normal except for left facial droop, but overall examination limited due to left facial bruising and swelling Rheumatologic--normal range of motion. Psychiatric--normal affect. Results & Data Results & Data Vital Signs (Past 12 Hours) Vital Signs Temp Pulse Pulse Resp BP BP Pulse Ox 09/14/22 19:26 36.8 C 69 18 106/57 L 98 09/14/22 15:51 65 09/14/22 15:33 37.1 C 63 18 106/61 98 09/14/22 11:18 36.8 C 60 18 102/63 97 09/14/22 10:44 58 L O2 Del Method 09/14/22 19:26 Room Air 09/14/22 15:51 09/14/22 15:33 Room Air 09/14/22 11:18 Room Air 09/14/22 10:44 PG Care Time/CCT Total # of Minutes Spent Total Time Spent with Patient: Total time spent is greater than 50% in coordination of care (as documented) at patient's floor/unit and/or counseling patient: Coding Level of Care Code 18793 SUB INP/OBS CARE 3/50MIN Diagnoses Fall W19.XXXA Encounter type: initial encounter Contusion of face S00.83XA Encounter type: initial encounter Depression F32.9 Short-term memory loss R41.3 Major neurocognitive disorder F01.50 (1) Fall Encounter type: initial encounter Qualified Code(s): W19.XXXA - Unspecified fall, initial encounter (2) Contusion of face Encounter type: initial encounter Qualified Code(s): S00.83XA - Contusion of other part of head, initial encounter
--- NOTE | 2022-09-14 23:17 | Electrocardiogram Report ---
Test Reason : Blood Pressure : / mmHG Vent. Rate : 059 BPM Atrial Rate : 059 BPM P-R Int : 192 ms QRS Dur : 086 ms QT Int : 396 ms P-R-T Axes : 108 095 131 degrees QTc Int : 392 ms Suspect arm lead reversal, interpretation assumes no reversal Sinus bradycardia Lateral infarct , age undetermined Abnormal ECG When compared with ECG of 19-AUG-2022 15:39, Lateral infarct is now Present T wave inversion more evident in Lateral leads Confirmed by Estevan Wong ([id number]) on 09/14/2022 11:16:47 PM Referred By: Yamil Siddiqui Confirmed By:Estevan Wong
--- NOTE | 2022-09-15 05:32 | Electrocardiogram Report ---
Test Reason : Blood Pressure : / mmHG Vent. Rate : 061 BPM Atrial Rate : 061 BPM P-R Int : 188 ms QRS Dur : 084 ms QT Int : 410 ms P-R-T Axes : 076 044 054 degrees QTc Int : 412 ms Normal sinus rhythm Normal ECG When compared with ECG of 13-SEP-2022 18:21, Criteria for Lateral infarct are no longer Present T wave inversion no longer evident in Lateral leads Confirmed by Estevan Wong ([id number]) on 09/15/2022 5:32:28 AM Referred By: Yamil Siddiqui Confirmed By:Estevan Wong
[2022-09-15 07:01] LABS: Basophils # (auto) 0.01 K/uL (0-0.2); Basophils % (auto) 0.5 %; Eosinophils # (auto) 0.07 K/uL (0-0.50); Eosinophils % (auto) 3.3 %; Hematocrit (blood only) 32.1 % (37.0-47.0); Hemoglobin 10.5 g/dl (12.0-16.0); Immature Granulocytes # (auto) 0.01 K/uL (0.01-0.20); Immature Granulocytes % (auto) 0.5 %; Lymphocytes # (auto) 0.46 K/uL (1.2-3.4); Lymphocytes % (auto) 21.6 %; Mean Corpuscular Hemoglobin 28.2 pg (25.0-34.0); Mean Corpuscular Hgb Conc 32.7 g/dL (32.0-36.0); Mean Corpuscular Volume 86.1 fL (80.0-100.0); Mean Platelet Volume 9.1 fL (9.4-12.4); Monocytes # (auto) 0.28 K/uL (0.11-0.59); Monocytes % (auto) 13.1 %; Platelet Count 164 K/uL (130-400); RDW Coefficient of Variation 14.5 % (11.5-14.5); RDW Standard Deviation 46.1 fL (36.4-46.3); Red Blood Count 3.73 M/uL (4.20-5.40); White Blood Count 2.13 K/ul (4.8-10.8)
[2022-09-15 08:01] LABS: Albumin Level 3.6 gm/dl (3.4-5.0); Calcium 8.3 mg/dl (8.6-10.3)
[2022-09-15] MEDS: ASPIRIN 81 MG ECTAB PO SCH (08:06)
[2022-09-15] MEDS: FLUoxetine HCL 20 MG CAP PO SCH (08:06)
[2022-09-15 08:07] LABS: BUN Creatinine Ratio 19.2 (10-20); Est GFR (African American) 64.6 ml/min; Est GFR (Non-African American) 55.7 ml/min; Phosphorus 3.3 mg/dl (2.5-4.9)
[2022-09-15] MEDS: SIMVASTATIN 20 MG TAB PO SCH (08:07)
[2022-09-15] MEDS: MULTIVITAMIN TAB PO SCH (08:07)
--- NOTE | 2022-09-15 08:12 | Hospitalist Progress Note ---
Date of Service September 15, 2022 Assessment & Plan (1) Fall: Plan: Status post fall/left facial droop/left facial contusion- CT scan head, CT scan cervical spine both negative CT face shows left facial contusion No active signs of infection MRI brain without contrast does not show acute event, does show chronic microvascular ischemic changes EEG negative. (2) Contusion of face: (3) Depression: Plan: chronic unclear if unstable continue fluoxetine. (4) Short-term memory loss: (5) Major neurocognitive disorder: Plan: chronic progressive moderate risk Short-term memory loss/major cognitive disorder/unsatisfactory living conditions/poor personal hygiene/at risk for unsafe behavior- Noted these issues in the outpatient setting D/w son, patient was sent home as limited oversight at [facility] on weekends, felt that 12 hours of care during day would be better. Her sons are interested in other options, and will discuss with case management. An option could be a SNF with a dementia unit Another option, family stated was retrying [facility] but with private pay on weekends. Plan Hyperlipidemia- continue simvastatin. environmental services assistant to assess present living situation, difficult situation as in the past family has not wanted to take home with a waiver which she does have however she rhe presents with an injury, 5 days after most recent discharge Admission and Anticipated Discharge Date Admission Date: September 14, 2022 Subjective Patient was pleasant sitting in the chair she has significant facial ecchymosis and complain of some left elbow discomfort eating food small bites Physical Exam Physical Exam: She is awake she is intact with casual conversation but she is not oriented to time Results & Data Results & Data Laboratory Results Patient does well with functional ability but needs supervision as can be seen by her injury from falling Reviewed CBC Reviewed PRP PG Care Time/CCT Total # of Minutes Spent Total Time Spent with Patient: Total time spent is greater than 50% in coordination of care (as documented) at patient's floor/unit and/or counseling patient: Coding Level of Care Code 22750 SUB INP/OBS CARE 06/01MIN Diagnoses Fall W19.XXXA Encounter type: initial encounter Contusion of face S00.83XA Encounter type: initial encounter Depression F32.9 Short-term memory loss R41.3 Major neurocognitive disorder F01.50 (1) Fall Encounter type: initial encounter Qualified Code(s): W19.XXXA - Unspecified fall, initial encounter (2) Contusion of face Encounter type: initial encounter Qualified Code(s): S00.83XA - Contusion of other part of head, initial encounter
--- NOTE | 2022-09-16 05:28 | Electrocardiogram Report ---
Test Reason : Blood Pressure : / mmHG Vent. Rate : 065 BPM Atrial Rate : 065 BPM P-R Int : 188 ms QRS Dur : 078 ms QT Int : 396 ms P-R-T Axes : 084 063 073 degrees QTc Int : 411 ms Normal sinus rhythm Possible Septal infarct , age undetermined Abnormal ECG When compared with ECG of 14-SEP-2022 08:18, Septal infarct is now Present Confirmed by Estevan Wong ([id number]) on 09/16/2022 5:28:44 AM Referred By: Yamil Siddiqui Confirmed By:Estevan Wong
[2022-09-16 08:08] LABS: Hematocrit (blood only) 30.3 % (37.0-47.0); Hemoglobin 10.1 g/dl (12.0-16.0); Mean Corpuscular Hemoglobin 28.3 pg (25.0-34.0); Mean Corpuscular Hgb Conc 33.3 g/dL (32.0-36.0); Mean Corpuscular Volume 84.9 fL (80.0-100.0); Mean Platelet Volume 8.8 fL (9.4-12.4); Platelet Count 166 K/uL (130-400); RDW Coefficient of Variation 14.5 % (11.5-14.5); Red Blood Count 3.57 M/uL (4.20-5.40)
[2022-09-16 08:17] LABS: Albumin Level 3.5 gm/dl (3.4-5.0); BUN Creatinine Ratio 21.1 (10-20); Calcium 8.3 mg/dl (8.6-10.3); Creatinine Clr Calc Pharmacy 43.8 ml/min; Est GFR (African American) 67.9 ml/min; Est GFR (Non-African American) 58.6 ml/min; Magnesium 1.9 mg/dl (1.7-2.4)
[2022-09-16 08:30] LABS: ALC (manual) 0.48 K/uL (1.2-3.4); Basophils # (manual) 0.02 K/uL (0-0.2); Basophils % (manual) 1 %; Eosinophils # (manual) 0.06 K/uL (0-0.50); Eosinophils % (manual) 3 %; Lymphocytes # (manual) 0.48 K/uL (1.2-3.4); Lymphocytes % (manual) 25 %; Monocytes # (manual) 0.25 K/uL (0.11-0.59); Monocytes % (manual) 13 %; Neutrophils % (manual) 58 %; RBC Morphology Unremarkable
[2022-09-16] MEDS: FLUoxetine HCL 20 MG CAP PO SCH (08:37)
[2022-09-16] MEDS: MULTIVITAMIN TAB PO SCH (08:37)
[2022-09-16] MEDS: SIMVASTATIN 20 MG TAB PO SCH (08:37)
[2022-09-16] MEDS: ASPIRIN 81 MG ECTAB PO SCH (08:37)
--- NOTE | 2022-09-16 18:13 | Hospitalist Progress Note ---
Date of Service September 16, 2022 Assessment & Plan (1) Fall: Plan: Status post fall/left facial droop/left facial contusion-acute self limited resolving CT scan head, CT scan cervical spine both negative CT face shows left facial contusion No active signs of infection MRI brain without contrast does not show acute event, does show chronic microvascular ischemic changes EEG negative. (2) Contusion of face: (3) Depression: Plan: chronic unclear if unstable continue fluoxetine. (4) Short-term memory loss: (5) Major neurocognitive disorder: Plan: chronic progressive moderate risk Short-term memory loss/major cognitive disorder/unsatisfactory living conditions/poor personal hygiene/at risk for unsafe behavior- Noted these issues in the outpatient setting D/w son, patient was sent home as limited oversight at [facility] on weekends, felt that 12 hours of care during day would be better. Her sons are interested in other options, and will discuss with case management. An option could be a SNF with a dementia unit, family still opting for home with support Another option, family stated was retrying [facility] but with private pay on weekends. Plan Hyperlipidemia- continue simvastatin. protective services officer to assess present living situation, difficult situation as in the past family has not wanted to take home with a waiver which she does have however she rhe presents with an injury, 5 days after most recent discharge Admission and Anticipated Discharge Date Admission Date: September 14, 2022 Subjective pt is stable with no complaints, she is awaiting for home support to be coordinated Physical Exam Physical Exam: awake and alert, oriented x 2 facial bruising is receding Results & Data Results & Data Vital Signs (Past 12 Hours) Vital Signs Temp Pulse Resp BP Pulse Ox O2 Del Method 09/16/22 15:43 99.0 F 68 16 132/75 98 Room Air 09/16/22 07:45 98.2 F 64 18 126/79 99 Room Air Laboratory Results Reviewed CBC Reviewed PRP PG Care Time/CCT Total # of Minutes Spent Total Time Spent with Patient: Total time spent is greater than 50% in coordination of care (as documented) at patient's floor/unit and/or counseling patient: Coding Level of Care Code 40118 SUB INP/OBS CARE 1/25MIN Diagnoses Fall W19.XXXA Encounter type: initial encounter Contusion of face S00.83XA Encounter type: initial encounter Depression F32.9 Short-term memory loss R41.3 Major neurocognitive disorder F01.50 (1) Fall Encounter type: initial encounter Qualified Code(s): W19.XXXA - Unspecified fall, initial encounter (2) Contusion of face Encounter type: initial encounter Qualified Code(s): S00.83XA - Contusion of other part of head, initial encounter
[2022-09-16] MEDS: SODIUM CHLORIDE 1 GM TABLET PO SCH (21:13)
[2022-09-17] MEDS: ASPIRIN 81 MG ECTAB PO SCH (08:20)
[2022-09-17] MEDS: SIMVASTATIN 20 MG TAB PO SCH (08:20)
[2022-09-17] MEDS: FLUoxetine HCL 20 MG CAP PO SCH (08:20)
[2022-09-17] MEDS: MULTIVITAMIN TAB PO SCH (08:21)
[2022-09-17 14:00] LABS: Appearance Urine Clear (Clear); Bacteria Urine Automated Negative (Negative); Bilirubin Urine Negative (Negative); Blood Urine Negative (Negative); Color Urine Yellow; Glucose Urine UA Negative (Negative); Ketones Urine Negative (Negative); Leukocyte Esterase Urine Trace (Negative); Nitrite Urine Negative (Negative); Protein Urine Negative (Negative); RBC Urine Automated 0-4 /hpf (0-4); Specific Gravity Urine 1.013 (1.000-1.030); Urobilinogen Urine Negative (Negative)
--- NOTE | 2022-09-17 15:31 | Hospitalist Progress Note ---
Date of Service September 17, 2022 Assessment & Plan (1) Fall: Plan: Status post fall/left facial droop/left facial contusion-acute self limited resolving CT scan head, CT scan cervical spine both negative CT face shows left facial contusion No active signs of infection MRI brain without contrast does not show acute event, does show chronic microvascular ischemic changes EEG negative. (2) Contusion of face: Plan: Slowly healing with conservative care (3) Depression: Plan: chronic unclear if unstable continue fluoxetine. (4) Short-term memory loss: (5) Major neurocognitive disorder: Plan: chronic progressive moderate risk Short-term memory loss/major cognitive disorder/unsatisfactory living conditions/poor personal hygiene/at risk for unsafe behavior- case management D/w son, patient was sent home as limited oversight at [facility] on weekends, felt that 12 hours of care during day would be better. Family is willing to outpatient go home with increased report of care and see how she does Plan Hyperlipidemia- continue simvastatin. Admission and Anticipated Discharge Date Admission Date: September 14, 2022 Subjective pt is stable assessment , has had some urinary frequency without postvoid residual urine culture is pending Physical Exam Physical Exam: awake and alert, oriented x 2 facial bruising is receding Results & Data Results & Data Vital Signs (Past 12 Hours) Vital Signs Temp Pulse Resp BP Pulse Ox O2 Del Method 09/17/22 15:09 98.6 F 65 18 139/73 97 Room Air 09/17/22 07:30 Room Air 09/17/22 07:32 97.7 F 68 18 116/68 99 Room Air PG Care Time/CCT Total # of Minutes Spent Total Time Spent with Patient: Total time spent is greater than 50% in coordination of care (as documented) at patient's floor/unit and/or counseling patient: Coding Level of Care Code 51342 SUB INP/OBS CARE 1/25MIN Diagnoses Fall W19.XXXA Encounter type: initial encounter Contusion of face S00.83XA Encounter type: initial encounter Depression F32.9 Short-term memory loss R41.3 Major neurocognitive disorder F01.50 (1) Fall Encounter type: initial encounter Qualified Code(s): W19.XXXA - Unspecified fall, initial encounter (2) Contusion of face Encounter type: initial encounter Qualified Code(s): S00.83XA - Contusion of other part of head, initial encounter
[2022-09-17] MEDS: SODIUM CHLORIDE 1 GM TABLET PO SCH (20:28)
[2022-09-18] MEDS: ASPIRIN 81 MG ECTAB PO SCH (08:19)
[2022-09-18] MEDS: SIMVASTATIN 20 MG TAB PO SCH (08:19)
[2022-09-18] MEDS: FLUoxetine HCL 20 MG CAP PO SCH (08:19)
[2022-09-18] MEDS: MULTIVITAMIN TAB PO SCH (08:20)
--- NOTE | 2022-09-18 16:13 | Hospitalist Progress Note ---
Date of Service September 18, 2022 Assessment & Plan (1) Fall: Plan: Status post fall/left facial droop/left facial contusion-acute self limited resolving CT scan head, CT scan cervical spine both negative CT face shows left facial contusion No active signs of infection MRI brain without contrast does not show acute event, does show chronic microvascular ischemic changes EEG negative. (2) Contusion of face: Plan: Slowly healing with conservative care (3) Depression: Plan: chronic unclear if unstable continue fluoxetine. (4) Short-term memory loss: (5) Major neurocognitive disorder: Plan: chronic progressive moderate risk Short-term memory loss/major cognitive disorder/unsatisfactory living conditions/poor personal hygiene/at risk for unsafe behavior- case management D/w son, patient was sent home as limited oversight at [facility] weekends, felt that 12 hours of care during day would be better. Family is willing to outpatient go home with increased report of care and see how she does Plan Hyperlipidemia- continue simvastatin. Admission and Anticipated Discharge Date Admission Date: September 14, 2022 Subjective pt is stable assessment , has had some urinary frequency without postvoid residual urine culture is pending Physical Exam Physical Exam: awake and alert, oriented x 2 facial bruising conitnues to be receding Results & Data Results & Data Vital Signs (Past 12 Hours) Vital Signs Temp Pulse Resp BP Pulse Ox O2 Del Method 09/18/22 15:05 98.2 F 73 18 132/69 95 Room Air 09/18/22 07:19 98.2 F 66 20 142/77 H 96 Room Air PG Care Time/CCT Total # of Minutes Spent Total Time Spent with Patient: Total time spent is greater than 50% in coordination of care (as documented) at patient's floor/unit and/or counseling patient: Coding Level of Care Code 38019 SUB INP/OBS CARE 1/25MIN Diagnoses Fall W19.XXXA Encounter type: initial encounter Contusion of face S00.83XA Encounter type: initial encounter Depression F32.9 Short-term memory loss R41.3 Major neurocognitive disorder F01.50 (1) Fall Encounter type: initial encounter Qualified Code(s): W19.XXXA - Unspecified fall, initial encounter (2) Contusion of face Encounter type: initial encounter Qualified Code(s): S00.83XA - Contusion of other part of head, initial encounter
[2022-09-18] MEDS: SODIUM CHLORIDE 1 GM TABLET PO SCH (20:14)
[2022-09-19] MEDS: ASPIRIN 81 MG ECTAB PO SCH (07:50)
[2022-09-19] MEDS: FLUoxetine HCL 20 MG CAP PO SCH (07:50)
[2022-09-19] MEDS: SIMVASTATIN 20 MG TAB PO SCH (07:50)
[2022-09-19] MEDS: MULTIVITAMIN TAB PO SCH (07:50)
[2022-09-19 12:02] LABS: BUN Creatinine Ratio 20.5 (10-20); Calcium 8.9 mg/dl (8.6-10.3); Creatinine Clr Calc Pharmacy 57.3 ml/min; Est GFR (African American) 93.4 ml/min; Est GFR (Non-African American) 80.6 ml/min; Potassium 3.3 mmol/L (3.5-5.1)
--- NOTE | 2022-09-19 15:52 | Discharge Summary ---
Date of Service September 19, 2022 Admission HPI Per Admitting Provider The patient is a 76-year-old female with a past medical history including unsatisfactory living conditions, poor personal hygiene, high risk for unsafe behavior, anxiety, asthma, depression, major neurocognitive disorder, hypercholesterolemia,, common migraine without aura, depression, GERD without esophagitis, vitamin D deficiency, CKD, chronic cerebral ischemia and short-term memory loss. The patient presents to the emergency department for assessment of left facial droop and left facial bruising. Principal Diagnosis Fall with facial contusion Hyponatremia Discharge Exam pt was pleasant and seemingly at her baseline for mental status despite a lower sodium Discharge Data Allergies Allergy/AdvReac Type Severity Reaction Status Date / Time blue dye Allergy Severe UNKNOWN Verified 09/13/22 16:43 duloxetine Allergy Severe UNKNOWN Verified 09/13/22 16:43 erythromycin base Allergy Severe UNKNOWN Verified 09/13/22 16:43 naproxen Allergy Severe Unknown Verified 09/13/22 19:12 quetiapine Allergy Severe UNKNOWN Verified 09/13/22 16:43 shellfish derived Allergy Severe UNKNOWN Verified 09/13/22 16:43 Sulfa (Sulfonamide Allergy Severe Shortness Verified 09/13/22 16:43 Antibiotics) of Breath sulfamethoxazole Allergy Severe SHORTNESS Verified 09/13/22 16:43 OF BREATH trimethoprim Allergy Severe SHORTNESS Verified 09/13/22 16:43 OF BREATH venlafaxine Allergy Severe UNKNOWN Verified 09/13/22 16:43 zolpidem Allergy Severe UNKNOWN Verified 09/13/22 16:43 Penicillins Allergy Mild Unknown Verified 09/13/22 19:12 bee venom protein (honey bee) Allergy Unknown ANAPHYLAXIS Verified 09/13/22 16:43 hornet venom Allergy Unknown ANAPHYLAXIS Verified 09/13/22 16:43 Iodinated Contrast Media Allergy Unknown UNKNOWN Verified 09/13/22 16:43 NSAIDS (Non-Steroidal Allergy Unknown UNKNOWN Verified 09/13/22 16:43 Anti-Inflamma Consultations 09/13/22 19:48 ED Decision to Admit Stat Ordered Studies 09/13/22 17:58 CT cervical spine wo con Stat CT face [CT facial bones wo con] Stat CT head/brain wo con Stat 09/13/22 21:59 MRI Brain [MR brain wo con] Urgent Hospital Course (1) Fall: Status post fall/left facial droop/left facial contusion-acute self limited resolving CT scan head, CT scan cervical spine both negative CT face shows left facial contusion No active signs of infection MRI brain without contrast does not show acute event, does show chronic microvascular ischemic changes EEG negative. (2) Contusion of face: Slowly healing with conservative care (3) Depression: chronic unclear if unstable continue fluoxetine. (4) Short-term memory loss: (5) Major neurocognitive disorder: chronic progressive moderate risk Short-term memory loss/major cognitive disorder/unsatisfactory living conditi ons/poor personal hygiene/at risk for unsafe behavior- case management D/w son, patient was sent home as limited oversight at [facility] on [facility], felt that 12 hours of care during day would be better. Family is willing to outpatient go home with increased report of care and see how she does Plan He has had persistent hyponatremia discharged on salt tablets increase the dose to twice daily Total Time Total Time Spent Total Time Spent (In Minutes): It required less than 30 minutes to prepare this patient for discharge Discharge Plan Discharge Items Patient Disposition: Home - Home Health Services Reason For Visit: SYNCOPE, LEFT FACIAL DROOP Discharge Diagnosis: weakness fall with facial contusion low blood sodium Activity: Per Instructions section Activity Comment: care with ambulation and change of position Non-emergency contact: Primary Care Provider Call non-emergency contact if: your symptoms worsen Follow-up/Referrals: Yamil Zimmerman MD [Primary Care Provider] - 09/27/22 11:00 am (APPOINTMENT WITH WILLIAMS CHATMAN PA-C) Diet: Regular Ambulatory Orders: Basic Metabolic Panel (Routine) Timeframe: 2 Days Location: Determined by Patient Ordered By: Bradley Guerrero Attending Provider Instructions: Please take extra care when moving and changing position Pending Studies at Discharge: No Stand-Alone Forms: [facility] [employer], Smoking Cessation Medications and DC Order Prescriptions: New sodium chloride 1,000 mg tablet,soluble 1,000 mg PO BID Qty: 60 0RF potassium citrate 10 mEq (1,080 mg) tablet extended release 10 meq PO DAILY Qty: 30 5RF Continued multivitamin Tablet 1 tab PO DAILY aspirin 81 mg tablet,delayed release (DR/EC) 81 mg PO DAILY Qty: 90 1RF acetaminophen 650 mg Tablet Extended Release 650 mg PO Q8H PRN (Reason: Pain) Qty: 30 0RF simvastatin 20 mg tablet 20 mg PO DAILY Qty: 90 3RF fluoxetine 40 mg capsule 40 mg PO DAILY Discontinued Saccharomyces boulardii 250 mg capsule 250 mg PO DAILY Rx Instructions: swallow whole potassium citrate 10 mEq (1,080 mg) Tablet Extended Release 10 meq PO BID Qty: 60 0RF Discharge Orders: Discharge Order (Routine); Ordered 09/19/22 Ordered By: Bradley Pyle/Other Patient Handouts: Hyponatremia Dc Admission Data Admit Date/Time: 09/14/22 22:07 Attending Provider: Bradley Mclain Admit Provider: Manny Benoit Primary Care Provider: Yamil Zimmerman V. Other Providers: Manny Benoit Other Interventions: Discharge Summary Assessment (RN) Last Done: 09/19/22 13:51 Coding Level of Care Code 61503 IN/OBS DISCH 30 MIN/LESS Diagnoses Fall W19.XXXA Encounter type: initial encounter Contusion of face S00.83XA Encounter type: initial encounter Depression F32.9 Short-term memory loss R41.3 Major neurocognitive disorder F01.50
== END 2022-09-19 15:36 | disposition home health service (06) | DRG 92 ==
LOC: ED 17:30 → 2W 17:30 → SUATTDRO 22:01 → 2W 23:51 → SUATTDRO 09-14 22:07 → 3N 09-19 02:17

== ENCOUNTER 2022-09-23 14:38 | Inpatient (IN) ==
[2022-09-23 15:41] LABS: Basophils # (auto) 0.01 K/uL (0-0.2); Basophils % (auto) 0.5 %; Eosinophils # (auto) 0.03 K/uL (0-0.50); Eosinophils % (auto) 1.6 %; Hematocrit (blood only) 32.2 % (37.0-47.0); Hemoglobin 11.1 g/dl (12.0-16.0); Lymphocytes # (auto) 0.36 K/uL (1.2-3.4); Lymphocytes % (auto) 18.9 %; Mean Corpuscular Hemoglobin 28.2 pg (25.0-34.0); Mean Corpuscular Hgb Conc 34.5 g/dL (32.0-36.0); Mean Corpuscular Volume 81.7 fL (80.0-100.0); Mean Platelet Volume 8.6 fL (9.4-12.4); Monocytes # (auto) 0.39 K/uL (0.11-0.59); Monocytes % (auto) 20.5 %; Neutrophils # (auto) 1.11 K/uL (1.40-6.50); Neutrophils % (auto) 58.5 %; Platelet Count 195 K/uL (130-400); RDW Coefficient of Variation 14.2 % (11.5-14.5); RDW Standard Deviation 42.5 fL (36.4-46.3); Red Blood Count 3.94 M/uL (4.20-5.40)
--- NOTE | 2022-09-23 15:44 | Electrocardiogram Report ---
Test Reason : Blood Pressure : / mmHG Vent. Rate : 066 BPM Atrial Rate : 066 BPM P-R Int : 174 ms QRS Dur : 086 ms QT Int : 412 ms P-R-T Axes : 070 045 059 degrees QTc Int : 431 ms Normal sinus rhythm Normal ECG When compared with ECG of 15-SEP-2022 05:25, No significant change was found Confirmed by Simon Schmidt ([id number]) on 09/23/2022 3:42:27 PM Referred By: Confirmed By:Zaid Schmidt
[2022-09-23 15:59] LABS: Alanine Aminotransferase 16 U/L (7-52); Albumin Globulin Ratio 1.3 (0.9-2); Alkaline Phosphatase 101 U/L (34-104); Anion Gap 6 (3-11); Aspartate Aminotransferase 22 U/L (13-39); BUN Creatinine Ratio 12.3 (10-20); Bilirubin,Total 0.7 mg/dl (0.2-1.0); Blood Urea Nitrogen 9 mg/dl (6-23); Carbon Dioxide 25 mmol/L (21-32); Chloride 91 mmol/L (98-107); Est GFR (African American) 93.4 ml/min; Est GFR (Non-African American) 80.6 ml/min; Globulin 3.2 gm/dl (2.5-4.0); Glucose 94 mg/dl (70-99(Fasting)); Potassium 3.5 mmol/L (3.5-5.1); Sodium 122 mmol/L (136-145); Total Protein 7.2 gm/dl (6.0-8.3)
--- NOTE | 2022-09-23 16:41 | Emergency Department Note ---
Impression & Plan Acute hyponatremia, Decreased activities of daily living (ADL) ED Provider Note INFORMANT: Patient ED PROVIDER(S): Karson Gilbert DO CHIEF COMPLAINT: Inability to complete ADLs, not acting herself PLAN: Disposition: Admission Outpatient prescription management: none Discussion with: I spoke with the hospitalist, who will see the patient for admission/observation and further evaluation and consultation. MEDICAL DECISION MAKING: This is a 76-year-old female who presents to the ED with a chief complaint, per the [facility] notes of inability to complete ADLs and not acting the same as usual. She is not acting herself. The patient was admitted to the hospital last week. She did appear to have some hyponatremia that worsened during her stay. The patient denies any specific complaints. She is not sure why she is here. She does have a history of dementia. She states that she lives part-time in an apartment by herself as well as part-time with her parents. This is obviously inaccurate. Her history is therefore not reliable. The patient's white blood cell count is 1.9. This appears to be baseline. Hemoglobin is 11.1. Sodium is 122. This is down from 131-123 on her previous recent admission. No other chemistry abnormality. EKG shows a normal sinus rhythm. Chest x-ray did not show acute process. Patient will be seen by the hospitalist for further evaluation and care. Triage Nursing notes reviewed. Vital Signs: reviewed Prior /Outside records reviewed: none Differential diagnosis: Differential includes acute coronary syndrome, myocardial infarction, CVA, TIA, anemia, infection, pneumonia, UTI, pyelonephritis, poor nutrition, dehydration, electrolyte disturbance,hypoglycemia. Diagnostics, as interpreted by me: 12 lead ECG: Normal sinus rhythm rate of 66. No ST elevation. No PVCs. Normal QTc. Cardiac Monitoring ordered: Sinus rhythm in the 60s and 70s. Medical decision rules: none Imaging studies: Chest x-ray: No pneumonia. Procedures: none. Critical care: none. HPI: See MDM above. PAST MEDICAL HISTORY: See Below PAST SURGICAL HISTORY: See Below SOCIAL HISTORY: See Below HOME MEDICATIONS:See Below ALLERGIES: See Below VITALS: See Below PHYSICAL EXAMINATION: See MDM for positive findings otherwise unremarkable. CONSTITUTIONAL/VITAL SIGNS: Reviewed GENERAL:done as appropriate INTEGUMENTARY: done as appropriate HEAD: done as appropriate EYES: done as appropriate RESPIRATORY: done as appropriate CARDIOVASCULAR:done as appropriate GI/ABDOMEN:done as appropriate EXTREMITIES: done as appropriate NEUROLOGICAL: done as appropriate PSYCHIATRIC:done as appropriate MUSCULOSKELETAL:done as appropriate TRIAGE NURSING DOCUMENTATION REVIEWED. Past Med/Surg History Medical History Anxiety Asthma Contusion of left forearm Depression Facial laceration Facial laceration Metabolic acidosis with normal anion gap and failure of bicarbonate regeneration Right hip pain Right lumbar radiculitis Short-term memory loss Surgical History S/P hysterectomy with oophorectomy S/P shoulder surgery S/P total knee arthroplasty Family History Mother Congestive heart failure Diabetes Heart disease Other Family history non-contributory Denies family history of Ovarian cancer Prostate cancer Myocardial infarction Breast cancer Colorectal cancer Social History Smoking Status: Never smoker Second Hand Exposure: No; Do You Dip or Chew Tobacco: No; Hx Alcohol Use: Yes Alcohol type: wine Alcohol Intake Frequency: Monthly or Less Hx Substance Use: No Preferred Language: Portuguese Communication Ability: Effective Hearing Ability: Normal Service Porter Required: No Beliefs That Will Affect Care: None marital status: Current Living Situation: Alone current occupational status: retired Feels Safe at Home: Yes Childhood Exposure to Second-Hand Smoke: No Dental Care, Regularly: No Physical Activity Frequency: 3-4 Times per Week Seatbelt Use: always Sunscreen Use: Yes Assistive Devices: Walker Allergies Allergies Allergy/AdvReac Type Severity Reaction Status Date / Time bee venom protein (honey bee) Allergy Severe ANAPHYLAXIS Verified 09/23/22 17:29 hornet venom Allergy Severe ANAPHYLAXIS Verified 09/23/22 17:29 Sulfa (Sulfonamide Allergy Severe Shortness Verified 09/23/22 17:29 Antibiotics) of Breath sulfamethoxazole Allergy Severe SHORTNESS Verified 09/23/22 17:29 OF BREATH trimethoprim Allergy Severe SHORTNESS Verified 09/23/22 17:29 OF BREATH blue dye Allergy Unknown UNKNOWN Verified 09/23/22 17:29 duloxetine Allergy Unknown UNKNOWN Verified 09/23/22 17:29 erythromycin base Allergy Unknown UNKNOWN Verified 09/23/22 17:29 Iodinated Contrast Media Allergy Unknown UNKNOWN Verified 09/23/22 17:29 naproxen Allergy Unknown Unknown Verified 09/23/22 17:29 NSAIDS (Non-Steroidal Allergy Unknown UNKNOWN Verified 09/23/22 17:29 Anti-Inflamma Penicillins Allergy Unknown Unknown Verified 09/23/22 17:29 quetiapine Allergy Unknown UNKNOWN Verified 09/23/22 17:29 shellfish derived Allergy Unknown UNKNOWN Verified 09/23/22 17:29 venlafaxine Allergy Unknown UNKNOWN Verified 09/23/22 17:29 zolpidem Allergy Unknown UNKNOWN Verified 09/23/22 17:29 Home Meds Home Medications Medication Instructions Recorded Confirmed multivitamin 1 tab PO DAILY 02/22/20 09/23/22 fluoxetine 40 mg capsule 40 mg PO DAILY 09/13/22 09/23/22 Previous Rx's Medication Instructions Recorded acetaminophen 650 mg 650 mg PO Q8H PRN Pain #30 tabs 08/29/22 tablet,extended release aspirin 81 mg tablet,delayed 81 mg PO DAILY #90 tabs 08/29/22 release simvastatin 20 mg tablet 20 mg PO DAILY #90 tabs 08/29/22 sodium chloride 1,000 mg soluble 1,000 mg PO BID #60 tabs 09/19/22 tablet Results & Data (ED) Vital Signs Vital Signs - 24 hr 09/23/22 14:43 09/23/22 16:40 09/23/22 16:58 Temperature 36.5 C Temperature Source Oral Pulse Rate 68 60 Pulse Rate [Apical] 61 Respiratory Rate 18 17 Respiratory Effort / Characteristics Non-Labored Respiratory Depth Normal Normal Blood Pressure 129/71 Blood Pressure [Right Arm] 121/69 Blood Pressure Mean 90 Blood Pressure Mean [Right Arm] 86 Pulse Oximetry 97 99 Oxygen Delivery Method Room Air Room Air Sepsis Recent Fever Within 48 Hours No Sepsis New/Unexplained Change in Mental Status No Sepsis Action Taken by Nursing No Action Required 09/23/22 18:24 Temperature Temperature Source Pulse Rate Pulse Rate [Apical] 67 Respiratory Rate 18 Respiratory Effort / Characteristics Respiratory Depth Blood Pressure Blood Pressure [Right Arm] 131/70 Blood Pressure Mean Blood Pressure Mean [Right Arm] 90 Pulse Oximetry 99 Oxygen Delivery Method Room Air Sepsis Recent Fever Within 48 Hours Sepsis New/Unexplained Change in Mental Status Sepsis Action Taken by Nursing Laboratory Data 09/23/22 15:24 09/23/22 15:24 Lab Results 09/23/22 09/23/22 09/23/22 Range/Units 15:24 15:24 17:00 WBC 1.90 L (4.8-10.8) K/ul RBC 3.94 L (4.20-5.40) M/uL Hgb 11.1 L (12.0-16.0) g/dl Hct 32.2 L (37.0-47.0) % MCV 81.7 (80.0-100.0) fL MCH 28.2 (25.0-34.0) pg MCHC 34.5 (32.0-36.0) g/dL RDW Std Deviation 42.5 (36.4-46.3) fL RDW Coeff of Alycia 14.2 (11.5-14.5) % Plt Count 195 (130-400) K/uL MPV 8.6 L (9.4-12.4) fL Immature Gran % (Auto) 0.0 % Neut % (Auto) 58.5 % Lymph % (Auto) 18.9 % Hardy % (Auto) 20.5 % Eos % (Auto) 1.6 % Baso % (Auto) 0.5 % Neut # (Auto) 1.11 L (1.40-6.50) K/uL Lymph # (Auto) 0.36 L (1.2-3.4) K/uL Hardy # (Auto) 0.39 (0.11-0.59) K/uL Eos # (Auto) 0.03 (0-0.50) K/uL Baso # (Auto) 0.01 (0-0.2) K/uL Immature Gran # (Auto) 0.00 L (0.01-0.20) K/uL Sodium 122 L (136-145) mmol/L Potassium 3.5 (3.5-5.1) mmol/L Chloride 91 L (98-107) mmol/L Carbon Dioxide 25 (21-32) mmol/L Anion Gap 6 (3-11) BUN 9 (6-23) mg/dl Creatinine 0.73 (0.6-1.2) mg/dl Est Cr Clr Drug Dosing Not Reportable Est GFR ( Amer) 93.4 ml/min Est GFR (Non-Af Amer) 80.6 ml/min BUN/Creatinine Ratio 12.3 (10-20) Glucose 94 (70-99(Fasting)) mg/dl Calcium 9.0 (8.6-10.3) mg/dl Total Bilirubin 0.7 (0.2-1.0) mg/dl AST 22 (13-39) U/L ALT 16 (7-52) U/L Alkaline Phosphatase 101 (34-104) U/L Total Protein 7.2 (6.0-8.3) gm/dl Albumin 4.0 (3.4-5.0) gm/dl Globulin 3.2 (2.5-4.0) gm/dl Albumin/Globulin Ratio 1.3 (0.9-2) SARS-CoV-2, RNA, NAAT NEGATIVE (NEGATIVE) Administered Medications Sodium Chloride (Nss 1000ml) 1,000 mls @ 999 mls/hr IV .Q1H1M ONE Stop: 09/23/22 19:29 Last Admin: 09/23/22 18:36 Dose: 999 mls/hr Documented By: Imaging Data Radiologist's Impression: Chest X-Ray 09/23/22 16:42 XR chest 1V portable HISTORY: 76 years-old Female ams acutely altered mental status COMPARISON: 09/13/2022 TECHNIQUE: AP view of the chest FINDINGS: Cardiomediastinal and hilar silhouettes are within normal limits. No pneumothorax, pleural effusion, airspace consolidation or pulmonary edema. Mild hyperinflation. Degenerative changes of the shoulders and spine. IMPRESSION: No acute process. ACT 112: Negative or not required by law. The above report was generated using voice recognition software. It may contain grammatical, syntax or spelling errors. Electronically signed by: Enrique Lilly M.D. 09/23/2022 5:07 PM Discharge Plan Visit Data Chief Complaint: Illness Stated Complaint: ILLNESS, FAILURE TO THRIVE ED Provider: Karson Gilbert Discharge Problem: Acute hyponatremia, Decreased activities of daily living (ADL) Patient Disposition: Being Evaluated by Hospitalist Forms Stand Alone Forms: [facility] Prescriptions Prescriptions: No Action multivitamin Tablet 1 tab PO DAILY aspirin 81 mg tablet,delayed release (DR/EC) 81 mg PO DAILY Qty: 90 1RF acetaminophen 650 mg Tablet Extended Release 650 mg PO Q8H PRN (Reason: Pain) Qty: 30 0RF simvastatin 20 mg tablet 20 mg PO DAILY Qty: 90 3RF fluoxetine 40 mg capsule 40 mg PO DAILY sodium chloride 1,000 mg tablet,soluble 1,000 mg PO BID Qty: 60 0RF Referrals Referrals: Yamil Zimmerman MD [Primary Care Provider] -
--- NOTE | 2022-09-23 17:09 | XRay Report ---
XR chest 1V portable HISTORY: 76 years-old Female ams acutely altered mental status COMPARISON: 09/13/2022 TECHNIQUE: AP view of the chest FINDINGS: Cardiomediastinal and hilar silhouettes are within normal limits. No pneumothorax, pleural effusion, airspace consolidation or pulmonary edema. Mild hyperinflation. Degenerative changes of the shoulders and spine. IMPRESSION: No acute process. ACT 112: Negative or not required by law. The above report was generated using voice recognition software. It may contain grammatical, syntax o r spelling errors. Electronically signed by: Enrique Lilly M.D. 09/23/2022 5:07 PM
--- NOTE | 2022-09-23 17:25 | History & Physical Report ---
Date of Service September 23, 2022 Assessment & Plan (1) Hyponatremia: Plan: Acute on chronic confusion.? UTI versus hyponatremia versus chronic progressive dementia with delirium Patient with history of vascular dementia, progressive typically with short- term memory impairment Acutely worsened per personal-group home report more than baseline. Patient has had very foul-smelling urine and dysuria for 2 days Patient with progressively downtrending hyponatremia, last sodium normal 08/2022 For hyponatremia evaluation we will continue salt tablets, hold fluoxetine, and obtain urine studies and serum osmolality Appears euvolemic on assessment Urine studies pending Urine precautions BMP every 4 hours. If sodium downtrends under 120 transfer to telemetry #UTI Patient has been unable to provide sample by time of hospitalist assessment, but patient and family do endorse 2 days of fatigue acute confusion and dysuria with foul-smelling urine She has a past history of pseudomonal UTI in 2020, multiple mixed faizan normal growth since that time Will treat empirically with Rocephin, follow for UA/UC. PCN allergy, has gotten keflex/cefepime in the past without rxn CKD Creatinine 0.73 on admission, estimated GFR 80 Renally dose medications, trend daily Chronic functional decline Case management consulted DVT prophylaxis: Dose reduced Lovenox Diet: Fluid restriction heart healthy CODE STATUS: Full code Disposition: Medical surgical (2) Neutropenia: (3) CKD (chronic kidney disease): (4) GERD without esophagitis: (5) Major neurocognitive disorder: History of Present Illness Primary Care Provider: Yamil Zimmerman MD Nando Jon is a 76-year-old female with a past medical history of hyponatremia, depression/anxiety, CKD, chronic cerebral ischemia, migraine without aura, GERD, short-term memory loss recently discharged 09/19/2022 following an admission for fall with CVA work-up showing normal MRI Patient is limited care at home and lives in a personal group home. Patient was discharged home with increased care with family and support of 24/7 caregivers in the home at last discharge. Patient was brought to the ER for concerns of "not acting herself "and seeming to have worsened confusion. "On ER assessment she continues to be leukopenic, with stable anemia, and normal platelet counts. Creatinine 0.7 on admission she has no transaminitis and chest x-rays without acute findings. No UTI symptoms. Patient is noted to have a progressive downtrending sodium, and with concerns for acute worsening of mental status has been recommended for admission for evaluation and treatment of hyponatremia. At bedside history is somewhat limited by short-term dementia, patient is nondistressed reports she is not sure if she is having urinary pain but does not have any at time of hospitalist evaluation. She knows she is in the hospital, is not sure which one. Is not oriented to year. Is oriented to name. She reports she is not sure if she has had any fever, chills, sweats. She denies fever, chills, sweats, chest pain, chest pressure, difficulty breathing at time of assessment. Discussed with pts son Adebayo. Reprots aid was going to come in with her but was some confusion regarding this and was not present Son Adebayo reports she has been seen several times with some concerns for dehydration and once for falls. CVA eval was normal. Has a history of exacerbated delirium while in the hospital Today was lethargic, fatigued, and with some difficulty eating. Had + difficulty urinating with a strong odor today and seemed more confused than normal the last day and was recommended for treatment of symptomatic UTI Lives at [facility] on [address] with aids 12 horus per day 7 days a week, but is not 24 hour care. Generall does OK in the home environment, but seems much worse and more confused than normal since returning home this time. Has not waxed and waned, seems to be more consistently confused in the last 2-3 days. Also complained of pain in the L hip. Family is working on looking into assisted living, found many facilities substandard. Have had long discussions with case workers regarding bes tplacement options for her at the time. History is limited from patient, medical history/medications/surgical history/family history/allergies reviewed in the chart and with son by phone. Patient is full code Allergies Allergy/AdvReac Type Severity Reaction Status Date / Time bee venom protein (honey bee) Allergy Severe ANAPHYLAXIS Verified 09/23/22 17:29 hornet venom Allergy Severe ANAPHYLAXIS Verified 09/23/22 17:29 Sulfa (Sulfonamide Allergy Severe Shortness Verified 09/23/22 17:29 Antibiotics) of Breath sulfamethoxazole Allergy Severe SHORTNESS Verified 09/23/22 17:29 OF BREATH trimethoprim Allergy Severe SHORTNESS Verified 09/23/22 17:29 OF BREATH blue dye Allergy Unknown UNKNOWN Verified 09/23/22 17:29 duloxetine Allergy Unknown UNKNOWN Verified 09/23/22 17:29 erythromycin base Allergy Unknown UNKNOWN Verified 09/23/22 17:29 Iodinated Contrast Media Allergy Unknown UNKNOWN Verified 09/23/22 17:29 naproxen Allergy Unknown Unknown Verified 09/23/22 17:29 NSAIDS (Non-Steroidal Allergy Unknown UNKNOWN Verified 09/23/22 17:29 Anti-Inflamma Penicillins Allergy Unknown Unknown Verified 09/23/22 17:29 quetiapine Allergy Unknown UNKNOWN Verified 09/23/22 17:29 shellfish derived Allergy Unknown UNKNOWN Verified 09/23/22 17:29 venlafaxine Allergy Unknown UNKNOWN Verified 09/23/22 17:29 zolpidem Allergy Unknown UNKNOWN Verified 09/23/22 17:29 Home Medications Medication Instructions Recorded Confirmed Type multivitamin 1 tab PO DAILY 02/22/20 09/23/22 History acetaminophen 650 mg 650 mg PO Q8H PRN Pain #30 tabs 08/29/22 09/23/22 Rx tablet,extended release aspirin 81 mg tablet,delayed 81 mg PO DAILY #90 tabs 08/29/22 09/23/22 Rx release simvastatin 20 mg tablet 20 mg PO DAILY #90 tabs 08/29/22 09/23/22 Rx fluoxetine 40 mg capsule 40 mg PO DAILY 09/13/22 09/23/22 History sodium chloride 1,000 mg soluble 1,000 mg PO BID #60 tabs 09/19/22 09/23/22 Rx tablet Past Med/Surg History Medical History Anxiety Asthma Contusion of left forearm Depression Facial laceration Facial laceration Metabolic acidosis with normal anion gap and failure of bicarbonate regeneration Right hip pain Right lumbar radiculitis Short-term memory loss Surgical History S/P hysterectomy with oophorectomy S/P shoulder surgery S/P total knee arthroplasty Family History Mother Congestive heart failure Diabetes Heart disease Other Family history non-contributory Denies family history of Ovarian cancer Prostate cancer Myocardial infarction Breast cancer Colorectal cancer Social History Smoking Status: Never smoker Second Hand Exposure: No; Do You Dip or Chew Tobacco: No; Hx Alcohol Use: Yes Alcohol type: wine Alcohol Intake Frequency: Monthly or Less Hx Substance Use: No Preferred Language: Kinyarwanda Communication Ability: Effective Hearing Ability: Normal 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 HEENT: Atraumatic, normocephalic. Vision/hearing intact. Poor dentition. No evidence of dental abscess/purulence Pulm: CTAB A&P. -wheezes, -rales, -rhonchi. Symmetrical chest rise. No increased work of breathing. No respiratory distress. Cardiac: RRR, -mrg. Radial pulses intact and symmetrical. Abdominal: Nontender, nondistended, soft. BS present. Extremities: Moves all extremities equally, sensation intact to soft touch in extremities bilaterally. Strength testing limited by engagement, but grossly intact Results & Data Results & Data Vital Signs (Past 12 Hours) Vital Signs Temp Pulse Pulse Resp BP BP Pulse Ox 09/23/22 16:58 61 17 121/69 99 09/23/22 16:40 60 09/23/22 14:43 36.5 C 68 18 129/71 97 O2 Del Method 09/23/22 16:58 Room Air 09/23/22 16:40 09/23/22 14:43 Room Air PG Care Time/CCT Total # of Minutes Spent Total Time Spent with Patient: Total time spent is greater than 50% in coordination of care (as documented) at patient's floor/unit and/or counseling patient: Coding Level of Care Code 10675 INT INP/OBS CARE 2/55MIN Diagnoses Hyponatremia E87.1 Neutropenia D70.9 CKD (chronic kidney disease) N18.9 GERD without esophagitis K21.9 Major neurocognitive disorder F01.50
[2022-09-23] MEDS ORDERED: SODIUM CHLORIDE 0.9% 1000ML 1,000 ML IV ONE (18:29)
[2022-09-23 22:44] LABS: BUN Creatinine Ratio 10.8 (10-20); Calcium 8.2 mg/dl (8.6-10.3); Creatinine Clr Calc Pharmacy 57.8 ml/min; Est GFR (African American) 91.9 ml/min; Est GFR (Non-African American) 79.3 ml/min; Potassium 3.4 mmol/L (3.5-5.1)
[2022-09-24] MEDS: cefTRIAXone SODIUM 1,000 MG in DEXTROSE 5% AD-VAN 50 ML IV SCH ×2 (00:19→21:35)
[2022-09-24] MEDS: SODIUM CHLORIDE 1 GM TABLET PO SCH ×3 (00:20→20:43)
[2022-09-24 02:27] LABS: Calcium 8.2 mg/dl (8.6-10.3); Creatinine Clr Calc Pharmacy 61.1 ml/min; Est GFR (African American) 98.2 ml/min; Est GFR (Non-African American) 84.8 ml/min; Potassium 3.2 mmol/L (3.5-5.1)
[2022-09-24 02:41] LABS: Appearance Urine Clear (Clear); Bilirubin Urine Negative (Negative); Blood Urine Negative (Negative); Color Urine Yellow; Glucose Urine UA Negative (Negative); Ketones Urine Negative (Negative); Leukocyte Esterase Urine Negative (Negative); Nitrite Urine Negative (Negative); Protein Urine Negative (Negative); Specific Gravity Urine 1.006 (1.000-1.030); Urobilinogen Urine Negative (Negative); pH Urine 7.5 (4.5-7.5)
[2022-09-24 07:24] LABS: Calcium 8.6 mg/dl (8.6-10.3); Creatinine Clr Calc Pharmacy 63.8 ml/min; Est GFR (African American) 99.7 ml/min; Potassium 3.3 mmol/L (3.5-5.1)
[2022-09-24] MEDS: ASPIRIN 81 MG ECTAB PO SCH (08:19)
[2022-09-24] MEDS: SIMVASTATIN 20 MG TAB PO SCH (08:19)
[2022-09-24] MEDS: MULTIVITAMIN TAB PO SCH (08:19)
[2022-09-24 08:21] LABS: BUN Creatinine Ratio 8.8 (10-20); Calcium 8.7 mg/dl (8.6-10.3); Creatinine Clr Calc Pharmacy 62.9 ml/min; Est GFR (African American) 99.2 ml/min; Est GFR (Non-African American) 85.6 ml/min; Potassium 3.4 mmol/L (3.5-5.1)
[2022-09-24 14:39] LABS: BUN Creatinine Ratio 8.7 (10-20); Calcium 8.3 mg/dl (8.6-10.3); Creatinine Clr Calc Pharmacy 46.5 ml/min; Est GFR (African American) 70.6 ml/min; Est GFR (Non-African American) 60.9 ml/min; Potassium 3.3 mmol/L (3.5-5.1)
[2022-09-24 18:35] LABS: BUN Creatinine Ratio 13.7 (10-20); Calcium 8.2 mg/dl (8.6-10.3); Creatinine Clr Calc Pharmacy 41.9 ml/min; Est GFR (African American) 62.3 ml/min; Est GFR (Non-African American) 53.8 ml/min; Potassium 3.7 mmol/L (3.5-5.1)
--- NOTE | 2022-09-24 22:59 | Hospitalist Progress Note ---
Date of Service September 24, 2022 Assessment & Plan (1) Hyponatremia: Plan: Acute on chronic confusion.? UTI versus hyponatremia versus chronic progressive dementia with delirium Patient with history of vascular dementia, progressive typically with short- term memory impairment Acutely worsened per personal-custodial report more than baseline. Patient has had very foul-smelling urine and dysuria for 2 days Patient with progressively downtrending hyponatremia, last sodium normal 08/2022 For hyponatremia evaluation we will continue salt tablets, hold fluoxetine, and obtain urine studies and serum osmolality Appears euvolemic on assessment Urine studies pending Urine precautions BMP every 4 hours. If sodium downtrends under 120 transfer to telemetry misael place on fluid restriction, continue sodium tablets, increase dietary intake #UTI Patient has been unable to provide sample by time of hospitalist assessment, but patient and family do endorse 2 days of fatigue acute confusion and dysuria with foul-smelling urine She has a past history of pseudomonal UTI in 2020, multiple mixed faizan normal growth since that time Will treat empirically with Rocephin, follow for UA/UC. PCN allergy, has gotten keflex/cefepime in the past without rxn CKD Creatinine 0.73 on admission, estimated GFR 80 Renally dose medications, trend daily Chronic functional decline Case management consulted DVT prophylaxis: Dose reduced Lovenox Diet: Fluid restriction heart healthy CODE STATUS: Full code Disposition: Medical surgical (2) Neutropenia: (3) CKD (chronic kidney disease): (4) GERD without esophagitis: (5) Major neurocognitive disorder: Admission and Anticipated Discharge Date Admission Date: September 23, 2022 Subjective 76 yo female is a poor historian Review of Systems Review of Systems: All systems reviewed & are unremarkable except as noted in HPI & below Physical Exam Physical Exam: General: Not oriented to place, year, or age. HEENT: Atraumatic, normocephalic. Vision/hearing intact. Poor dentition. No evidence of dental abscess/purulence Pulm: CTAB A&P. -wheezes, -rales, -rhonchi. Symmetrical chest rise. No increased work of breathing. No respiratory distress. Cardiac: RRR, -mrg. Radial pulses intact and symmetrical. Abdominal: Nontender, nondistended, soft. BS present. Extremities: Moves all extremities equally, sensation intact to soft touch in extremities bilaterally. Strength testing limited by engagement, but grossly intact Results & Data Results & Data Vital Signs (Past 12 Hours) Vital Signs Temp Pulse Resp BP Pulse Ox O2 Del Method 09/24/22 20:19 37.2 C 65 18 123/72 98 Room Air 09/24/22 14:51 37.3 C 65 16 119/71 98 Room Air PG Care Time/CCT Total # of Minutes Spent Total Time Spent with Patient: Total time spent is greater than 50% in coordination of care (as documented) at patient's floor/unit and/or counseling patient: Coding Level of Care Code 80713 SUB INP/OBS CARE 2/35MIN Diagnoses Hyponatremia E87.1 Neutropenia D70.9 CKD (chronic kidney disease) N18.9 GERD without esophagitis K21.9 Major neurocognitive disorder F01.50
[2022-09-25 07:04] LABS: Calcium 8.9 mg/dl (8.6-10.3); Est GFR (African American) 73.5 ml/min; Est GFR (Non-African American) 63.4 ml/min; Potassium 3.6 mmol/L (3.5-5.1)
[2022-09-25] MEDS: ASPIRIN 81 MG ECTAB PO SCH (08:47)
[2022-09-25] MEDS: MULTIVITAMIN TAB PO SCH (08:47)
[2022-09-25] MEDS: SIMVASTATIN 20 MG TAB PO SCH (08:47)
[2022-09-25] MEDS: SODIUM CHLORIDE 1 GM TABLET PO SCH ×2 (08:48→21:04)
--- NOTE | 2022-09-25 21:19 | Hospitalist Progress Note ---
Date of Service September 25, 2022 Assessment & Plan (1) Hyponatremia: Plan: Acute on chronic confusion.? UTI versus hyponatremia versus chronic progressive dementia with delirium Patient with history of vascular dementia, progressive typically with short- term memory impairment Acutely worsened per personal-detention report more than baseline. Patient has had very foul-smelling urine and dysuria for 2 days Patient with progressively downtrending hyponatremia, last sodium normal 08/2022 For hyponatremia evaluation we will continue salt tablets, hold fluoxetine, and obtain urine studies and serum osmolality Appears euvolemic on assessment Urine studies pending Urine precautions misael place on fluid restriction, continue sodium tablets, increase dietary intake -sodium improved, will continue to monitor. #UTI Patient has been unable to provide sample by time of hospitalist assessment, but patient and family do endorse 2 days of fatigue acute confusion and dysuria with foul-smelling urine She has a past history of pseudomonal UTI in 2020, multiple mixed faizan normal growth since that time Will treat empirically with Rocephin, follow for UA/UC. PCN allergy, has gotten keflex/cefepime in the past without rxn CKD Creatinine 0.73 on admission, estimated GFR 80 Renally dose medications, trend daily Chronic functional decline Case management consulted DVT prophylaxis: Dose reduced Lovenox Diet: Fluid restriction heart healthy CODE STATUS: Full code Disposition: Medical surgical (2) Neutropenia: (3) CKD (chronic kidney disease): (4) GERD without esophagitis: (5) Major neurocognitive disorder: Admission and Anticipated Discharge Date Admission Date: September 23, 2022 Subjective 76 yo female is a poor historian Review of Systems Review of Systems: All systems reviewed & are unremarkable except as noted in HPI & below Physical Exam Physical Exam: General: Not oriented to place, year, or age. HEENT: Atraumatic, normocephalic. Vision/hearing intact. Poor dentition. No evidence of dental abscess/purulence Pulm: CTAB A&P. -wheezes, -rales, -rhonchi. Symmetrical chest rise. No increased work of breathing. No respiratory distress. Cardiac: RRR, -mrg. Radial pulses intact and symmetrical. Abdominal: Nontender, nondistended, soft. BS present. Extremities: Moves all extremities equally, sensation intact to soft touch in extremities bilaterally. Strength testing limited by engagement, but grossly intact Results & Data Results & Data Vital Signs (Past 12 Hours) Vital Signs Temp Pulse Resp BP Pulse Ox O2 Del Method 09/25/22 15:37 37.2 C 61 16 133/74 97 Room Air PG Care Time/CCT Total # of Minutes Spent Total Time Spent with Patient: Total time spent is greater than 50% in coordination of care (as documented) at patient's floor/unit and/or counseling patient: Coding Level of Care Code 90341 SUB INP/OBS CARE 2/35MIN Diagnoses Hyponatremia E87.1 Neutropenia D70.9 CKD (chronic kidney disease) N18.9 GERD without esophagitis K21.9 Major neurocognitive disorder F01.50
[2022-09-25] MEDS: cefTRIAXone SODIUM 1,000 MG in DEXTROSE 5% AD-VAN 50 ML IV SCH (23:36)
[2022-09-26] MEDS: SIMVASTATIN 20 MG TAB PO SCH (08:58)
[2022-09-26] MEDS: ASPIRIN 81 MG ECTAB PO SCH (08:58)
[2022-09-26] MEDS: MULTIVITAMIN TAB PO SCH (08:58)
[2022-09-26] MEDS: SODIUM CHLORIDE 1 GM TABLET PO SCH ×2 (08:58→19:51)
[2022-09-26] MEDS: cefTRIAXone SODIUM 1,000 MG in DEXTROSE 5% AD-VAN 50 ML IV SCH (21:19)
--- NOTE | 2022-09-26 23:09 | Hospitalist Progress Note ---
Date of Service September 26, 2022 Assessment & Plan (1) Hyponatremia: Plan: Acute on chronic confusion.? UTI versus hyponatremia versus chronic progressive dementia with delirium Patient with history of vascular dementia, progressive typically with short- term memory impairment Acutely worsened per [facility] report more than baseline. Patient has had very foul-smelling urine and dysuria for 2 days Patient with progressively downtrending hyponatremia, last sodium normal 08/2022 For hyponatremia evaluation we will continue salt tablets, hold fluoxetine, and obtain urine studies and serum osmolality Appears euvolemic on assessment Urine studies pending Urine precautions misael place on fluid restriction, continue sodium tablets, increase dietary intake -sodium improved, will continue to monitor. will repeat sodium in AM> #UTI Patient has been unable to provide sample by time of hospitalist assessment, but patient and family do endorse 2 days of fatigue acute confusion and dysuria with foul-smelling urine She has a past history of pseudomonal UTI in 2020, multiple mixed faizan normal growth since that time Will treat empirically with Rocephin, follow for UA/UC. PCN allergy, has gotten keflex/cefepime in the past without rxn CKD Creatinine 0.73 on admission, estimated GFR 80 Renally dose medications, trend daily Chronic functional decline Case management consulted DVT prophylaxis: Dose reduced Lovenox Diet: Fluid restriction heart healthy CODE STATUS: Full code Disposition: Medical surgical (2) Neutropenia: (3) CKD (chronic kidney disease): (4) GERD without esophagitis: (5) Major neurocognitive disorder: Admission and Anticipated Discharge Date Admission Date: September 23, 2022 Subjective 76 yo female is a poor historian, verbalizes no complaints. Review of Systems Review of Systems: All systems reviewed & are unremarkable except as noted in HPI & below Physical Exam Physical Exam: General: Not oriented to place, year, or age. HEENT: Atraumatic, normocephalic. Vision/hearing intact. Poor dentition. No evidence of dental abscess/purulence Pulm: CTAB A&P. -wheezes, -rales, -rhonchi. Symmetrical chest rise. No increased work of breathing. No respiratory distress. Cardiac: RRR, -mrg. Radial pulses intact and symmetrical. Abdominal: Nontender, nondistended, soft. BS present. Extremities: Moves all extremities equally, sensation intact to soft touch in extremities bilaterally. Strength testing limited by engagement, but grossly intact Results & Data Results & Data Vital Signs (Past 12 Hours) Vital Signs Temp Pulse Resp BP Pulse Ox O2 Del Method 09/26/22 21:49 36.9 C 60 16 143/76 H 98 Room Air 09/26/22 14:59 36.7 C 64 15 128/68 98 Room Air PG Care Time/CCT Total # of Minutes Spent Total Time Spent with Patient: Total time spent is greater than 50% in coordination of care (as documented) at patient's floor/unit and/or counseling patient: Coding Level of Care Code 01892 SUB INP/OBS CARE 2/35MIN Diagnoses Hyponatremia E87.1 Neutropenia D70.9 CKD (chronic kidney disease) N18.9 GERD without esophagitis K21.9 Major neurocognitive disorder F01.50
[2022-09-27 07:55] LABS: Hematocrit (blood only) 32.9 % (37.0-47.0); Hemoglobin 11.2 g/dl (12.0-16.0); Mean Corpuscular Hemoglobin 28.3 pg (25.0-34.0); Mean Corpuscular Volume 83.1 fL (80.0-100.0); Mean Platelet Volume 8.7 fL (9.4-12.4); Platelet Count 200 K/uL (130-400); RDW Coefficient of Variation 14.4 % (11.5-14.5); RDW Standard Deviation 43.7 fL (36.4-46.3); Red Blood Count 3.96 M/uL (4.20-5.40)
[2022-09-27 08:15] LABS: BUN Creatinine Ratio 21.8 (10-20); Calcium 9.2 mg/dl (8.6-10.3); Creatinine Clr Calc Pharmacy 49.1 ml/min; Est GFR (African American) 75.5 ml/min; Est GFR (Non-African American) 65.2 ml/min; Potassium 3.6 mmol/L (3.5-5.1)
[2022-09-27] MEDS: ASPIRIN 81 MG ECTAB PO SCH (08:34)
[2022-09-27] MEDS: MULTIVITAMIN TAB PO SCH (08:34)
[2022-09-27] MEDS: SIMVASTATIN 20 MG TAB PO SCH (08:34)
[2022-09-27] MEDS: SODIUM CHLORIDE 1 GM TABLET PO SCH ×2 (08:34→19:57)
--- NOTE | 2022-09-27 21:38 | Hospitalist Progress Note ---
Date of Service September 27, 2022 Assessment & Plan (1) Hyponatremia: Plan: Acute on chronic confusion.? UTI versus hyponatremia versus chronic progressive dementia with delirium Patient with history of vascular dementia, progressive typically with short- term memory impairment Acutely worsened per personal-intermediate report more than baseline. Patient has had very foul-smelling urine and dysuria for 2 days Patient with progressively downtrending hyponatremia, last sodium normal 08/2022 For hyponatremia evaluation we will continue salt tablets, hold fluoxetine, and obtain urine studies and serum osmolality Appears euvolemic on assessment sodium improving. misael place on fluid restriction, continue sodium tablets, increase dietary intake -sodium improved, will continue to monitor. will repeat sodium in AM> #UTI Patient has been unable to provide sample by time of hospitalist assessment, but patient and family do endorse 2 days of fatigue acute confusion and dysuria with foul-smelling urine She has a past history of pseudomonal UTI in 2020, multiple mixed faizan normal growth since that time Will treat empirically with Rocephin, follow for UA/UC. PCN allergy, has gotten keflex/cefepime in the past without rxn -treatment completed CKD Creatinine 0.73 on admission, estimated GFR 80 Renally dose medications, trend daily Chronic functional decline Case management consulted DVT prophylaxis: Dose reduced Lovenox Diet: Fluid restriction heart healthy CODE STATUS: Full code Disposition: Medical surgical (2) Neutropenia: (3) CKD (chronic kidney disease): (4) GERD without esophagitis: (5) Major neurocognitive disorder: Admission and Anticipated Discharge Date Admission Date: September 23, 2022 Subjective 76 yo female reports no new symtpoms. Review of Systems Review of Systems: All systems reviewed & are unremarkable except as noted in HPI & below Physical Exam Physical Exam: General: Not oriented to place, year, or age. HEENT: Atraumatic, normocephalic. Vision/hearing intact. Poor dentition. No evidence of dental abscess/purulence Pulm: CTAB A&P. -wheezes, -rales, -rhonchi. Symmetrical chest rise. No increased work of breathing. No respiratory distress. Cardiac: RRR, -mrg. Radial pulses intact and symmetrical. Abdominal: Nontender, nondistended, soft. BS present. Extremities: Moves all extremities equally, sensation intact to soft touch in extremities bilaterally. Strength testing limited by engagement, but grossly intact Results & Data Results & Data Vital Signs (Past 12 Hours) Vital Signs Temp Pulse Resp BP Pulse Ox O2 Del Method 09/27/22 14:56 36.7 C 65 16 120/60 98 Room Air PG Care Time/CCT Total # of Minutes Spent Total Time Spent with Patient: Total time spent is greater than 50% in coordination of care (as documented) at patient's floor/unit and/or counseling patient: Coding Level of Care Code 77469 SUB INP/OBS CARE 2/35MIN Diagnoses Hyponatremia E87.1 Neutropenia D70.9 CKD (chronic kidney disease) N18.9 GERD without esophagitis K21.9 Major neurocognitive disorder F01.50
[2022-09-28] MEDS: SODIUM CHLORIDE 1 GM TABLET PO SCH ×2 (08:22→20:04)
[2022-09-28] MEDS: ASPIRIN 81 MG ECTAB PO SCH (08:23)
[2022-09-28] MEDS: SIMVASTATIN 20 MG TAB PO SCH (08:23)
[2022-09-28] MEDS: MULTIVITAMIN TAB PO SCH (08:23)
--- NOTE | 2022-09-28 23:07 | Hospitalist Progress Note ---
Date of Service September 28, 2022 Assessment & Plan (1) Hyponatremia: Plan: Acute on chronic confusion.? UTI versus hyponatremia versus chronic progressive dementia with delirium Patient with history of vascular dementia, progressive typically with short- term memory impairment Acutely worsened per personal-[facility] report more than baseline. Patient has had very foul-smelling urine and dysuria for 2 days Patient with progressively downtrending hyponatremia, last sodium normal 08/2022 For hyponatremia evaluation we will continue salt tablets, hold fluoxetine, and obtain urine studies and serum osmolality Appears euvolemic on assessment sodium improving. will place on fluid restriction, continue sodium tablets, increase dietary intake -sodium improved, will continue to monitor. #UTI Patient has been unable to provide sample by time of hospitalist assessment, but patient and family do endorse 2 days of fatigue acute confusion and dysuria with foul-smelling urine She has a past history of pseudomonal UTI in 2020, multiple mixed faizan normal growth since that time Will treat empirically with Rocephin, follow for UA/UC. PCN allergy, has gotten keflex/cefepime in the past without rxn -treatment completed. CKD Creatinine 0.73 on admission, estimated GFR 80 Renally dose medications, trend daily Chronic functional decline Case management consulted Metabolic encephalopathy 76 yo female with preexisting dementia, presenting with acute worsening of her baseline mental status. Na 122, suspected UTI with reported dysuria and foul smelling urine. Treatment: monitor BMP's q 4 hrs, NaCL tabs, hold fluoxetine, urine and serum osmolality, IV rocephin, 1L NSS bolus in ER Risk Factor(s): age, hyponatremia, suspected UTI, preexisting dementia. DVT prophylaxis: Dose reduced Lovenox Diet: Fluid restriction heart healthy CODE STATUS: Full code Disposition: Medical surgical (2) Neutropenia: (3) CKD (chronic kidney disease): (4) GERD without esophagitis: (5) Major neurocognitive disorder: Plan awaiting placement Admission and Anticipated Discharge Date Admission Date: September 23, 2022 Subjective Patient appears calm. Review of Systems Review of Systems: Unobtainable due to cognitive status Physical Exam Physical Exam: General: Not oriented to place, year, or age. HEENT: Atraumatic, normocephalic. Vision/hearing intact. Poor dentition. No evidence of dental abscess/purulence Extremities: Moves all extremities equally Results & Data Results & Data Vital Signs (Past 12 Hours) Vital Signs Temp Pulse Resp BP Pulse Ox O2 Del Method 09/28/22 21:11 36.9 C 68 16 112/56 L 96 Room Air 09/28/22 15:46 36.5 C 65 16 103/61 97 Room Air PG Care Time/CCT Total # of Minutes Spent Total Time Spent with Patient: Total time spent is greater than 50% in coordination of care (as documented) at patient's floor/unit and/or counseling patient: Coding Level of Care Code 83778 SUB INP/OBS CARE 2/35MIN Diagnoses Hyponatremia E87.1 Neutropenia D70.9 CKD (chronic kidney disease) N18.9 GERD without esophagitis K21.9 Major neurocognitive disorder F01.50
[2022-09-29] MEDS: ASPIRIN 81 MG ECTAB PO SCH (08:12)
[2022-09-29] MEDS: SODIUM CHLORIDE 1 GM TABLET PO SCH ×2 (08:12→20:10)
[2022-09-29] MEDS: SIMVASTATIN 20 MG TAB PO SCH (08:12)
[2022-09-29] MEDS: MULTIVITAMIN TAB PO SCH (08:13)
[2022-09-29 10:17] LABS: BUN Creatinine Ratio 26.1 (10-20); Calcium 8.7 mg/dl (8.6-10.3); Creatinine Clr Calc Pharmacy 44.5 ml/min; Est GFR (African American) 70.6 ml/min; Est GFR (Non-African American) 60.9 ml/min; Potassium 3.6 mmol/L (3.5-5.1)
--- NOTE | 2022-09-29 17:10 | Hospitalist Progress Note ---
Date of Service September 29, 2022 Assessment & Plan (1) Hyponatremia: Plan: Acute on chronic confusion.? Encephalopathy from UTI present on admission is ruled out encephalopathy likely from hyponatremia exacerbating baseline memory loss Patient with history of vascular dementia, progressive typically with short- term memory impairment For hyponatremia evaluation we will continue salt tablets, fluoxetine discontinued will place on fluid restriction, continue sodium tablets, increase dietary intake -sodium improved, will continue to monitor. CKD 3 Creatinine 0.73 on admission, estimated GFR 80 Chronic functional decline Case management consulted patient did have supportive care at home on the day she declined. Patient is now remanded to consider [facility] facility Metabolic encephalopathy resolved back to baseline DVT prophylaxis: Dose reduced Lovenox Diet: Fluid restriction heart healthy CODE STATUS: Full code (2) Neutropenia: (3) CKD (chronic kidney disease): (4) GERD without esophagitis: (5) Major neurocognitive disorder: Plan awaiting placement Admission and Anticipated Discharge Date Admission Date: September 23, 2022 Subjective Patient is at her typical confused baseline. I have taking care of the patient for many days over the last few months and she seems to have fairly progressive dementia. She is agreeable but has no focal complaints or problems. Her facial ecchymosis is greatly improved from her last admission Physical Exam Physical Exam: She is pleasant she is oriented to person and place but not date Card exam is regular lungs are clear abdomen NABS soft Results & Data Results & Data Vital Signs (Past 12 Hours) Vital Signs Temp Pulse Pulse Resp BP Pulse Ox O2 Del Method 09/29/22 15:59 98.2 F 64 16 125/71 99 Room Air 09/29/22 07:14 98.4 F 62 16 125/75 98 Room Air Laboratory Results Reviewed. PRP showing improved hyponatremia PG Care Time/CCT Total # of Minutes Spent Total Time Spent with Patient: Total time spent is greater than 50% in coordination of care (as documented) at patient's floor/unit and/or counseling patient: Coding Level of Care Code 00385 SUB INP/OBS CARE 2/35MIN Diagnoses Hyponatremia E87.1 Neutropenia D70.9 CKD (chronic kidney disease) N18.9 GERD without esophagitis K21.9 Major neurocognitive disorder F01.50
[2022-09-30] MEDS: SODIUM CHLORIDE 1 GM TABLET PO SCH (08:19)
[2022-09-30] MEDS: SIMVASTATIN 20 MG TAB PO SCH (08:19)
[2022-09-30] MEDS: MULTIVITAMIN TAB PO SCH (08:19)
[2022-09-30] MEDS: ASPIRIN 81 MG ECTAB PO SCH (08:19)
--- NOTE | 2022-09-30 17:17 | Discharge Summary ---
Date of Service September 30, 2022 Admission HPI Per Admitting Provider Nando Jon is a 76-year-old female with a past medical history of hyponatremia, depression/anxiety, CKD, chronic cerebral ischemia, migraine without aura, GERD, short-term memory loss recently discharged 09/19/2022 following an admission for fall with CVA work-up showing normal MRI Patient is limited care at home and lives in a personal [facility]. Patient was discharged home with increased care with family and support of 24/ caregivers in the home at last discharge. Patient was brought to the ER for concerns of "not acting herself "and seeming to have worsened confusion. "On ER assessment she continues to be leukopenic, with stable anemia, and normal platelet counts. Creatinine 0.7 on admission she has no transaminitis and chest x-rays without acute findings. No UTI symptoms. Patient is noted to have a progressive downtrending sodium, and with concerns for acute worsening of mental status has been recommended for admission for evaluation and treatment of hyponatremia. At bedside history is somewhat limited by short-term dementia, patient is nondistressed reports she is not sure if she is having urinary pain but does not have any at time of hospitalist evaluation. She knows she is in the hospital, is not sure which one. Is not oriented to year. Is oriented to name. She reports she is not sure if she has had any fever, chills, sweats. She denies fever, chills, sweats, chest pain, chest pressure, difficulty breathing at time of assessment. Discussed with pts son Adebayo. [facility] aid was going to come in with her but was some confusion regarding this and was not present Son Adebayo reports she has been seen several times with some concerns for dehydration and once for falls. CVA eval was normal. Has a history of exacerbated delirium while in the hospital Today was lethargic, fatigued, and with some difficulty eating. Had + difficulty urinating with a strong odor today and seemed more confused than normal the last day and was recommended for treatment of symptomatic UTI Lives at [facility] on [address] with aids 12 horus per day 7 days a week, but is not 24 hour care. Generall does OK in the home environment, but seems much worse and more confused than normal since returning home this time. Has not waxed and waned, seems to be more consistently confused in the last 2-3 days. Also complained of pain in the L hip. Family is working on looking into assisted living, found many facilities substandard. Have had long discussions with case workers regarding bes tplacement options for her at the time. History is limited from patient, medical history/medications/surgical history/family history/allergies reviewed in the chart and with son by phone. Patient is full code Principal Diagnosis Metabolic encephalopathy due to hyponatremia present on admission secondary to SIADH now resolved Discharge Exam Patient resides in his typical confused state has no focal physical complaints cardiac exam is regular lungs are clear Discharge Data Allergies Allergy/AdvReac Type Severity Reaction Status Date / Time bee venom protein (honey bee) Allergy Severe ANAPHYLAXIS Verified 09/23/22 17:29 hornet venom Allergy Severe ANAPHYLAXIS Verified 09/23/22 17:29 Sulfa (Sulfonamide Allergy Severe Shortness Verified 09/23/22 17:29 Antibiotics) of Breath sulfamethoxazole Allergy Severe SHORTNESS Verified 09/23/22 17:29 OF BREATH trimethoprim Allergy Severe SHORTNESS Verified 09/23/22 17:29 OF BREATH blue dye Allergy Unknown UNKNOWN Verified 09/23/22 17:29 duloxetine Allergy Unknown UNKNOWN Verified 09/23/22 17:29 erythromycin base Allergy Unknown UNKNOWN Verified 09/23/22 17:29 Iodinated Contrast Media Allergy Unknown UNKNOWN Verified 09/23/22 17:29 naproxen Allergy Unknown Unknown Verified 09/23/22 17:29 NSAIDS (Non-Steroidal Allergy Unknown UNKNOWN Verified 09/23/22 17:29 Anti-Inflamma Penicillins Allergy Unknown Unknown Verified 09/23/22 17:29 quetiapine Allergy Unknown UNKNOWN Verified 09/23/22 17:29 shellfish derived Allergy Unknown UNKNOWN Verified 09/23/22 17:29 venlafaxine Allergy Unknown UNKNOWN Verified 09/23/22 17:29 zolpidem Allergy Unknown UNKNOWN Verified 09/23/22 17:29 Consultations 09/23/22 16:46 ED Decision to Admit Stat Hospital Course (1) Hyponatremia: Acute on chronic confusion.? Encephalopathy from UTI present on admission is ruled out encephalopathy likely from hyponatremia exacerbating baseline memory loss Patient with history of vascular dementia, progressive typically with short- term memory impairment For hyponatremia evaluation we will continue salt tablets, fluoxetine discontinued Recommend avoiding low solute fluids continued salt supplementation and following sodium at long-term facility (2) CKD (chronic kidney disease): Chronic kidney disease stage III is stable (3) Major neurocognitive disorder: Progressive memory loss presents residing safely in her home situation Total Time Total Time Spent Total Time Spent (In Minutes): It required greater than 30 minutes to prepare this patient for discharge Discharge Plan Discharge Items Patient Disposition: Transfer Jail Fac Reason For Visit: HYPONATREMIA, ACUTE ON CHRONIC CONFUSION Discharge Diagnosis: encephalopathy from hyponatremia poa Activity: Resume your previous activity Non-emergency contact: Primary Care Provider Call non-emergency contact if: your symptoms worsen Follow-up/Referrals: Yamil Zimmerman MD [Primary Care Provider] - Diet: Regular Addtl Attending Provider Instructions: Patient is an intermittent issues with hyponatremia typically linked to water intake certainly important to keep her hydrated to avoid dehydration but watch straight water intake may consider alternative solutions Her dementia at baseline is fairly progressive she is pleasant does need supportive care and redirection at times Pending Studies at Discharge: No Stand-Alone Forms: [employer] Skilled Items Patient informed of condition?: Yes DNR: No Discharge Level of Care: Skilled Communicable Disease: No Discharge Prognosis: Stable Lines: None Urinary Catheter: No Medications and DC Order Prescriptions: Continued multivitamin Tablet 1 tab PO DAILY aspirin 81 mg tablet,delayed release (DR/EC) 81 mg PO DAILY Qty: 90 1RF acetaminophen 650 mg Tablet Extended Release 650 mg PO Q8H PRN (Reason: Pain) Qty: 30 0RF simvastatin 20 mg tablet 20 mg PO DAILY Qty: 90 3RF sodium chloride 1,000 mg tablet,soluble 1,000 mg PO BID Qty: 60 0RF Discontinued fluoxetine 40 mg capsule 40 mg PO DAILY Discharge Orders: Discharge Order (Routine); Ordered 09/30/22 Ordered By: Bradley Mclain Admission Data Admit Date/Time: 09/23/22 17:32 Attending Provider: Bradley Mclain Admit Provider: Bob Fair Primary Care Provider: Yamil Zimmerman V. Other Providers: Bob Fair ; Fernanda Ugalde ; [place] Other Interventions: Discharge Summary Assessment (RN) Last Done: 09/30/22 10:14 Coding Level of Care Code 33756 INP/OBS DISCH >30 MIN Diagnoses Hyponatremia E87.1 CKD (chronic kidney disease) N18.9 Major neurocognitive disorder F01.50
== END 2022-09-30 12:24 | DRG 643 ==
LOC: ED 14:38 → SUATTDRO 17:32 → 3W 17:32

== ENCOUNTER 2024-05-19 12:31 | Inpatient (IN) ==
--- NOTE | 2024-05-19 12:49 | Emergency Department Note ---
Impression & Plan Syncope and collapse ED Provider Note HISTORY OF PRESENT ILLNESS: Patient is a 78-year-old female presenting after syncopal episode. Patient reportedly was seated at the table when she suddenly laid her head down on the table and was "unresponsive" for about 5 minutes. No reported seizure-like activity. Patient did not fall to the ground. Patient is amnestic to the event. Patient does have a history of dementia and does not supply any meaningful history. Denies any chest pain or shortness of breath. Denies abdominal pain, nausea or vomiting. ROS: as above PHYSICAL EXAM: Constitutional: Patient appears in no acute distress. HENT: Head: Normocephalic and atraumatic. Eyes: EOMI, PERRL Mouth/Throat: Mucous membranes moist. Neck: Trachea midline. Neck supple. Cardiovascular: RRR, No murmurs, rubs or gallops. Intact distal pulses. Pulmonary/Chest: No respiratory distress. Breath sounds clear and equal bilaterally. No wheezes or rales. Abdominal: Abdomen soft, no tenderness, rebound or guarding. Musculoskeletal: No edema, tenderness or deformity noted. Skin: Warm and dry. No rash, erythema, pallor or cyanosis Psychiatric: Appropriate mood and affect for situation. Neurological: Alert and keenly responsive. CN II-XII grossly intact, moving all extremities equally and fully. MDM: - Vitals signs stable. - History obtained via EMS, given patient's dementia. History as above. - Chronic conditions affecting care: HTN - Differential diagnoses include, but are not limited to: CVA; intracranial hemorrhage; ACS; dysrhythmia; electrolyte abnormality - Order placed for continuous cardiac monitoring. At this time, monitor showed rate of 62 bpm with normal sinus rhythm, per my interpretation. - External medical records reviewed. - EKG interpreted by myself showed normal sinus rhythm. Rate 65 bpm. QT 400. No acute ischemic changes. - Laboratory workup interpreted by myself showed leukopenia (WBC 3.25); normal PT/INR; slight hyponatremia (Na 135); normal troponin; normal lipase; elevated TSH but normal T4 - CXR negative for pneumonia, per my interpretation - Viral respiratory panel negative - CT head wo contrast showed right internal capsule hypodensity which may be an age-indeterminate infarct. - Patient has no focal neurological deficits on examination. She does not give any meaningful history given her history of dementia. However, unclear etiology for her syncopal episode at this time. Will admit for further workup of the patient's CT head findings and further cardiac workup. - Discussion was had with director case management about patient's case and need for admission - Hospitalist consulted for admission - [facility] ASSESSMENT AND PLAN: Diagnosis: Syncope and collapse Plan: Admit Past Med/Surg History Problem List (Updated 05/19/24 @ 15:48 by Juhi Mathur MD) Syncope and collapse (Acute) Social History Smoking Status: Unknown if ever smoked Feels Safe at Home: Yes Results & Data (ED) Vital Signs Vital Signs - 24 hr 05/19/24 12:49 05/19/24 12:49 05/19/24 13:29 Temperature 36.5 C Temperature Source Oral Pulse Rate 67 67 Pulse Rate [Apical] Pulse Rhythm Pulse Rhythm [Apical] Pulse Strength [Apical] Respiratory Rate 16 Respiratory Effort / Characteristics Non-Labored Spontaneous Respiratory Depth Normal Respiratory Pattern Blood Pressure 113/67 Blood Pressure [Left Arm] Blood Pressure Mean 82 Blood Pressure Mean [Left Arm] Blood Pressure Position [Left Arm] Pulse Oximetry 100 98 Oxygen Delivery Method Room Air Sepsis Recent Fever Within 48 Hours No Sepsis New/Unexplained Change in Mental Status No Sepsis Action Taken by Nursing No Action Required 05/19/24 13:29 05/19/24 14:31 Temperature Temperature Source Pulse Rate 90 Pulse Rate [Apical] 61 Pulse Rhythm Regular Pulse Rhythm [Apical] Regular Pulse Strength [Apical] Normal Respiratory Rate 20 16 Respiratory Effort / Characteristics Non-Labored Spontaneous Respiratory Depth Normal Respiratory Pattern Regular Blood Pressure Blood Pressure [Left Arm] 107/62 Blood Pressure Mean Blood Pressure Mean [Left Arm] 77 Blood Pressure Position [Left Arm] Semi-fowlers Pulse Oximetry 98 100 Oxygen Delivery Method Room Air Room Air Sepsis Recent Fever Within 48 Hours Sepsis New/Unexplained Change in Mental Status Sepsis Action Taken by Nursing Laboratory Data 05/19/24 12:45 05/19/24 12:45 Lab Results 05/19/24 Range/Units 12:45 WBC 3.25 L (4.8-10.8) K/ul RBC 4.02 L (4.20-5.40) M/uL Hgb 11.4 L (12.0-16.0) g/dl Hct 35.8 L (37.0-47.0) % MCV 89.1 (80.0-100.0) fL MCH 28.4 (25.0-34.0) pg MCHC 31.8 L (32.0-36.0) g/dL RDW Std Deviation 43.5 (36.4-46.3) fL RDW Coeff of Alycia 13.2 (11.5-14.5) % Plt Count 181 (130-400) K/uL MPV 9.7 (9.4-12.4) fL Immature Gran % (Auto) 0.3 % Neut % (Auto) 66.2 % Lymph % (Auto) 20.0 % [place] % (Auto) 9.2 % Eos % (Auto) 3.7 % Baso % (Auto) 0.6 % Neut # (Auto) 2.15 (1.40-6.50) K/uL Lymph # (Auto) 0.65 L (1.20-3.40) K/uL [place] # (Auto) 0.30 (0.11-0.59) K/uL Eos # (Auto) 0.12 (0.00-0.50) K/uL Baso # (Auto) 0.02 (0.00-0.20) K/uL Immature Gran # (Auto) 0.01 (0.01-0.20) K/uL PT 10.9 (9.0-12.0) Seconds INR 1.0 (0.9-1.1) Sodium 135 L (136-145) mmol/L Potassium 3.8 (3.5-5.1) mmol/L Chloride 104 (98-107) mmol/L Carbon Dioxide 26 (21-32) mmol/L Anion Gap 5 (3-11) BUN 21 (6-23) mg/dl Creatinine 1.10 (0.6-1.2) mg/dl Est Cr Clr Drug Dosing 41.7 ml/min eGFR 51.75 BUN/Creatinine Ratio 19.1 (10-20) Glucose 103 H (70-99(Fasting)) mg/dl Calcium 9.4 (8.6-10.3) mg/dl Magnesium 2.0 (1.7-2.4) mg/dl Total Bilirubin 0.8 (0.2-1.0) mg/dl AST 23 (13-39) U/L ALT 16 (7-52) U/L Alkaline Phosphatase 87 (34-104) U/L Troponin I High Sens 3.6 (0-14) pg/ml Total Protein 7.9 (6.0-8.3) gm/dl Albumin 4.2 (3.4-5.0) gm/dl Globulin 3.7 (2.5-4.0) gm/dl Albumin/Globulin Ratio 1.1 (0.9-2) Lipase 23 (11-82) U/L TSH 4.891 H (0.300-4.500) uIu/ml Free T4 0.92 (0.61-1.60) ng/dl Adenovirus (PCR) Not Detected (NotDetected) B. pertussis DNA (PCR) Not Detected (NotDetected) B.parapertussis DNA PCR Not Detected (NotDetected) C. pneumoniae DNA (PCR) Not Detected (NotDetected) Coronavirus OC43 (PCR) Not Detected (NotDetected) Coronavirus HKU1 (PCR) Not Detected (NotDetected) Coronavirus 229E (PCR) Not Detected (NotDetected) SARS-CoV-2 (PCR) Not Detected (NotDetected) Coronavirus NL63 (PCR) Not Detected (NotDetected) Human Metapneumovir PCR Not Detected (NotDetected) Influenza Type A (PCR) Not Detected (NotDetected) Influenza Type B (PCR) Not Detected (NotDetected) M. pneumoniae (PCR) Not Detected (NotDetected) Parainfluenza 1 (PCR) Not Detected (NotDetected) Parainfluenza 2 (PCR) Not Detected (NotDetected) Parainfluenza 3 (PCR) Not Detected (NotDetected) Parainfluenza 4 (PCR) Not Detected (NotDetected) RSV (PCR) Not Detected (NotDetected) Entero/Rhino (PCR) Not Detected (NotDetected) Administered Medications Discontinued Medications Acetaminophen (Ofirmev) 1,000 mg in 100 mls @ 400 mls/hr IV NOW STA Stop: 05/19/24 13:41 Last Infusion: 05/19/24 13:59 Dose: Infused Documented By: Admin: 05/19/24 13:39 Dose: 400 mls/hr Documented By: MS Imaging Data Radiologist's Impression: Head CT 05/19/24 12:49 CT head/brain wo con CLINICAL HISTORY: syncope Technique: Contiguous axial CT images of the head were acquired from the base of the skull to the vertex without intravenous contrast administration. Images were viewed in brain, subdural and bone windows. Automated dose lowering techniques and/or adjustment according to patient size were utilized for this exam. Comparison: None available at the time of this dictation. Findings: Areas of decreased attenuation are present in the periventricular and subcortical white matter bilaterally consistent with small vessel ischemic disease. Generalized cerebral volume loss with commensurate enlargement of the ventricles, sulci, and cisterns is also present. There is a hypodensity in the anterior internal capsule on the right. Imaged portions of the paranasal sinuses and mastoid air cells are clear. The orbits appear normal. There are no acute fractures of the calvaria or scalp swelling. Impression: Right internal capsule hypodensity is seen which may represent an age- indeterminate infarct. If further evaluation is desired, MRI can be performed. No evidence of hemorrhage. ACT 112: Negative or not required by law. Electronically signed by: Jose Tipton M.D. 05/19/2024 1:08 PM Hip/Pelvis X-Ray 05/19/24 13:27 EXAM: Radiographs of the Right Hip 3 Views INDICATION: Pain. TECHNIQUE: Front view pelvis and AP and frog leg lateral views of the right hip. COMPARISON: No relevant prior studies available. FINDINGS: Limitations: None. Bones/joints: There is severe narrowing and hypertrophic change of the right hip with large subchondral geode in the femoral head which otherwise appears normal in shape. There is mild to moderate narrowing and hypertrophic change of the left acetabular joint space. No fracture or dislocation. Soft tissues: No abnormality noted. No radiopaque foreign body noted. IMPRESSION: Severe primary osteoarthritis of the right hip. No acute abnormality identified. ACT 112: Negative or not required by law. Electronically signed by Radha Vegas 05-19-2024 2:08 PM Discharge Plan Visit Data Chief Complaint: Syncope Stated Complaint: syncope ED Provider: Juhi Mathur Discharge Problem: Syncope and collapse Forms Stand Alone Forms: My [facility] Referrals Referrals: PCP,NO [Physician] -
[2024-05-19 13:09] LABS: Basophils # (auto) 0.02 K/uL (0.00-0.20); Basophils % (auto) 0.6 %; Eosinophils # (auto) 0.12 K/uL (0.00-0.50); Eosinophils % (auto) 3.7 %; Hematocrit (blood only) 35.8 % (37.0-47.0); Hemoglobin 11.4 g/dl (12.0-16.0); Immature Granulocytes # (auto) 0.01 K/uL (0.01-0.20); Immature Granulocytes % (auto) 0.3 %; Lymphocytes # (auto) 0.65 K/uL (1.20-3.40); Mean Corpuscular Hemoglobin 28.4 pg (25.0-34.0); Mean Corpuscular Hgb Conc 31.8 g/dL (32.0-36.0); Mean Corpuscular Volume 89.1 fL (80.0-100.0); Mean Platelet Volume 9.7 fL (9.4-12.4); Monocytes % (auto) 9.2 %; Neutrophils # (auto) 2.15 K/uL (1.40-6.50); Neutrophils % (auto) 66.2 %; Platelet Count 181 K/uL (130-400); RDW Coefficient of Variation 13.2 % (11.5-14.5); RDW Standard Deviation 43.5 fL (36.4-46.3); Red Blood Count 4.02 M/uL (4.20-5.40); White Blood Count 3.25 K/ul (4.8-10.8)
--- NOTE | 2024-05-19 13:09 | CT Scan Report ---
CT head/brain wo con CLINICAL HISTORY: syncope Technique: Contiguous axial CT images of the head were acquired from the base of the skull to the partha candace without intravenous contrast administration. Images were viewed in brain, subdural and bone [facility]. Automated dose lowering techniques and/or adjustment according to patient size were utilized for this exam. Comparison: None available at the time of this dictation. Findings: Areas of decreased attenuation are present in the periventricular and subcortical white matter bilate rally consistent with small vessel ischemic disease. Generalized cerebral volume loss with commensura te enlargement of the ventricles, sulci, and cisterns is also present. There is a hypodensity in the anterior internal capsule on the right. Imaged portions of the paranasal sinuses and mastoid air cells are clear. The orbits appear normal. There are no acute fractures of the calvaria or scalp swelling. Impression: Right internal capsule hypodensity is seen which may represent an age-indeterminate infarct. If furth er evaluation is desired, MRI can be performed. No evidence of hemorrhage. ACT 112: Negative or not required by law. Electronically signed by: Jose Tipton M.D. 05/19/2024 1:08 PM
[2024-05-19 13:28] LABS: Albumin Globulin Ratio 1.1 (0.9-2); Albumin Level 4.2 gm/dl (3.4-5.0); BUN Creatinine Ratio 19.1 (10-20); Bilirubin,Total 0.8 mg/dl (0.2-1.0); Calcium 9.4 mg/dl (8.6-10.3); Creatinine Clr Calc Pharmacy 41.7 ml/min; Globulin 3.7 gm/dl (2.5-4.0); Potassium 3.8 mmol/L (3.5-5.1); Total Protein 7.9 gm/dl (6.0-8.3)
[2024-05-19 13:34] LABS: Troponin I High Sensitivity 3.6 pg/ml (0-14)
[2024-05-19 13:36] LABS: Prothrombin Time 10.9 Seconds (9.0-12.0)
[2024-05-19] MEDS: ACETAMINOPHEN 1,000 MG/100 ML VIAL IV STA (13:39)
[2024-05-19 13:44] LABS: Thyroid Stimulating Hormone 4.891 uIu/ml (0.300-4.500)
--- NOTE | 2024-05-19 14:08 | XRay Report ---
EXAM: Radiographs of the Right Hip 3 Views INDICATION: Pain. TECHNIQUE: Front view pelvis and AP and frog leg lateral views of the right hip. COMPARISON: No relevant prior studies available. FINDINGS: Limitations: None. Bones/joints: There is severe narrowing and hypertrophic change of the right hip with large subchondral geode in the femoral head which otherwise appears normal in shape. There is mild to moderate narrowing and hypertrophic change of the left acetabular joint space. No fracture or dislocation. Soft tissues: No abnormality noted. No radiopaque foreign body noted. IMPRESSION: Severe primary osteoarthritis of the right hip. No acute abnormality identified. ACT 112: Negative or not required by law. Electronically signed by Radha Vegas 05-19-2024 2:08 PM
[2024-05-19 14:19] LABS: T4 Free Thyroxine 0.92 ng/dl (0.61-1.60)
[2024-05-19 14:36] LABS: Adenovirus PCR Not Detected (NotDetected); Bordetella parapertussis PCR Not Detected (NotDetected); Bordetella pertussis PCR Not Detected (NotDetected); Chlamydia pneumoniae PCR Not Detected (NotDetected); Coronavirus 229E PCR Not Detected (NotDetected); Coronavirus CoV-2 (COVID19)PCR Not Detected (NotDetected); Coronavirus HKU1 PCR Not Detected (NotDetected); Coronavirus NL63 PCR Not Detected (NotDetected); Coronavirus OC43PCR Not Detected (NotDetected); Human Metapneumovirus PCR Not Detected (NotDetected); Influenza A PCR Not Detected (NotDetected); Influenza B PCR Not Detected (NotDetected); Mycoplasma pneumoniae PCR Not Detected (NotDetected); Parainfluenza Virus 1 PCR Not Detected (NotDetected); Parainfluenza Virus 2 PCR Not Detected (NotDetected); Parainfluenza Virus 3 PCR Not Detected (NotDetected); Parainfluenza Virus 4 PCR Not Detected (NotDetected); Respiratory Syncytial VirusPCR Not Detected (NotDetected); Rhinovirus/Enterovirus PCR Not Detected (NotDetected)
--- NOTE | 2024-05-19 17:11 | XRay Report ---
Chest radiograph, one view History: Syncope Comparison: None Findings: Single AP view of the chest performed. No focal consolidation or pleural effusion. No pneumothorax. There are nipple shadows present. The cardiomediastinal silhouette is within normal limits. Normal pulmonary vascularity. No evidence for lymphadenopathy. No visualized bony or soft tissue abnormality. Impression: Normal chest radiograph Electronically signed by Simon Sandoval 05-19-2024 5:11 PM
--- NOTE | 2024-05-19 17:16 | History & Physical Report ---
Date of Service May 19, 2024 Assessment & Plan (1) Syncope and collapse: Plan: This is a 78-year-old female with past medical history of hyperlipidemia who presented to the emergency department from [place] on 05/19/2024 for syncope. Etiology: infection vs stroke/TIA vs cardiac in origin Head CT: Right internal capsule hypodensity seen which may represent age- indeterminate infarct. Further evaluation desired, MRI performed. No evidence of hemorrhage Right hip x-ray: Severe primary osteoarthritis of the right hip. No acute abnormality identified Chest x-ray: Negative EKG on admission shows normal sinus rhythm CBC: No leukocytosis, mild anemia at 11.4 BMP: Stable electrolytes and renal function Respiratory BioFire negative TSH mildly high at 4.891, Free T4 0.92 Obtain orthostatic vital signs Urinalysis pending Spoke with son Avi (POA) who is agreeable for patient undergo MRIpending Echocardiogram pending PT/OT consulted, appreciate recommendations AM CBC, BMP Plan Chronic conditions: HLD: statin Mental health: fluoxetine Disposition: tele Code: full DVT prophylaxis: Lovenox Discussed with both sons via phone at time of admission. Ritesh Cárdenas is patient's POA. Case was discussed with Dr. Rodríguez at time of admission. History of Present Illness Primary Care Provider: [facility] This is a 78-year-old female with past medical history of hyperlipidemia who presented to the emergency department from [place] on 05/19/2024 for syncope. Patient is demented at baseline. Patient is alert and oriented x 1. No history able to be obtained from the patient. Per staff at [place], patient was at the lunch table today and laid her head down and was unconscious. Undetermined amount of time how long patient was unconscious for. At time of my encounter in the emergency department, she was able to converse in a conversation but appeared confused. Spoke with patient's 2 sons which both state that this is her baseline. Patient ritesh Cárdenas is her POA who has confirmed that she is a full code. While in the emergency department she did undergo a CBC that was without leukocytosis. Mild anemia of 11.4. BMP stable. Respiratory BioFire negative. Her urine is pending. Her head CT did show an abnormality of a right internal capsule hypodensity. Patient's POA is agreeable for her to undergo an MRI. Her chest x-ray was negative. Her right hip x-ray was significant for severe primary osteoarthritis of the right hip. Allergies Allergy/AdvReac Type Severity Reaction Status Date / Time bee venom protein (honey bee) Allergy Severe ANAPHYLAXIS Verified 05/20/24 07:56 hornet venom Allergy Severe ANAPHYLAXIS Verified 05/20/24 07:56 Sulfa (Sulfonamide Allergy Severe Shortness Verified 05/20/24 07:56 Antibiotics) of Breath sulfamethoxazole Allergy Severe SHORTNESS Verified 05/20/24 07:56 OF BREATH trimethoprim Allergy Severe SHORTNESS Verified 05/20/24 07:56 OF BREATH blue dye Allergy Unknown UNKNOWN Verified 05/20/24 07:56 duloxetine Allergy Unknown UNKNOWN Verified 05/20/24 07:56 erythromycin base Allergy Unknown UNKNOWN Verified 05/20/24 07:56 Iodinated Contrast Media Allergy Unknown UNKNOWN Verified 05/20/24 07:56 naproxen Allergy Unknown Unknown Verified 05/20/24 07:56 NSAIDS (Non-Steroidal Allergy Unknown UNKNOWN Verified 05/20/24 07:56 Anti-Inflamma Penicillins Allergy Unknown Unknown Verified 05/20/24 07:56 quetiapine Allergy Unknown UNKNOWN Verified 05/20/24 07:56 shellfish derived Allergy Unknown UNKNOWN Verified 05/20/24 07:56 venlafaxine Allergy Unknown UNKNOWN Verified 05/20/24 07:56 zolpidem Allergy Unknown UNKNOWN Verified 05/20/24 07:56 Home Medications Medication Instructions Recorded Confirmed Type multivitamin 1 tab PO DAILY 02/22/20 09/23/22 History acetaminophen 650 mg 650 mg PO Q8H PRN Pain #30 tabs 08/29/22 09/23/22 Rx tablet,extended release aspirin 81 mg tablet,delayed 81 mg PO DAILY #90 tabs 08/29/22 09/23/22 Rx release simvastatin 20 mg tablet 20 mg PO DAILY #90 tabs 08/29/22 09/23/22 Rx sodium chloride 1,000 mg soluble 1,000 mg PO BID #60 tabs 09/19/22 09/23/22 Rx tablet cephalexin 500 mg capsule 500 mg PO BID #10 caps 03/07/24 Rx acetaminophen 650 mg 650 mg PO Q8H PRN Pain 05/19/24 05/19/24 History tablet,extended release aspirin 81 mg tablet,delayed 81 mg PO DAILY 05/19/24 05/19/24 History release fluoxetine 40 mg capsule 40 mg PO DAILY 05/19/24 05/19/24 History multivitamin with folic acid 400 1 tab PO DAILY 05/19/24 05/19/24 History mcg tablet (Daily-Trista (with folic acid)) simvastatin 20 mg tablet 20 mg PO HS 05/19/24 05/19/24 History sodium chloride 1,000 mg soluble 1,000 mg PO BID 05/19/24 05/19/24 History tablet Past Med/Surg History Problem List (Updated 05/20/24 @ 09:12 by Isrrael Zacarias MD) Cerebral amyloid angiopathy COVID-19 (Acute) Syncope and collapse (Acute) Acute hyponatremia (Acute) Decreased activities of daily living (ADL) (Acute) Anemia Hyponatremia Fall (Acute) Contusion of face (Acute) Facial droop (Acute) Weakness (Acute) LLL pneumonia (Acute) Cough (Acute) Neutropenia Unsatisfactory living conditions Poor personal hygiene At risk for unsafe behavior Screening for thyroid disorder Screening for lipid disorders Anxiety (Acute) Asthma (Acute) Depression (Acute) Metabolic acidosis with normal anion gap and failure of bicarbonate regeneration Right hip pain (Acute) Right lumbar radiculitis (Acute) Major neurocognitive disorder (Acute) Thoracic or lumbosacral neuritis or radiculitis, unspecified (Acute) Hypercholesterolemia (Acute) Common migraine without aura (Acute) Chronic cerebral ischemia (Acute) CKD (chronic kidney disease) (Acute) Health care maintenance Depression (Acute) GERD without esophagitis (Acute) Vitamin D deficiency Short-term memory loss (Acute) Medical History Facial laceration Facial laceration Contusion of left forearm Surgical History S/P hysterectomy with oophorectomy S/P shoulder surgery S/P total knee arthroplasty Family History Mother Congestive heart failure Diabetes Heart disease Other Family history non-contributory Denies family history of Ovarian cancer Prostate cancer Myocardial infarction Breast cancer Colorectal cancer Social History Smoking Status: Never smoker Second Hand Exposure: No; Do You Dip or Chew Tobacco: No; Hx Alcohol Use: No Hx Substance Use: No Preferred Language: Japanese Communication Ability: Effective Hearing Ability: Normal Emergency Room Tech Required: No Beliefs That Will Affect Care: None marital status: Current Living Situation: Jail current occupational status: retired Feels Safe at Home: Yes Safety Concerns: Feels Safe At This Time Childhood Exposure to Second-Hand Smoke: No Dental Care, Regularly: No Physical Activity Frequency: 3-4 Times per Week Seatbelt Use: always Sunscreen Use: Yes Assistive Devices: Denture - Upper and Walker Physical Exam Constitutional: WD/WN, vitals as above Eyes: PERRL, conjunctivae normal, anicteric sclerae Respiratory: normal respiratory effort, lungs clear to auscultation Cardiovascular: RRR, no murmur, no edema Psychiatric: AxOx1 Results & Data Results & Data Vital Signs (Past 12 Hours) Vital Signs Temp Pulse Pulse Resp BP BP Pulse Ox 05/19/24 16:42 62 05/19/24 15:30 65 16 113/80 94 05/19/24 14:31 61 16 107/62 100 05/19/24 13:29 90 20 98 05/19/24 13:29 98 05/19/24 12:49 67 05/19/24 12:49 36.5 C 67 16 113/67 100 O2 Del Method 05/19/24 16:42 05/19/24 15:30 Room Air 05/19/24 14:31 Room Air 05/19/24 13:29 Room Air 05/19/24 13:29 05/19/24 12:49 05/19/24 12:49 Room Air Supervising Physician Co-Signing Physician Notes I personally saw and examined the patient. I independently reviewed the labs, EKG, imaging, problem list, medication list, past medical history and family history. I verified all hancock points and agree with Kayla Mcmullen PA-C with the following exceptions and/or additions: Nando Jon is a 78 year old female who presents to the ER with syncope and collapse. Unable to get any history from patient, please see subjective above for collateral history. O/E Alert but confused, HS RRR, no murmurs, Chest CTAB, Abdo SNT, moving all 4 extremities, no facial droop A/P Syncope and collapse - monitor on telemetry, TTE, orthostatics, appears to be at baseline to the best of our knowledge at this time Abnormal CT head - MRI brain pending PG Care Time/CCT Total # of Minutes Spent Total Time Spent with Patient: Total time spent is greater than 50% in coordination of care (as documented) at patient's floor/unit and/or counseling patient: Coding Level of Care Code 51170 INT INP/OBS CARE 3/75MIN Diagnoses Syncope and collapse R55
[2024-05-19] MEDS: SODIUM CHLORIDE 0.9% 1,000 ML IV SCH (17:20)
--- NOTE | 2024-05-19 18:07 | Magnetic Resonance Report ---
MRI of the brain performed without IV contrast History: Syncope Comparison: No prior Technique: Sagittal T1-weighted and axial T2-weighted, T2/FLAIR and diffusion-weighted with ADC map images of the brain were obtained without IV contrast. Findings: No evidence for intracranial mass lesion, mass-effect, midline shift, or abnormal extra-axial fluid collection. There is moderate to marked generalized cerebral atrophy. Mild periventricular and subcortical high signal intensity change on T2/FLAIR in the white matter consistent with chronic small vessel ischemic disease. On the T2 star images, there are innumerable punctate foci of susceptibility artifact seen primarily throughout the cerebral and cerebellar cortex. No significant susceptibility foci seen in the deep lamar nuclei or the brainstem. No convincing evidence for acute hemorrhage on the T1-weighted images. No abnormally reduced diffusion or evidence for acute infarct. Normal intravascular flow voids. Right-sided pseudophakia. Impression: No acute intracranial pathology. Age-related changes, as above. Innumerable punctate foci of susceptibility artifact are seen throughout the cerebral and cerebellar cortex, compatible with microhemorrhages, likely in the setting of cerebral amyloid angiopathy. Findings are less likely to represent diffuse axonal injury given the lack of findings in the white matter, deep lamar nuclei, or brainstem. Electronically signed by Simon Sandoval 05-19-2024 6:06 PM
--- NOTE | 2024-05-19 21:35 | Electrocardiogram Report ---
Test Reason : Blood Pressure : */* mmHG Vent. Rate : 67 BPM Atrial Rate : 67 BPM P-R Int : 164 ms QRS Dur : 78 ms QT Int : 400 ms P-R-T Axes : 71 46 56 degrees QTcB Int : 422 ms Normal sinus rhythm Normal ECG No previous ECGs available Confirmed by Estevan Wong ([id number]) on 05/19/2024 9:34:58 PM Referred By: Janneth Pelletier [place] Confirmed By: Estevan Wong
[2024-05-19 21:39] LABS: Appearance Urine Turbid (Clear); Bacteria Urine Automated 4+ (None Seen); Bilirubin Urine Negative (Negative); Blood Urine 1+ (Negative); Color Urine Yellow; Epithelial Cell Urine Auto 0-2 /hpf (0-2); Glucose Urine UA Negative (Negative); Ketones Urine Negative (Negative); Leukocyte Esterase Urine 3+ (Negative); Nitrite Urine Positive (Negative); Protein Urine Trace (Negative); RBC Urine Automated 0-2 /hpf (0-2); Specific Gravity Urine 1.012 (1.000-1.030); Urobilinogen Urine Negative (Negative); WBC Urine Automated >50 /hpf (0-5)
[2024-05-19] MEDS: ACETAMINOPHEN 325 MG TAB PO PRN (21:56)
[2024-05-19] MEDS: SIMVASTATIN 20 MG TAB PO SCH (22:14)
[2024-05-19] MEDS: SODIUM CHLORIDE 1 GM TABLET PO SCH (22:14)
[2024-05-20 07:34] LABS: Hematocrit (blood only) 33.6 % (37.0-47.0); Hemoglobin 10.9 g/dl (12.0-16.0); Mean Corpuscular Hemoglobin 28.5 pg (25.0-34.0); Mean Corpuscular Hgb Conc 32.4 g/dL (32.0-36.0); Mean Platelet Volume 9.2 fL (9.4-12.4); Platelet Count 170 K/uL (130-400); RDW Coefficient of Variation 13.2 % (11.5-14.5); RDW Standard Deviation 42.4 fL (36.4-46.3); Red Blood Count 3.82 M/uL (4.20-5.40); White Blood Count 3.12 K/ul (4.8-10.8)
[2024-05-20] MEDS: FLUoxetine HCL 20 MG CAP PO SCH (07:56)
[2024-05-20 07:57] LABS: Calcium 8.9 mg/dl (8.6-10.3); Creatinine Clr Calc Pharmacy 45.8 ml/min; Potassium 3.9 mmol/L (3.5-5.1)
[2024-05-20] MEDS: cefTRIAXone SODIUM 1,000 MG/50 ML BAG IV SCH (08:45)
--- NOTE | 2024-05-20 08:54 | Neurology Consultation ---
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 Given her MRI changes seen on May 19 she likely has microhemorrhages from cerebral amyloid angiopathy. These changes are chronic/old and there is no acute hemorrhage noted on CT or MRI. The microhemorrhage seen on MRI from cerebral amyloid angiopathy typically does not show up on CT scan. There is a marked change of microhemorrhages currently compared to September of 2022 Patient's main problem coming to the hospital was syncope/altered for unresponsive state of uncertain etiology. She did not have any seizure activity noted. I doubt this represented any type of seizure. A cardiac dysrhythmia cannot be excluded. The cerebral amyloid angiopathy may have something to do with the sudden unresponsive state but no acute bleeds or changes were noted. There was no acute stroke. Cerebral vasculature/blood issue cannot entirely be excluded either. Patient has a history of migraine headaches for decades which have improved/resolved Patient has a history of significant depression which seems to be improved and stable on fluoxetine. With her dementia, she does not have any obvious behavioral issues. There is no specific treatment for cerebral amyloid angiopathy. Typically anticoagulants are avoided to prevent increased risk of bleeding but antiplatelet medication such as aspirin likely does not make her at greater bleeding risk. Recommendations: 1. Keep 81 mg aspirin tablet daily or every other day to prevent small vessel ischemic disease 2. Consider Taxifolin trial as an outpatient. 3. Memantine could be initiated as an outpatient (5 mg twice a day for 1 month then 10 mg twice a day) for dementia but I would not start this in the hospital. 4. Consider echocardiogram if not already ordered. 5. CT angiography of the head and neck was considered, however, due to her unknown iodinated contrast media allergy/reaction, it is probably more prudent to obtain an MRA of the head and neck for a definitive look at her blood vessels 6. Follow-up with neurology 2 to 3 weeks after discharge (with PA). Overall, I spent a total of 110 minutes with this case, including review of records, review of CT and MRI films, direct evaluation the patient at bedside, report generation, and discussion of the case with the patient and RN at bedside, Dr. Estevan michele, and Dr. Cervantes including differential diagnosis and treatment options. History of Present Illness Reason for Consultation: Patient is a 78-year-old, who was asked to see at the request of Kayla Mcmullen PA-C Requesting Physician: Kayla Mcmullen PA-C Attending Physician: Molly Cervantes MD History of Present Illness Patient has a longstanding history of headaches (which have improved), depression, and dementia. I started seeing her probably 20 years ago and have been following her ever since, although my last visit with her specifically was in 2016. She was last seen in neurology clinic in December 2020 by Kirsten Jovel PA-C and we have not seen her since. Because of small vessel ischemic disease she was initiated on 81 mg aspirin daily back in December 2020. She was diagnosed years ago with vascular dementia and major neurocognitive disorder. MRIs of the brain have shown mild to moderate small vessel ischemic disease. An MRI of the brain in September 2022 was interpreted as mild generalized atrophy, and mild small vessel ischemic disease. No other diagnoses were made. I reviewed these films. The patient has been a resident of [facility] and her current medications include 81 mg aspirin tablet daily, fluoxetine 40 mg daily, simvastatin 20 mg daily and multivitamins. Patient was in her usual state of health when on May 19 she was eating in the morning sitting at the table. Apparently she laid her head down and went "unresponsive" for several minutes (as much as 5 minutes). She did not fall to the ground and did not remember the event when she was responsive again. She had no stiffening or jerking of the limbs, tongue biting or urinary incontinence. She denied any pain, headache, dizziness, or other symptoms. She arrived to the emergency room on May 19, at 1249 with a temperature of 36.5, pulse 67 and regular, respiratory rate 10, blood pressure 113/67, O2 saturation 100. She was described as being awake and alert, pleasant and cooperative. She could add nothing to her history and no one found any focal neurologic findings, meningeal signs, or encephalopathy. CBC showed very mild anemia and CHEM profile was unremarkable. TSH was elevated at 4.89. Urinalysis was questionable for infection with elevated white cells. Chest x-ray was unremarkable. Because of right hip pain she had plain x-rays of the right hip which showed severe osteoarthritis. CT scan of the head shows old ischemic changes particularly in the right internal capsule. There was no evidence for acute bleed. I reviewed these films. MRI of the brain showed mild generalized atrophy and mild to moderate old small vessel ischemic disease as before (2022) but T2*(fast) imaging showed many tiny hypointensities consistent with microhemorrhage (old). These had markedly progressed compared to the previous MRI of September 2022. I reviewed these films with Dr. Barreto, radiology. The changes are consistent with cerebral amyloid angiography and likely do not represent calcium or iron. Laboratory studies this morning revealed anemia on CBC and unremarkable CHEM profile. Renal profile is normal. Blood pressure has remained normal at 130/65. Urine culture is pending. Has no complaint of pain, headache, dizziness, vision problems, weakness, numbness and she feels "good". She will have some pain if her right hip is moved. Allergies Allergy/AdvReac Type Severity Reaction Status Date / Time bee venom protein (honey bee) Allergy Severe ANAPHYLAXIS Verified 05/20/24 07:56 hornet venom Allergy Severe ANAPHYLAXIS Verified 05/20/24 07:56 Sulfa (Sulfonamide Allergy Severe Shortness Verified 05/20/24 07:56 Antibiotics) of Breath sulfamethoxazole Allergy Severe SHORTNESS Verified 05/20/24 07:56 OF BREATH trimethoprim Allergy Severe SHORTNESS Verified 05/20/24 07:56 OF BREATH blue dye Allergy Unknown UNKNOWN Verified 05/20/24 07:56 duloxetine Allergy Unknown UNKNOWN Verified 05/20/24 07:56 erythromycin base Allergy Unknown UNKNOWN Verified 05/20/24 07:56 Iodinated Contrast Media Allergy Unknown UNKNOWN Verified 05/20/24 07:56 naproxen Allergy Unknown Unknown Verified 05/20/24 07:56 NSAIDS (Non-Steroidal Allergy Unknown UNKNOWN Verified 05/20/24 07:56 Anti-Inflamma Penicillins Allergy Unknown Unknown Verified 05/20/24 07:56 quetiapine Allergy Unknown UNKNOWN Verified 05/20/24 07:56 shellfish derived Allergy Unknown UNKNOWN Verified 05/20/24 07:56 venlafaxine Allergy Unknown UNKNOWN Verified 05/20/24 07:56 zolpidem Allergy Unknown UNKNOWN Verified 05/20/24 07:56 Home Medications Medication Instructions Recorded Confirmed Type multivitamin 1 tab PO DAILY 02/22/20 09/23/22 History acetaminophen 650 mg 650 mg PO Q8H PRN Pain #30 tabs 08/29/22 09/23/22 Rx tablet,extended release aspirin 81 mg tablet,delayed 81 mg PO DAILY #90 tabs 08/29/22 09/23/22 Rx release simvastatin 20 mg tablet 20 mg PO DAILY #90 tabs 08/29/22 09/23/22 Rx sodium chloride 1,000 mg soluble 1,000 mg PO BID #60 tabs 09/19/22 09/23/22 Rx tablet cephalexin 500 mg capsule 500 mg PO BID #10 caps 03/07/24 Rx acetaminophen 650 mg 650 mg PO Q8H PRN Pain 05/19/24 05/19/24 History tablet,extended release aspirin 81 mg tablet,delayed 81 mg PO DAILY 05/19/24 05/19/24 History release fluoxetine 40 mg capsule 40 mg PO DAILY 05/19/24 05/19/24 History multivitamin with folic acid 400 1 tab PO DAILY 05/19/24 05/19/24 History mcg tablet (Daily-Trista (with folic acid)) simvastatin 20 mg tablet 20 mg PO HS 05/19/24 05/19/24 History sodium chloride 1,000 mg soluble 1,000 mg PO BID 05/19/24 05/19/24 History tablet Patient History Medical History Facial laceration Facial laceration Contusion of left forearm Surgical History S/P hysterectomy with oophorectomy S/P shoulder surgery S/P total knee arthroplasty Family History Mother Congestive heart failure Diabetes Heart disease Other Family history non-contributory Denies family history of Ovarian cancer Prostate cancer Myocardial infarction Breast cancer Colorectal cancer Social History Smoking Status: Never smoker Second Hand Exposure: No; Do You Dip or Chew Tobacco: No; Hx Alcohol Use: No Hx Substance Use: No Preferred Language: Syriac Communication Ability: Effective Hearing Ability: Normal International Sourcing Manager Required: No Beliefs That Will Affect Care: None marital status: Current Living Situation: [facility]odial [facility] Personal Care Facility current occupational status: retired Feels Safe at Home: Yes Safety Concerns: Feels Safe At This Time Childhood Exposure to Second-Hand Smoke: No Dental Care, Regularly: No Physical Activity Frequency: 3-4 Times per Week Seatbelt Use: always Sunscreen Use: Yes Assistive Devices: Denture - Upper and Walker Review of Systems Constitutional: no fever, no fatigue and no weakness Eyes: no diplopia, no eye pain and no worsening vision Ear, Nose, Mouth, Throat: no ear pain, no tinnitus, no hearing loss, no dizziness, no snoring, no hoarseness and no dysphagia Respiratory: no cough and no dyspnea Cardiovascular: no chest pain, no palpitations and no lightheadedness Gastrointestinal: no abdominal pain, no nausea and no vomiting Genitourinary: no dysuria, no urinary frequency and no urinary incontinence Musculoskeletal: + joint pain; no back pain, no neck pain , no radicular pain and no myalgia Integumentary: no rash and no lesions Neurologic: + memory loss; no gait abnormality, no l ocalized weakness, no generalized weakness, no tingling, no numbness, no tremor(s), no abnormal movements, no headache(s), no abnormal speech and no confusion Psychiatric: no depression, no irritability, no anxiety, no difficulty concentrating, no confusion and no hallucinations Endocrine: no fatigue and no flushing Hematologic / Lymphatic: no easy bleeding and no easy bruising Allergy / Immunological: no urticaria and no problem reported Exam (Neuro) Physical Exam: The patient is right-handed. The patient is awake, alert, and attentive. Speech is normal without any aphasia or dysarthria. Mood and affect are normal and appropriate. Appearance and grooming are reasonable. Short and long-term memory are poor. She was oriented to her name but not her age, the month, the year, the date, the day of the week, president, or other facts. Pupils are 4 mm bilaterally and reactive to light. Extraocular eye muscles are intact without nystagmus. Visual acuity and visual jones seem normal grossly to confrontation. There are no deficits to sensation in the face in all 3 distributions of the fifth cranial nerve bilaterally. Corneal reflexes are positive bilaterally. Facial strength and symmetry was normal bilaterally. Hearing seems intact grossly to voice and finger rub bilaterally. Palate moves well without asymmetry. There is normal sternocleidomastoid and trapezius strength bilaterally. Tongue is midline with good strength bilaterally. Neck has a full range of motion without discomfort. There are no cervical bruits bilaterally. There are no cranial or ocular bruits. Heart is without murmur. There is a regular rhythm and rate. Cervical, thoracic, and lumbar spine are nontender to palpation. Gait was not tested but stance sitting up in bed is reasonable With outstretched arms there is no drift. There are no resting, postural, or action tremors. There is no ataxia with finger to nose testing. There is good facility in the hands. No other abnormal involuntary movements are noted. Motor strength is 5/5 diffusely in the arms bilaterally including deltoids, biceps, triceps, brachioradialis, wrist flexors and extensors, piling setter, and intr insic hand muscles. Motor strength is 5/5 diffusely in the legs bilaterally including hip flexors, quadriceps, hamstrings, gastrocnemius, tibialis anterior, tibialis posterior, and Peroneii muscles bilaterally. Toe extensors are normal and there is good bulk in the extensor digitorum brevis muscles bilaterally. The limbs have good tone without rigidity or spasticity. There is no atrophy noted in the muscles. Muscle bulk is normal, there is no tenderness to palpation, no myotonia to percussion, and no fasciculations seen. Sensory examination is intact to touch and pin throughout all 4 limbs diffusely. Reflexes are 2/4 in the biceps, triceps, brachioradialis, quadriceps, and Achilles tendons bilaterally. Toes are downgoing with plantar stimulation bilaterally. Peripheral pulses are present and of normal quality distally in all 4 limbs. There is no peripheral edema noted in the limbs. Results & Data Vital Signs (Past 12 Hours) Vital Signs Temp Pulse Pulse Pulse Resp BP Pulse Ox 05/20/24 08:31 36.5 C 67 16 130/65 98 05/20/24 07:18 05/20/24 07:06 63 05/20/24 04:00 36.7 C 68 18 138/75 99 05/20/24 01:32 36.9 C 68 17 142/69 H 99 05/20/24 01:31 70 05/20/24 01:10 36.8 C 71 18 154/83 H 96 05/19/24 23:37 36.8 C 63 18 130/73 98 O2 Del Method 05/20/24 08:31 Room Air 05/20/24 07:18 Room Air 05/20/24 07:06 05/20/24 04:00 Room Air 05/20/24 01:32 Room Air 05/20/24 01:31 05/20/24 01:10 Room Air 05/19/24 23:37 Room Air PG Care Time/CCT Total # of Minutes Spent Total Time Spent with Patient: Total time spent is greater than 50% in coordination of care (as documented) at patient's floor/unit and/or counseling patient: Coding Level of Care Code 22698 INT INP/OBS CARE 3/75MIN Diagnoses Syncope and collapse R55 Major neurocognitive disorder F01.50 Cerebral amyloid angiopathy E85.4; I68.0 Common migraine without aura G43.009 Depression F32.9 Time Spent (min) 110
[2024-05-20] MEDS ORDERED: ASPIRIN 81 MG ECTAB PO SCH (09:00)
--- NOTE | 2024-05-20 11:58 | Magnetic Resonance Report ---
MRA OF THE INTRACRANIAL CIRCULATION WITHOUT CONTRAST CLINICAL HISTORY: Syncope,microbleeds. COMPARISON STUDY: Head CT and MRI the brain May 19, 2024. TECHNIQUE: Utilizing a 1.5 Lia magnet and 3-D [id number] technique, unenhanced MRA of the intra cranial circulation was obtained. FINDINGS: The bilateral M1, M2, A1 and A2 segments are patent. There is no intracranial aneurysm. No large vessel occlusion is identified. Irregularity of the bilateral A1 segments is probably artifactu al. Posterior circulation is also intact. Brain parenchyma is better depicted on recent MRI. Ventricu lar system is unremarkable. Basal cisterns are patent. There are no extra axial collections. IMPRESSION: 1. No large vessel occlusion. No intracranial aneurysm. 2. Apparent irregularity bilateral A1 segments, likely technical. ACT 112: Negative or not required by law. Electronically signed by: Wild Barreto M.D. 05/20/2024 11:57 AM
--- NOTE | 2024-05-20 13:22 | XCELERA ---
[id number]
--- NOTE | 2024-05-20 16:25 | Hospitalist Progress Note ---
Date of Service May 20, 2024 Assessment & Plan (1) Syncope and collapse: Plan: This is a 78-year-old female with h/o hyperlipidemia, dementia who presented to the emergency department from [facility] on 05/19/[address]: Right internal capsule hypodensity seen which may represent age- indeterminate infarct MRI brain w/ Innumerable punctate foci of susceptibility artifact are seen throughout the cerebral and cerebellar cortex, compatible with microhemorrhages, likely in the setting of cerebral amyloid angiopathy. MRA head negative; MRA neck unable to complete due to patient preference--> carotid US negative Chest x-ray: Negative EKG on admission shows normal sinus rhythm and remains in NSR on tele monitoring ECHO with preserved EF, no WMAs, no significant valvular disease, negative bubble study CBC: No leukocytosis, mild anemia at 11.4; BMP: Stable electrolytes and renal function; TSH normal; Respiratory BioFire negative Orthostatic vital signs negative UA shows evidence of infection and pt admits to having urinary issues prior to admission although exact history is difficult to obtain due to cognitive impairment MRI findings not cause of her syncope. Suspect 2/2 UTI and bladder symptoms Treating UTI with antibiotics Recommend 30 day event monitor after discharge for further arrhythmia monitoring (2) Cerebral amyloid angiopathy: Plan: MRI brain here with typical findings c/w CAA She has very minimal similar findings on previous MRI as reviewed by Neuro. Has been on ASA 81mg daily for small vessel ischemic disease for several years and perhaps this increased the frequency/incidence of microhemorrhages. Literature shows debate about continuing antiplatelets in setting of CAA but given her underlying small vessel disease, may be beneficial to at least take ASA 3x/week (MWF), but would avoid anticogulation. Discussed risk vs benefit with son on phone. Discussed with Neuro as well Hold ASA for now BP control important but her BPs are fairly normal (3) UTI (urinary tract infection): Plan: UA abnormal, may have caused syncope No signs of sepsis Start ceftriaxone and follow Ur cx (4) Vascular dementia: Plan: secondary to CAA supportive care Plan Chronic conditions: HLD: statin Mental health: fluoxetine Hyponatremia-continue NaCl tabs 1000mg po bid Disposition: continued stay on tele, PT/OT recommend return to [facility] DVT prophylaxis: add SCDs, avoid Lovenox due to CAA Discussed care with son via phone on 05/20 Admission and Anticipated Discharge Date Admission Date: May 19, 2024 Subjective Pt reports feeling well, has no concerns. She is pleasantly forgetful at times. Denies CP, SOB, headache, lightheadedness. I discussed her care with Neurology on phone as well as her son. Tele with NSR, PACs, rates 60-70s Physical Exam Constitutional: WD/WN, vitals as above Eyes: PERRL, conjunctivae normal, anicteric sclerae ENMT: external ear and nose normal, oropharynx normal Neck: trachea midline, no thyromegaly Respiratory: normal respiratory effort, lungs clear to auscultation Cardiovascular: RRR, no murmur, no edema Chest (Breasts): Chest: normal inspection of chest Gastrointestinal (Abdomen): normal bowel sounds, soft, nontender, no hepatosplenomegaly Musculoskeletal: Extremities: extremities normal to inspection; no cyanosis and no clubbing Skin: no rashes, warm and dry Neurologic: moves all extremities and awake; no focal motor deficits Speech / Cognition: normal speech Psychiatric: Orientation: alert, oriented to person and cooperative Lymphatic: no lymphedema Results & Data Results & Data Vital Signs (Past 12 Hours) Vital Signs Temp Pulse Pulse Resp BP Pulse Ox O2 Del Method 05/20/24 16:19 36.3 C L 101 H 20 146/67 H 92 Room Air 05/20/24 08:31 36.5 C 67 16 130/65 98 Room Air 05/20/24 07:18 Room Air 05/20/24 07:06 63 Laboratory Results CBC, BMP, troponin, UA reviewed Diagnostic Findings MRI brain, MRA head, Carotid US reviewed PG Care Time/CCT Total # of Minutes Spent Total Time Spent with Patient: Total time spent is greater than 50% in coordination of care (as documented) at patient's floor/unit and/or counseling patient: Coding Level of Care Code 45633 SUB INP/OBS CARE 3/50MIN Diagnoses Syncope and collapse R55 Cerebral amyloid angiopathy E85.4; I68.0 UTI (urinary tract infection) N39.0 Vascular dementia F01.50
--- NOTE | 2024-05-20 18:30 | Ultrasound Report ---
EXAM: US Duplex Bilateral Extracranial Arteries INDICATION: Syncope. TECHNIQUE: Real-time duplex ultrasound scan of the extracranial arteries integrating B-mode two-dimensional vascular structure, Doppler spectral analysis and color flow Doppler imaging. COMPARISON: No relevant prior studies available. FINDINGS: Right common carotid artery: Peak systolic velocity 74 cm/s d. No occlusion or segmental stenosis on color flow and spectral Doppler imaging. Right internal carotid artery: Peak systolic velocity 80 cm/s. There is mild plaque at the bulb. No occlusion or segmental stenosis on color flow and spectral Doppler imaging. Right external carotid artery: No occlusion or segmental stenosis on color flow and spectral Doppler imaging. Right vertebral artery: No abnormality noted. Antegrade flow. Right ICA/CCA ratio: 1.1. Within normal limits. Left common carotid artery: Peak systolic velocity 80 cm/s. No occlusion or segmental stenosis on color flow and spectral Doppler imaging. Left internal carotid artery: Peak systolic velocity 76 cm/s. Minimal plaque at the bulb. No occlusion or segmental stenosis on color flow and spectral Doppler imaging. Left external carotid artery: No abnormality noted. No occlusion or segmental stenosis on color flow and spectral Doppler imaging. Left vertebral artery: No abnormality noted. Antegrade flow. Left ICA/CCA ratio: 1.0. Within normal limits. Lymph nodes: No abnormality noted. No lymphadenopathy. CAROTID STENOSIS REFERENCE USING SRU CRITERIA: Mild - <50% stenosis. ICA PSV is less than 125 cm/second and plaque or intimal thickening is visible. Moderate - 50-69% stenosis. ICA PSV is 125 to 230 cm/second and plaque is visible. Severe - 70-94% stenosis. ICA PSV is more than 230 cm/second and visible plaque with lumen narrowing is seen. Near occlusion - 95-99% stenosis. ICA PSV is variable and significant plaque with luminal narrowing is seen. Occluded - 100% stenosis. No flow identified. IMPRESSION: There is minimal plaque in each carotid bulb without hemodynamic significant carotid stenosis. ACT 112: Negative or not required by law. Electronically signed by Radha Vegas 05-20-2024 6:29 PM
[2024-05-21 06:28] LABS: Basophils # (auto) 0.01 K/uL (0.00-0.20); Basophils % (auto) 0.4 %; Eosinophils # (auto) 0.18 K/uL (0.00-0.50); Eosinophils % (auto) 6.7 %; Hematocrit (blood only) 33.4 % (37.0-47.0); Hemoglobin 10.8 g/dl (12.0-16.0); Immature Granulocytes # (auto) 0.01 K/uL (0.01-0.20); Immature Granulocytes % (auto) 0.4 %; Lymphocytes # (auto) 0.57 K/uL (1.20-3.40); Lymphocytes % (auto) 21.1 %; Mean Corpuscular Hemoglobin 28.3 pg (25.0-34.0); Mean Corpuscular Hgb Conc 32.3 g/dL (32.0-36.0); Mean Corpuscular Volume 87.7 fL (80.0-100.0); Mean Platelet Volume 9.5 fL (9.4-12.4); Monocytes # (auto) 0.33 K/uL (0.11-0.59); Monocytes % (auto) 12.2 %; Neutrophils % (auto) 59.2 %; Platelet Count 179 K/uL (130-400); RDW Coefficient of Variation 13.2 % (11.5-14.5); Red Blood Count 3.81 M/uL (4.20-5.40)
[2024-05-21 06:42] LABS: BUN Creatinine Ratio 17.2 (10-20); Calcium 9.4 mg/dl (8.6-10.3); Creatinine Clr Calc Pharmacy 49.3 ml/min; Potassium 3.9 mmol/L (3.5-5.1)
[2024-05-21 07:01] LABS: Ferritin 86.8 ng/ml (8-388)
[2024-05-21 07:17] LABS: Folate (Folic Acid),Ser orPlas > 22.30 ng/ml (>5.38)
[2024-05-21 07:18] LABS: Vitamin B12 574 pg/ml (180-914)
[2024-05-21 08:27] VITALS: BP 121/69; PULSE 76; RESP 18; TEMP 97.5; O2SAT 96
--- NOTE | 2024-05-21 09:35 | Neurology Progress Note ---
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 Given her MRI changes seen on May 19 she likely has microhemorrhages from cerebral amyloid angiopathy (CAA). These changes are chronic/old and there is no acute hemorrhage noted on CT or MRI. The microhemorrhage seen on MRI from cerebral amyloid angiopathy typically does not show up on CT scan. There is a marked change of microhemorrhages currently compared to September of 2022 Patient's main problem coming to the hospital was syncope/altered for unresponsive state of uncertain etiology. She did not have any seizure activity noted. I doubt this represented any type of seizure. A cardiac dysrhythmia cannot be excluded. The cerebral amyloid angiopathy may have something to do with the sudden unresponsive state but no acute bleeds or changes were noted. There was no acute stroke. Cerebral vasculature/blood issue cannot entirely be excluded either. Patient has a history of migraine headaches for decades which have improved/resolved Patient has a history of significant depression which seems to be improved and stable on fluoxetine. With her dementia, she does not have any obvious behavioral issues. There is no specific treatment for cerebral amyloid angiopathy. Typically anticoagulants are avoided to prevent increased risk of bleeding. Antiplatelet medication is more controversial as to its use. I spoke with Dr. Powers, stroke neurologist, regarding his case. After review he recommends stopping aspirin as this may have increased bleeding risk given her significant progression in the last 18 months. Although there is no specific/definite treatment for cerebral amyloid angiopathy, he has used minocycline and Cilostazol (Pletal). Currently, there are some trials that suggest that minocycline (starting dose 100 mg a day and possibly titrating to 200 mg a day) reduces intracerebral hemorrhage occurrence in those with CAA. In addition, Cilostazol 100 mg every 12 hours has been used in comparison to aspirin and may be beneficial with less bleeding risk (than aspirin). This medication dilates blood vessels and does have some antiplatelet aggregation effects. Recommendations: 1. Agree with discontinuing aspirin. 2. Could consider low-dose minocycline, 100 mg daily, or Cilostazol 100mg bid, to reduce intracerebral hemorrhage risk. These could be initiated as an outpatient 3. Memantine could be initiated as an outpatient (5 mg twice a day for 1 month then 10 mg twice a day) for dementia. 4. No further neurologic testing or treatment recommendations to make at this time, and recommend follow-up with neurology 2 to 3 weeks after discharge (with PA). Overall, I spent a total of 50 minutes with this case, including review of records, direct evaluation the patient at bedside, report generation, and discu ssion of the case with the patient and RN at bedside, Dr. Powers, and Dr. Cervantes including differential diagnosis and treatment options. Admission and Anticipated Discharge Date Admission Date: May 19, 2024 Subjective Patient has no complaint of pain or headache. She feels comfortable and is very pleasant and cooperative. She is not dizzy and cannot see well. Nursing reports no new issues and she is very pleasant and cooperative today. Echocardiogram was largely unremarkable/normal MR angiography of the head showed no obvious intracranial stenoses. She was not able to cooperate for MR angiography of the neck. Carotid ultrasound did not show any significant carotid stenosis and vertebral flow was normal. CBC was unremarkable, sed rate 39, B12 574, folate 22, and CHEM profile unremarkable. Blood pressure is 121/69 and she is afebrile. Results & Data Vital Signs (Past 12 Hours) Vital Signs Temp Pulse Pulse Resp BP Pulse Ox O2 Del Method 05/21/24 08:26 36.4 C L 76 18 121/69 96 Room Air 05/21/24 04:59 36.7 C 71 20 150/74 H 93 Room Air 05/20/24 22:47 36.6 C 66 20 118/76 98 Room Air 05/20/24 22:25 36.5 C 69 20 146/78 H 97 Room Air 05/20/24 21:45 69 Exam (Neuro) Physical Exam: She is awake and alert. She is pleasant and cooperative and speech is without aphasia or dysarthria. Extraocular eye muscles are intact without nystagmus. There is no facial droop. Tongue is midline. Coordination is normal in the arms without tremor or ataxia. Strength seems symmetrical in the limbs. PG Care Time/CCT Total # of Minutes Spent Total Time Spent with Patient: Total time spent is greater than 50% in coordination of care (as documented) at patient's floor/unit and/or counseling patient: Coding Level of Care Code 75710 SUB INP/OBS CARE 350MIN Diagnoses Syncope and collapse R55 Major neurocognitive disorder F01.50 Cerebral amyloid angiopathy E85.4; I68.0 Common migraine without aura G43.009 Depression F32.9
--- NOTE | 2024-05-21 11:43 | Discharge Summary ---
Discharge Summary Date of Service May 21, 2024 Principal Dx & Hospital Course #1 = Principal Diagnosis (1) Syncope and collapse: This is a 78-year-old female with h/o hyperlipidemia, dementia who presented to the emergency department from [facility] on 05/19/[address]: Right internal capsule hypodensity seen which may represent age- indeterminate infarct MRI brain w/ Innumerable punctate foci of susceptibility artifact are seen throughout the cerebral and cerebellar cortex, compatible with microhemorrhages, likely in the setting of cerebral amyloid angiopathy. MRA head negative; MRA neck unable to complete due to patient preference--> carotid US negative Chest x-ray: Negative EKG on admission shows normal sinus rhythm and remains in NSR on tele monitoring ECHO with preserved EF, no WMAs, no significant valvular disease, negative bubble study CBC: No leukocytosis, mild anemia at 11.4; BMP: Stable electrolytes and renal function; TSH normal; Respiratory BioFire negative Orthostatic vital signs negative UA shows evidence of infection and pt admits to having urinary issues prior to admission although exact history is difficult to obtain due to cognitive impairment MRI findings not cause of her syncope. Suspect 2/2 UTI and bladder symptoms Treating UTI with antibiotics Recommend 30 day event monitor after discharge for further arrhythmia monitoring (2) Cerebral amyloid angiopathy: MRI brain here with typical findings c/w CAA She has very minimal similar findings on previous MRI as reviewed by Neuro. Has been on ASA 81mg daily for small vessel ischemic disease for several years and perhaps this increased the frequency/incidence of microhemorrhages. Literature shows debate about continuing antiplatelets in setting of CAA Discussed risk vs benefit with son on phone. Discussed with Neuro as well who also sought out second opinion from Neuro at [facility] who recommended NOT continuing the ASA due ot increased risk of hemorrhage Discontinue aspirin BP control important but her BPs are fairly normal F/u with Neuro for CAA as well as for treatment of her dementia-considering starting memantine For CAA, could consider starting minocycline or Pletal (3) UTI (urinary tract infection): UA abnormal, may have caused syncope No signs of sepsis Received ceftriaxone x 2 doses here, dc on cefuroxxime x 5 more days Ur cx prelim growing Staph aureus but UA with +nitrite so likely a GNR--> f/u on ur cx result after discharge (4) Vascular dementia: secondary to CAA supportive care, consider starting memantine as outpt Plan Chronic conditions: HLD: statin Mental health: fluoxetine Hyponatremia-continue NaCl tabs 1000mg po bid-Na+ here normal at 135 Disposition: dc to [facility], PT/OT recommend return to [facility] DVT prophylaxis: SCDs, avoid Lovenox due to CAA Discussed care with son via phone on 05/20 and again on 05/21 (Adebayo) Notes For Next Care Provider Recommend 30 day event monitor after discharge for further arrhythmia monitoring Follow up on final urine culture after discharge Medication Changes From Visit Discontinued ASA Added cefuroxime 500mg po bid x 5 days Admission HPI Per Admitting Provider This is a 78-year-old female with past medical history of hyperlipidemia who presented to the emergency department from [facility] on 05/19/2024 for syncope. Patient is demented at baseline. Patient is alert and oriented x 1. No history able to be obtained from the patient. Per staff at [facility], patient was at the lunch table today and laid her head down and was unconscious. Undetermined amount of time how long patient was unconscious for. At time of my encounter in the emergency department, she was able to converse in a conversation but appeared confused. Spoke with patient's 2 sons which both state that this is her baseline. Patient son Avi is her POA who has confirmed that she is a full code. While in the emergency department she did undergo a CBC that was without leukocytosis. Mild anemia of 11.4. BMP stable. Respiratory BioFire negative. Her urine is pending. Her head CT did show an abnormality of a right internal capsule hypodensity. Patient's POA is agreeable for her to undergo an MRI. Her chest x-ray was negative. Her right hip x-ray was significant for severe primary osteoarthritis of the right hip. Discharge Exam Constitutional WD/WN, vitals as above Neck trachea midline, no thyromegaly Respiratory normal respiratory effort, lungs clear to auscultation Cardiovascular RRR, no murmur, no edema Chest (Breasts) Chest: normal inspection of chest Gastrointestinal (Abdomen) normal bowel sounds, soft, nontender, no hepatosplenomegaly Musculoskeletal Extremities: extremities normal to inspection; no cyanosis and no clubbing Skin no rashes, warm and dry Neurologic moves all extremities and awake; no focal motor deficits Speech / Cognition: normal speech Psychiatric Orientation: alert, oriented to person and cooperative Lymphatic no lymphedema Discharge Plan Discharge Items Patient Disposition: Personal Snf Reason For Visit: SYNCOPE Discharge Diagnosis: Syncope-possible micturition syncope UTI Cerebral amyloid angiopathy Condition on Discharge: Good Activity: Resume your previous activity Non-emergency contact: Primary Care Provider and Neurologist Call non-emergency contact if: you have any medication questions and your symptoms worsen Follow-up/Referrals: Isrrael Zacarias MD [Physician] - (Follow up within 2-3 weeks) Janneth Soto [Primary Care Provider] - (Follow up within 1-2 weeks) Diet: Regular Addtl Attending Provider Instructions: You passed out secondary to having a UTI. Continue the antibiotics for the UTI for 5 more days. The urine culture result was still pending at the time of discharge and can be followed up on by your PCP. You were found to have multiple microhemorrhages in your brain from cerebral amyloid angiopathy. Your aspirin was stopped and you should follow up with the Neurologist in the office for this. Pending Studies at Discharge: Yes (Final urine culture result) Stand-Alone Forms: My [employer], Smoking Cessation Skilled Items Patient informed of condition?: Yes DNR: No Discharge Level of Care: Other Communicable Disease: No Discharge Prognosis: Improving Lines: None Urinary Catheter: No Medications and DC Order Prescriptions: New cefuroxime axetil 500 mg tablet 500 mg PO BID Qty: 10 0RF Continued acetaminophen 650 mg Tablet Extended Release 650 mg PO Q8H PRN (Reason: Pain) Qty: 30 0RF simvastatin 20 mg tablet 20 mg PO HS multivitamin with folic acid [Daily-Trista (with folic acid)] 400 mcg tablet 1 tab PO DAILY fluoxetine 40 mg capsule 40 mg PO DAILY sodium chloride 1,000 mg Tablet,Soluble 1,000 mg PO BID Discontinued multivitamin Tablet 1 tab PO DAILY aspirin 81 mg tablet,delayed release (DR/EC) 81 mg PO DAILY Qty: 90 1RF simvastatin 20 mg tablet 20 mg PO DAILY Qty: 90 3RF sodium chloride 1,000 mg tablet,soluble 1,000 mg PO BID Qty: 60 0RF cephalexin 500 mg capsule 500 mg PO BID Qty: 10 0RF aspirin 81 mg tablet,delayed release (DR/EC) 81 mg PO DAILY acetaminophen 650 mg Tablet Extended Release 650 mg PO Q8H MDD 3G PRN (Reason: Pain ) Discharge Orders: Discharge Order (Routine); Ordered 05/21/24 Ordered By: Molly Cervantes Admission Data Admit Date/Time: 05/19/24 17:01 Attending Provider: Molly Cervantes Admit Provider: Errol Rodríguez Primary Care Provider: Janneth Soto Other Providers: Errol Rodríguez; Eddie Turner; Isrrael Zacarias; Kirsten Jovel; Lilia Turner; Ashley Brown; Brody Muñoz Other Interventions: Discharge Summary Assessment (RN) Last Done: 05/21/24 10:39 Hospital Stay Data Consultations 05/19/24 15:44 ED Decision to Admit Stat 05/19/24 19:19 Consult Neurology Routine Diagnostic Imagining Performed 05/19/24 12:49 CT head/brain wo con Stat 05/19/24 17:10 MRI Brain [MR brain wo con] Stat 05/20/24 09:29 MR angio head wo con Stat 05/20/24 16:19 US carotid doppler BI Urgent EHCO Pending Results Patient Have Any Pending Studies at Discharge: Yes (Final urine culture result) Discharge Instructions Given to Patient (Per Discharging Provider) You passed out secondary to having a UTI. Continue the antibiotics for the UTI for 5 more days. The urine culture result was still pending at the time of discharge and can be followed up on by your PCP. You were found to have multiple microhemorrhages in your brain from cerebral amyloid angiopathy. Your aspirin was stopped and you should follow up with the Neurologist in the office for this. Total Time Total Time Spent Total Time Spent (In Minutes): 35 min Total Time Includes: Examination of the Patient, Discharge Planning, Medication Reconciliation, Communication With Other Providers (Dr. Zacarias, Neurology) and Other Coding Level of Care Code 34243 INP/OBS DISCH >30 MIN Diagnoses Syncope and collapse R55 Cerebral amyloid angiopathy E85.4; I68.0 UTI (urinary tract infection) N39.0 Vascular dementia F01.50
== END 2024-05-21 11:44 | disposition home health service (06) | DRG 690 ==
LOC: ED 12:31 → MERGE 17:01 → EDINP 17:01 → SUATTDRO 17:01 → 2N 19:19